=== PATIENT | male | born 1950 | race Caucasian/White ===

== ENCOUNTER 2017-12-01 09:58 | Inpatient (IN) | payer MEDICARE, BC ==
[~2017-12-01] VITALS: Ht 180.3 cm; Wt 85.7 kg
[2017-12-01] VITALS (12 sets, daily range): BP systolic 95–143; BP diastolic 44–102
[~2017-12-01 09:58] MED LIST: BENA5TAB2 PO
--- NOTE | 2017-12-01 10:13 | NUR ---
BBRA FROM HOME C/O ALTERED THIS AM. UPON EMS ARRIVAL, PT AAO X4, NO NEURO DEFICITS, AMB WITH STEADY GAIT. RR EVEN AND UNLABORED. DR BABCOCK AT BEDSIDE FOR EVAL.
[2017-12-01 10:20] LABS: HEMATOCRIT 30 % (39-51); HEMOGLOBIN 9.9 g/dL (13.5-17.5); LYMPHOCYTES # (AUTO) 0.7 /CMM (0.8-4.8); LYMPHOCYTES % (AUTO) 5.6 % (20.0-44.0); MEAN CORPUSCULAR HEMOGLOBIN 33 PG (26.0-33.0); MEAN CORPUSCULAR HGB CONC 34 g/dl (31.0-36.0); MEAN CORPUSCULAR VOLUME 98 fL (80-96); MONOCYTES # (AUTO) 1.5 /CMM (0.1-1.30); MONOCYTES % (AUTO) 11.2 % (2.0-12.0); NEUTROPHILS # (AUTO) 10.9 /CMM (1.8-8.9); NEUTROPHILS % (AUTO) 83.2 % (43.0-81.0); PLATELET COUNT (AUTO) 146 /CMM (150-450); RDW COEFFICIENT OF VARIATION 15.1 (11.5-15.0); RED BLOOD CELL COUNT(AUTO) 3.01 MIL/uL (4.5-6.0); WHITE BLOOD COUNT (AUTO) 13.1 K/uL (4.3-11.0)
[2017-12-01] MEDS ORDERED: IV NS 0.9% 1,000 ML BAG IV ONE (10:30)
[2017-12-01 10:34] LABS: INR 1.15 (0.85-1.15)
[2017-12-01 10:35] LABS: ALANINE AMINOTRANSFERASE 74 U/L (12-78); ALBUMIN 2.6 g/dL (3.4-5.0); ALCOHOL, BLOOD < 3 mg/dL (0-0); ALKALINE PHOSPHATASE 98 U/L (46-116); ASPARTATE AMINOTRANSFERASE 143 U/L (15-37); BILIRUBIN,DIRECT 1.1 mg/dL (0.0-0.2); BILIRUBIN,TOTAL 1.7 mg/dL (0.2-1.0); CALCIUM, SERUM 12.9 mg/dL (8.5-10.1); CARBON DIOXIDE 30 mmol/L (21-32); CHLORIDE 93 mmol/L (98-107); CREATININE 2.5 mg/dL (0.6-1.3); GLUCOSE 162 mg/dL (74-106); SODIUM SERUM 132 mmol/L (136-145)
[2017-12-01 10:37] LABS: UREA NITROGEN, BLOOD 88 mg/dL (7-18)
[2017-12-01 10:38] LABS: TROPONIN I < 0.017 ng/mL (0.00-0.056)
[2017-12-01 10:43] LABS: SERUM AMMONIA 16 umol/L (11-32)
[2017-12-01 10:47] LABS: LYMPHOCYTES % (MANUAL) 7 % (16-48); MONOCYTES % (MANUAL) 8 % (0-11.0); NEUTROPHILS % (MANUAL) 85 (42-76)
[2017-12-01 10:55] LABS: THYROID STIMULATING HORMONE 1.889 uIU/mL (0.358-3.74)
--- NOTE | 2017-12-01 10:59 | NUR ---
URINE OBTAINED SENT TO LAB
[2017-12-01] MEDS ORDERED: LORAZEPAM INJ 2 MG/ML VIAL ONE ×2 (11:05→11:44)
[2017-12-01 11:17] LABS: APPEARANCE,URINE Clear (CLEAR); BILIRUBIN,URINE Negative (NEGATIVE); BLOOD, URINE Moderate Ery/uL (NEGATIVE); COLOR,URINE Yellow (YELLOW); KETONES,URINE Trace (NEGATIVE); LEUKOCYTE ESTERASE ,URINE Small (NEGATIVE); NITRITE, URINE Negative (NEGATIVE); PH,URINE 5.5 (5.0-8.0); PROTEIN,URINE Negative (NEGATIVE); UGLUCOSE Negative (NEGATIVE); UROBILINOGEN,URINE 0.2 EU/dL (0.2)
[2017-12-01 11:29] LABS: BACTERIA,URINE Few /HPF (None Seen); SQUAMOUS EPITHELIAL CELL,UR Few /HPF (None Seen)
[2017-12-01] MEDS ORDERED: LORAZEPAM INJ 2 MG/ML VIAL IV ONE ×6 (11:30→12:30)
[2017-12-01] MEDS ORDERED: Thiamine 100 MG in IV D5W 50 ML IV SCH ×2 (11:30→12:00)
[2017-12-01] MEDS ORDERED: IV NS 0.9% 1,000 ML IV ONE (11:30)
--- NOTE | 2017-12-01 11:35 | NUR ---
PAGED EPIC, DR ZACARIAS IS EDGE BASTER
[2017-12-01] MEDS ORDERED: IV NS 0.9% 1,000 ML IV PRN ×2 (11:43→12:00)
--- NOTE | 2017-12-01 11:45 | NUR ---
PAGED DR MUNGUIA
--- NOTE | 2017-12-01 11:54 | NUR ---
PATIENT TO CT
[2017-12-01] MEDS ORDERED: ZOLPIDEM TARTRATE 5 MG TABLET PO PRN (12:00)
[2017-12-01] MEDS ORDERED: MAG HYDROX/AL HYDROX/SIMETH 30 ML UDC PO PRN (12:00)
[2017-12-01] MEDS ORDERED: MAGNESIUM HYDROXIDE 30 ML UDC PO PRN (12:00)
[2017-12-01] MEDS ORDERED: ONDANSETRON HCL/PF 4 MG/2 ML VIAL IVP PRN (12:00)
[2017-12-01] MEDS: POTASSIUM CL. PREMIX PERIPHER. 50 ML IV SCH ×6 (12:00→19:17)
[2017-12-01] MEDS ORDERED: LORAZEPAM INJ 2 MG/ML VIAL IV PRN (12:00)
[2017-12-01] MEDS: Magnesium 1GM/D5W 100ML PREMIX 100 ML IV SCH ×4 (12:00→18:07)
[2017-12-01] MEDS ORDERED: Magnesium 1GM/D5W 100ML PREMIX 100 ML IV ONE ×2 (12:10→12:41)
[2017-12-01] MEDS ORDERED: POTASSIUM CL. PREMIX PERIPHER. 50 ML ONE ×2 (12:10→12:41)
--- NOTE | 2017-12-01 12:18 | NUR ---
Sharon nicole in ED - 12/01/17 at 1248 by SHANTAL SOLE PATIÑO (NATHAN) [phone]. PLS CALL FOR ANY INFORMATIONS
--- NOTE | 2017-12-01 12:19 | NUR ---
SOLE PATIÑO (SON) [phone]. PLS CALL FOR ANY INFORMATIONS
--- NOTE | 2017-12-01 12:22 | NUR ---
CALLED NURSE SUP TO ICU BED
[2017-12-01 13:01] LABS: THYROID STIMULATING HORMONE 1.989 uIU/mL (0.358-3.74)
[2017-12-01] MEDS ORDERED: POTASSIUM CHLORIDE 20 MEQ TAB.PRT.SR PO ONE (14:00)
[2017-12-01] MEDS: FOLIC ACID 1 MG TABLET PO SCH (14:00)
--- NOTE | 2017-12-01 14:00 | NUR ---
ICU/RN REPORT FROM ER - ROOM 261 REPORT RECEIVED FROM ER NURSE RUCKER FOR PT TO BE ADMITTED FOR DELIRIUM TREMENS UNDER THE CARE OF DR. ZACARIAS. AWAITING FOR PT'S ARRIVAL.
--- NOTE | 2017-12-01 14:15 | NUR ---
ICU/CLEARANCE CENTER MANAGER TO ICU PT ARRIVED VIA GURNEY ACCOMPANIED BY ER NURSE CHAIM AND PACKAGE CAR DRIVER, TRANSFERRED TO HOSPITAL BED, NO ACUTE DISTRESS, PT LETHARGIC, MUMBLES WORDS, OCCASIONALLY RESPONSE TO HIS NAME AND TOUCH. 2L O2 VIA N/C PLACED, LUNG SOUNDS CLEAR. TELE MONITORING PLACED, SINUS RHYTHM. NO EDEMA NOTED. MULTIPLE SCABS ON LEFT LOWER LEG, SKIN TEAR ON LEFT WRIST AND BRUISING ON RIGHT FOREARM. PADDING PLACED ON BED RAILS FOR SAFETY PRECAUTION. ORDERED MEDICATIONS TO BE ADMINISTERED SHORTLY. CL WITHIN REACHED AND SAFETY MAINTAINED. ON GOING MONITORING. Addendum: 12/01/17 at 1851 by CARLENE BERTRAND RN ADDENDUM: NOTED RIGHT LEG STUMP WITH SCANT SEROSANGUINEOUS DRAINAGE.
[2017-12-01] MEDS ORDERED: DEXTROSE 50%-WATER 50 ML DISP.SYRIN IV PRN (16:30)
[2017-12-01] MEDS: LORAZEPAM INJ 2 MG/ML VIAL IV PRN ×2 (16:35→23:01)
[2017-12-01] MEDS ORDERED: CEFTRIAXONE 1 G in IV NS 0.9% 50 ML IV SCH (17:00)
[2017-12-01] MEDS: BLOOD SUGAR DIAGNOSTIC 1 EACH STRIP IN SCH ×2 (17:35→21:12)
[2017-12-01] MEDS: Z GUARD REMEDY 2 OZ OINT TP PRN (17:37)
[2017-12-01] MEDS: INSULIN REGULAR, HUMAN 100 UNIT/ML 3 ML VIAL SQ PRN (18:54)
--- NOTE | 2017-12-01 19:14 | NUR ---
ICU/RN AM SHIFT END NOTES NO ACUTE CHANGE OF CONDITION NOTED SINCE PT WAS ADMITTED EARLIER IN THE DAY, ALL NEEDS MET. PT IS STILL LETHARGIC. PT ENDORSED TO PM NURSE TO CONTINUE CARE. SOFT WRISTS RESTRAINT IN PLACED, CL WITHIN REACHED AND SAFETY MAINTAINED.
--- NOTE | 2017-12-01 19:20 | NUR ---
RN NOTES RECEIVED PT ASLEEP WELL ON BED. BREATHING EVEN AND UNLABORED NO FACIAL COMPLAINED OF PAIN. ALERT TO NAME, AND TACTILE STIMULI. PT IS LETHARGIC, MUMBLING WORDS WHEN ASKED A QUESTION. AFEBRILE. VS WNL. WITH O2 2LPM A NC. SATURATION 100%. WITH IV SITE ON RAC NAD LAC G 18 RUNNING WITH NS @ 150 ML/HR AND MAGNESIUM ONGOING. WILL CONTINUE TO ADMINISTERED THE REST OF REPLACEMENT AND MEDS. RIGHT STUMP WITH DRESSING OFFLOADED WITH PILLOWS. REPOSITIONED FOR SKIN MANAGEMENT. BILATERAL SOFT WRIST RESTRAINT KEPT IN PLACED. WILL CONTINUE TO MONITOR.
--- NOTE | 2017-12-01 23:10 | NUR ---
RN NOTES DELIRIUM TREMENS NOTED ATIVAN PRN GIVEN ORDERED. WILL CONTINUE TO MONITOR.
[2017-12-02] VITALS (78 sets, daily range): BP systolic 48–152; BP diastolic 29–97
[2017-12-02] MEDS: BLOOD SUGAR DIAGNOSTIC 1 EACH STRIP IN SCH ×6 (00:24→20:13)
[2017-12-02] MEDS: IV NS 0.9% 1,000 ML IV PRN ×6 (00:51→17:34)
--- NOTE | 2017-12-02 01:20 | NUR ---
RN NOTES INFORMED BY RT THAT THEY CHANGED O2 FROM NC TO MASK @ 6LPM DUE TO SATURATION SUSTAINED TO 88%. PT SATURATION 94%. PT ASLEEP AT THIS TIME. WILL CONTINUE TO MONITOR.
[2017-12-02 04:46] LABS: BASOPHILS % (AUTO) 0.1 % (0.0-2.0); HEMATOCRIT 29 % (39-51); HEMOGLOBIN 9.7 g/dL (13.5-17.5); LYMPHOCYTES # (AUTO) 0.6 /CMM (0.8-4.8); LYMPHOCYTES % (AUTO) 3.5 % (20.0-44.0); MEAN CORPUSCULAR HEMOGLOBIN 34 PG (26.0-33.0); MEAN CORPUSCULAR HGB CONC 33 g/dl (31.0-36.0); MEAN CORPUSCULAR VOLUME 101 fL (80-96); MONOCYTES # (AUTO) 1.7 /CMM (0.1-1.30); MONOCYTES % (AUTO) 9.5 % (2.0-12.0); NEUTROPHILS # (AUTO) 15.6 /CMM (1.8-8.9); NEUTROPHILS % (AUTO) 86.9 % (43.0-81.0); PLATELET COUNT (AUTO) 163 /CMM (150-450); RDW COEFFICIENT OF VARIATION 15.4 (11.5-15.0); RED BLOOD CELL COUNT(AUTO) 2.89 MIL/uL (4.5-6.0); WHITE BLOOD COUNT (AUTO) 17.9 K/uL (4.3-11.0)
[2017-12-02 05:00] LABS: ALBUMIN 2.5 g/dL (3.4-5.0); BILIRUBIN,TOTAL 1.2 mg/dL (0.2-1.0); CALCIUM, SERUM 10.1 mg/dL (8.5-10.1); CREATININE 1.5 mg/dL (0.6-1.3); MAGNESIUM 2.2 mg/dL (1.8-2.4); PHOSPHORUS 4.1 mg/dL (2.5-4.9); POTASSIUM 3.1 mmol/L (3.5-5.1); TOTAL PROTEIN, SERUM 6.7 g/dL (6.4-8.2)
--- NOTE | 2017-12-02 05:03 | NUR ---
RN NOTES BS 143 MG/DL , INSULIN IS NOT GIVEN DUE TO PT HASN'T EAT YET, STILL ALTERED.
[2017-12-02 05:55] LABS: ABG OXYGEN SATURATION 83.8 % (92.0-98.5); ABG PCO2 105.3 mmHg (35.0-45.0); ABG PH 7.072 (7.350-7.450); ABG PO2 71.6 mmHg (75.0-100.0); AaDO2 151.7 mmHg; COHb 0.3 % (0.5-1.5); MetHb 0.9 % (0.0-1.5); O2Hb 82.8 % (94.0-97.0); SITE, ABG Left Radial; VENT MODE, BG SM
[2017-12-02] MEDS ORDERED: PROPOFOL 100 ML ONE (06:25)
--- NOTE | 2017-12-02 06:28 | NUR ---
@0545 STAT ABG WAS DONE. CRITICAL VALUE GIVEN TO OSCAR MONTENEGRO AND ED MOTION DESIGNER. CALLED ER MD FOR INTUBATION. DR BURR INTUBATED THE PT WITH 8.0 ETT SECURED AT 26CM AT THE LIP. GOOD COLOR CHANGE ON CO2 DETECTOR, EQUAL CHEST RISE AND BREATH SOUND. PLACED ON ESPRIT VENT AC 18, 550, 80% PER MD. ALARMS SET AND AUDIBLE. AMBU BAG AT BEDSIDE. Addendum: 12/02/17 at 0631 by DIONNE ROSS RT Amended: Links added.
[2017-12-02] MEDS ORDERED: SODIUM BICARBONATE SYR 50 MEQ/50 ML DISP.SYRIN IV ONE (07:00)
[2017-12-02] MEDS ORDERED: DILTIAZEM HCL 50 MG IV IV ONE (07:00)
[2017-12-02] MEDS: PROPOFOL 100 ML IV PRN ×4 (07:08→21:25)
--- NOTE | 2017-12-02 07:12 | NUR ---
RT PER MD ORDER RR INCREASED TO 24. PATIENT ORALLY INTUBATED ON MECH VENT. VENT ALARMS CHECKED + AUDIBLE. PATIENT IN CRITICAL CONDITION. SUCTIONED WITH SMALL PALE SECRETIONS. AMBU BAG AT HOB. Addendum: 12/02/17 at 0713 by IZZY CONNOR RT Amended: Links added.
[2017-12-02] MEDS ORDERED: PIPERACILLIN /TAZOBACTAM 4.5 G in IV NS 0.9% 50 ML IV SCH (07:30)
--- NOTE | 2017-12-02 07:35 | NUR ---
ICU/RN PT IS JUST INTUBATED ON THE VENT AC MODE,FIO2-80%.BP 66/35.BOLUS NS IV STARTED ORDERED.DR MUNGUIA AT BEDSIDE.LEVOPHED ORDERED.SEDATED ON DIPRIVAN .BILATERAL WRIST RESTRAINS ON .PT HAS RIGHT BKA.STUMP IS WARM AND RED.MD NOTIFIED.SUCTION PROVIDED.REPOSITION FOR COMFORT.
--- NOTE | 2017-12-02 07:50 | NUR ---
RN NOTES 05:30 - WHILE PERICARE RENDERED NOTED PT IS MORE LETHARGIC AND NOT RESPONSIVE TO PAIN, ABG ORDERED BY CHARGE NURSE WITH WITH CRITICAL VALUE OF PH 7.072, PCO2 105.3, PO2 71.6 HCO3 30.0, 05:50 CHARGE NURSE TO CALLED ER MD DR. BURR TO INTUBATE THE PATIENT 06:08 - INTUBATED PT BY DR BURR WITH 8.0 ETT SECURED AT 26CM AT THE LIP. PLACED ON VENT AC 18, 550, 80% PER MD. PT TOLERATED WELL SATURATION BACK TO 98%.STAT CXR ORDER. 06:30 - CALLED [facility] (SON) FOR UPDATE ABOUT THE PATIENT BUT NOT PICKING UP THE PHONE. 06:45 - DANIEL LEUNG CALLED BACK WITH ORDER TO CHANGE RATE TO 24 AND RECHECKED ABG AN HOUR (0800), BICARAB 50 MEQ IVP ONCE, CARDIZEM 10 MG IVP ONCE AND TI GIVE 4 BAGS OF KCL IV TO REPLACED KCL. AND PICC LINE INSERTION, NOTED AND CARRIED OUT ORDERS. DR. MUNGUIA ON THE FLOOR AND INFORMED ABOUT THE PT. EKG RESULT. 07:12AM - DR. ELAM CALLED AND UPDATE ABOUT THE PATIENT STATUS WITH ORDER TO CHANGED CEFTRIAXONE TO ZOSYN 4.5 GM IV Q8H AND DO BLOOD CULTURE. NOTED AND CARRIED OUT ORDER. THE REST OF THE ORDER AND UPDATE ABOUT THE PATIENT REPORT TO CL FOR CONTINUITY OF CARE. AND TO FOLLOW UP THE FAMILY ABOUT THE PATIENT STATUS.
[2017-12-02] MEDS: POTASSIUM CL. PREMIX PERIPHER. 50 ML IV SCH ×6 (08:03→13:25)
[2017-12-02 08:10] LABS: THYROID STIMULATING HORMONE 1.17 uIU/mL (0.358-3.74)
--- NOTE | 2017-12-02 09:00 | NUR ---
ICU/RN F/C INSERTED,OG TUBE INSERTED.REDNESS ON VICENTE AREA NOTED.CARDIZEM IV NOT GIVEN PT CONVERTED FROM A-FIB TO SINUS .EKG PROVIDED.DUE MEDS ARE GIVEN ORDERED.CONTINUE MONITORING.
[2017-12-02 09:07] LABS: ABG BASE EXCESS 1.7 mmol/L; ABG OXYGEN SATURATION 98.2 % (92.0-98.5); ABG PCO2 26.3 mmHg (35.0-45.0); ABG PH 7.562 (7.350-7.450); ABG PO2 154.5 mmHg (75.0-100.0); AaDO2 388.3 mmHg; COHb 0.2 % (0.5-1.5); MetHb 0.7 % (0.0-1.5); O2Hb 97.3 % (94.0-97.0); PEEP,BG 0 cm H2O; SITE, ABG Right Radial
[2017-12-02] MEDS: THIAMINE HCL 100 MG TABLET PO SCH (09:08)
[2017-12-02] MEDS: FOLIC ACID 1 MG TABLET PO SCH (09:08)
[2017-12-02] MEDS: LORAZEPAM INJ 2 MG/ML VIAL IV PRN ×2 (09:08→10:28)
--- NOTE | 2017-12-02 10:57 | NUR ---
WOUND CARE CONSULT: PT WAS SEEN BY PLASTIC SURGERY TEAM THIS AM. WILL DEFER TO SURGICAL TEAM FOR WOUND TREATMENT PLAN. PT IS INTUBATED. ALL SKIN PROTECTION AND PRESSURE ULCER PREVENTION MEASURES IN PLACE AND DISCUSSED WITH NURSING STAFF.
[2017-12-02] MEDS ORDERED: ETOMIDATE 2 MG/ML VIAL IV ONE (11:27)
[2017-12-02] MEDS ORDERED: ROCURONIUM BROMIDE 50 MG/5 ML IV ONE (11:27)
[2017-12-02] MEDS: PIPERACILLIN /TAZOBACTAM 3.375 G in IV D5W 50 ML IV SCH ×3 (12:02→23:42)
[2017-12-02] MEDS: SOD FERRIC GLUC 125 MG in IV NS 0.9% 100 ML IV SCH (14:08)
[2017-12-02] MEDS: NOREPINEPHRINE 8 MG in IV D5W 500 ML IV PRN (14:36)
--- NOTE | 2017-12-02 17:00 | NUR ---
ICU/RN PT PLACED ON [employer].DUE MEDS ARE GIVEN ORDERED.PT IS ON LEVOPHED AND SEDATED WITH DIPRIVAN AT 50 MCG.DUE MEDS ARE GIVEN ORDERED.SUCTION PROVIDED.REPOSITION FOR COMFORT.
[2017-12-02] MEDS ORDERED: FEE PK DOSING 1 MIN EA MC ONE (18:36)
[2017-12-02] MEDS: VANCOMYCIN 1.25 GM in IV D5W 500 ML IV SCH (19:44)
--- NOTE | 2017-12-02 20:00 | NUR ---
PRINTING ENGINEER NOTES RECEIVED PT IN BED, SEDATED. AROUSABLE TO DEEP PAIN. TELE READS SR AT 69 BPM. ON VENT VIA ETT AT AC 24, TV 550, FIO2 55%, PEEP 0, TOLERATING WELL. CURRENTLY NPO EXCEPT MEDS. CLAIRE CATH IN PLACE, DRAINING WELL TO GRAVITY. IV SITES AT RAC 18G, LAC 18G, PICC AT JOHN, RUNNING NS AT 150 ML/HR, DIPRIVAN AT 50 MCG/KG/MIN, LEVOPHED AT 2 MCG/KG/MIN. RIGHT BKA WITH WOUND, DRESSING CLEAN AND INTACT. TURNED AND REPOSITIONED, HOB ELEVATED, SIDE RAILS X3, WRIST RESTRAINTS IN PLACE, NO S/S OF PAIN.
[2017-12-02] MEDS: INSULIN REGULAR, HUMAN 100 UNIT/ML 3 ML VIAL SQ PRN (20:12)
--- NOTE | 2017-12-02 20:40 | NUR ---
PT ON VENT A/C MODE. PT TOLL SETTINGS WELL WITH NO RESPIRATORY DISTRESS NOTED ATT. PT INTUBATED WITH 8.0 ET TUBE 26 CM AT THE TEETH. VENT ALARMS CHECKED FOUND TO BE FUNCTIONAL AUDIBLE AND WITHIN LIMITS. B/S DIMINISHED SX PRN RETURNING SMALL TO MODERATE PALE YELLOW SECRETIONS. VENT PLUGGED INTO RED OUTLET. BVM AT BEDSIDE.
[2017-12-03] VITALS (83 sets, daily range): BP systolic 82–158; BP diastolic 45–97
[2017-12-03] MEDS: PROPOFOL 100 ML IV PRN ×5 (00:13→23:12)
[2017-12-03] MEDS: BLOOD SUGAR DIAGNOSTIC 1 EACH STRIP IN SCH ×8 (00:22→23:23)
[2017-12-03] MEDS: INSULIN REGULAR, HUMAN 100 UNIT/ML 3 ML VIAL SQ PRN ×4 (00:26→23:10)
[2017-12-03] MEDS: IV NS 0.9% 1,000 ML IV PRN (01:43)
[2017-12-03 04:39] LABS: BASOPHILS % (AUTO) 0.2 % (0.0-2.0); EOSINOPHILS % (AUTO) 0.2 % (0.0-6.0); HEMATOCRIT 25 % (39-51); HEMOGLOBIN 8.6 g/dL (13.5-17.5); LYMPHOCYTES # (AUTO) 0.6 /CMM (0.8-4.8); LYMPHOCYTES % (AUTO) 8.4 % (20.0-44.0); MEAN CORPUSCULAR HEMOGLOBIN 33 PG (26.0-33.0); MEAN CORPUSCULAR HGB CONC 34 g/dl (31.0-36.0); MEAN CORPUSCULAR VOLUME 98 fL (80-96); MONOCYTES # (AUTO) 1.1 /CMM (0.1-1.30); MONOCYTES % (AUTO) 16.4 % (2.0-12.0); NEUTROPHILS # (AUTO) 5.1 /CMM (1.8-8.9); NEUTROPHILS % (AUTO) 74.8 % (43.0-81.0); PLATELET COUNT (AUTO) 108 /CMM (150-450); RDW COEFFICIENT OF VARIATION 15.1 (11.5-15.0); RED BLOOD CELL COUNT(AUTO) 2.57 MIL/uL (4.5-6.0); WHITE BLOOD COUNT (AUTO) 6.9 K/uL (4.3-11.0)
[2017-12-03 04:57] LABS: ALBUMIN 1.8 g/dL (3.4-5.0); BILIRUBIN,TOTAL 1.3 mg/dL (0.2-1.0); CALCIUM, SERUM 8.5 mg/dL (8.5-10.1); CREATININE 1.2 mg/dL (0.6-1.3); MAGNESIUM 1.4 mg/dL (1.8-2.4); TOTAL PROTEIN, SERUM 5.5 g/dL (6.4-8.2)
[2017-12-03 05:12] LABS: PHOSPHORUS 0.8 mg/dL (2.5-4.9); TROPONIN I 0.783 ng/mL (0.00-0.056)
[2017-12-03 05:15] LABS: LYMPHOCYTES % (MANUAL) 7 % (16-48); NEUTROPHILS % (MANUAL) 82 (42-76)
[2017-12-03 05:16] LABS: MONOCYTES % (MANUAL) 11 % (0-11.0)
[2017-12-03] MEDS: PIPERACILLIN /TAZOBACTAM 3.375 G in IV D5W 50 ML IV SCH ×3 (05:22→17:48)
--- NOTE | 2017-12-03 05:30 | NUR ---
BOAT MECHANIC NOTES CRITICAL LAB VALUE FROM AM LABS: K 2.0 PHOS 0.8 TROPONIN 0.783 DANIEL STRATTON CONTACTED AND MADE AWARE, NEW ORDERS RECEIVED. FOR POTASSIUM, PHOSPHATE AND MAGNESIUM REPLETION AND STAT EKG.
[2017-12-03] MEDS ORDERED: POTASSIUM CL. PREMIX PERIPHER. 50 ML IV STA (05:37)
[2017-12-03] MEDS ORDERED: Magnesium 1GM/D5W 100ML PREMIX 100 ML IV ONE (05:55)
[2017-12-03] MEDS: Magnesium 1GM/D5W 100ML PREMIX 100 ML IV SCH ×5 (06:06→18:54)
--- NOTE | 2017-12-03 06:20 | NUR ---
HI TEACHER NOTES CONTACTED DANIEL STRATTON WITH EKG RESULTS AND MADE AWARE. SHE WILL MAKE DR MUNGUIA AWARE AND HE WILL SEE THE PATIENT THIS MORNING, PER DANIEL STRATTON.
[2017-12-03] MEDS ORDERED: POTASSIUM CL. PREMIX PERIPHER. 50 ML IV SCH ×2 (07:00→13:00)
--- NOTE | 2017-12-03 07:15 | NUR ---
INFORMATION ASSURANCE ENGINEER NOTES RECEIVED PATIENT SEDATED , RESPONSIVE TO DEEP PAIN STIMULI , NOT IN ACUTE DISTRESS , RESPIRATIONS EVEN AND UNLABORED WITH SPO2 OF 100% VIA MECHANICAL VENT SETTINGS ORDERED . ETT 8.0 / [address] , SR 80'S WITH EPISODES OF AFIB , FC DRAINING VIA GRAVITY WITH CLEAR YELLOW URINE , R BKA DRESSING C/D/I , OGT IN PLACE CLAMPED , JOHN PICC LINE WITH DIRPIVAN @ 50MCG/KG/MIN , 1GM OF MAGNESIUM @ 100ML/HR , INFUSING WELL , RIGHT AND LEFT AC # 18 PATENT AND INTACT SL , ALL NEEDS ATTENDED , BED ON LOW AND LOCKED POSITION ,PADDED SIDE RAILS X2 , HOB @ 35 , WILL CONTINUE TO MONITOR
[2017-12-03] MEDS: Potassium Chloride 40 MEQ in IV NS 0.9% 1,000 ML IV SCH ×3 (07:22→23:10)
[2017-12-03] MEDS: Potassium Phosphate meq 11 MEQ in IV D5W 100 ML IV SCH ×2 (07:22→10:15)
[2017-12-03 07:56] LABS: CALCIUM, SERUM 8.8 mg/dL (8.5-10.1); CREATININE 1.3 mg/dL (0.6-1.3); MAGNESIUM 1.8 mg/dL (1.8-2.4)
[2017-12-03 07:58] LABS: PHOSPHORUS 0.8 mg/dL (2.5-4.9); POTASSIUM 2.1 mmol/L (3.5-5.1)
[2017-12-03] MEDS: FOLIC ACID 1 MG TABLET PO SCH (08:24)
[2017-12-03] MEDS: THIAMINE HCL 100 MG TABLET PO SCH (08:24)
[2017-12-03] MEDS: VANCOMYCIN 1.25 GM in IV D5W 500 ML IV SCH ×2 (08:25→20:00)
--- NOTE | 2017-12-03 09:00 | NUR ---
APPLICATIONS CONSULTANT NOTES DIPRIVAN OFF , PT ON SEDATION VACATION ,BILATERAL SOFT WRIST RESTRAINTS IN PLACE , WILL CONTINUE TO MONITOR
--- NOTE | 2017-12-03 10:00 | NUR ---
CHILDREN'S LUNCHROOM SUPERVISOR NOTES RECEIVED A CALL FROM RADIOLOGY , FOLLOWING UP WITH CT OF THE RIGHT KNEE WITHOUT CONTRAST , DISCUSSED THAT PT IS CURRENTLY OFF SEDATION FOR SEDATION VACATION , WILL CALL THEM LATER IF PT IS BACK ON SEDATION
--- NOTE | 2017-12-03 10:37 | NUR ---
TELEPHONE ANSWERING SERVICE OPERATOR NOTES NOTIFIED DR MUNGUIA REGARDING EKG RESULT OF THE PATIENT , MD AWARE , NO NEW ORDERS RECEIVED
--- NOTE | 2017-12-03 11:03 | NUR ---
MAKING MACHINE CATCHER NOTES SEEN AND EVALUATED BY DR JEAN , DISCUSSED LABS , CHEST XRAY , V/S , CURRENT VENT SETTINGS , OFF PRESSORS @ 0600 AND DIPRIVAN @ 0900 , PATIENT RESPONSIVE TO PAIN STIMULI , STILL SEDATED , PER MD CHANGE RATE TO 16 , ORDERS CARRIED OUT
[2017-12-03] MEDS ORDERED: POTASSIUM CHLORIDE 20 MEQ POWDER PACKET GT ONE (13:30)
[2017-12-03] MEDS: SOD FERRIC GLUC 125 MG in IV NS 0.9% 100 ML IV SCH (13:33)
--- NOTE | 2017-12-03 13:43 | NUR ---
YARN EXAMINER NOTES DONOVAN RESTARTED @ 5MCG/KG/MIN DUE TO HR OF AFIB 130'S NON SUSTAINING WITH EPISODES OF DISTRESS , RR OF 35 CPM , SPO2 OF 88-90% WITH MODERATE AGITATION , WILL CONTINUE TO MONITOR Addendum: 12/03/17 at 1344 by JACQUELYN YANG RN PATIENT ABLE TO FOLLOW SIMPLE COMMANDS ,OPENS EYES ,TRACKS , DROWSY ,
[2017-12-03] MEDS: LORAZEPAM INJ 2 MG/ML VIAL IV PRN ×2 (14:19→18:14)
--- NOTE | 2017-12-03 15:03 | NUR ---
calender worker helper received a phone call from pt's son Prince requesting to speak to KEY regarding discharge plan, caregiving services etc. KEY met with Prince and rn case manager hospice Melissa Fraser outside office. Prince informed KEY that pt. lives alone and is an amputee. Pt. needs assistance in taking his medications etc. According to Prince, pt. does not care for himself well. Melissa Fraser discussed with Prince about snf placement versus home health. Prince is unsure if pt. would accept SNF placement. Pt. is currently intubated. Prince was given various brochures for caregiving services.
--- NOTE | 2017-12-03 15:13 | NUR ---
PT RECEIVED IN ICU ORALLY INTUBATED ON MECHANICAL VENT W/ SETTINGS PER MD ORDER. VENT IN RED OUTLET, AMBUBAG AT BEDSIDE, VENT ALARMS CHECKED AND AUDIBLE. PT SX'ED AND LAVAGED PRN, HME CHANGED PRN. BREATH SOUNDS EQUAL, DIMINISHED. NO RESP DISTRESS NOTED. PLAN IS TO CONTINUE CARE UNDER CURRENT MD ORDERS AND MONITOR FOR CHANGES. Addendum: 12/03/17 at 1514 by NINA CHENG RT Amended: Links added.
--- NOTE | 2017-12-03 16:30 | NUR ---
FINGER BUFF SEWER NOTES SPOKE WITH RADIOLOGIST , FOLLOWED UP THE CT SCAN OF THE RIGHT KNEE WITHOUT CONTRAST , PER QU , THEY ARE STILL DOING ER THEY WILL CALL ME ONCE THEY ARE DONE .
[2017-12-03 17:03] LABS: CALCIUM, SERUM 8.3 mg/dL (8.5-10.1); CREATININE 1.1 mg/dL (0.6-1.3); MAGNESIUM 1.7 mg/dL (1.8-2.4); PHOSPHORUS 1.3 mg/dL (2.5-4.9); POTASSIUM 3.2 mmol/L (3.5-5.1)
--- NOTE | 2017-12-03 17:30 | NUR ---
SUPERVISOR EDUCATION NOTES CALLED ARNIE MUNGUIA , DISCUSSED REPEAT BMP RESULTS , PT STILL ON IVF OF NS WITH 40MEQ KCL @ 100ML/HR , LATEST BLOOD SUGAR OF 128MG/DL , PT ON Q4 MODERATE SLIDING SCALE , PER POST ACUTE CARE NURSE PRACTITIONER REPLETE WITH KPHOS 15MMOL X1 AND GIVE MAGNESIUM 2GM IV X1 AND CHANGE SSI TO NPO Q6 SLIDING SCALE , ORDERS CARRIED OUT ,
[2017-12-03] MEDS ORDERED: DEXTROSE 50%-WATER 50 ML DISP.SYRIN IV PRN (18:00)
[2017-12-03] MEDS ORDERED: POTASSIUM PHOSPHATE MM 15 MMOL in IV D5W 250 ML IV ONE (18:00)
--- NOTE | 2017-12-03 19:30 | NUR ---
ICU NOTES RECEIVED PT AGITATED ON VENT VAI ORAL ETT 40% FI02 SATURATION OF 97%.DIPRIVAN INCREASED TO 20 MCG.KG/MIN.MONITOR SHOWS NSR WITHOUT ECTOPICS.RECEIVING 2GM OF MAGNESIUM AND KPHOS 15MMOL.SUCTIONED FOR SCANT YELLOW SECRETIONS FROM ETT AND MODERATE WHITE ORAL SECRETIONS, ORAL CARE DONE.
--- NOTE | 2017-12-03 20:07 | NUR ---
PT RECEIVED INTUBATED 8.0 ETT SECURED AT 26CM AT THE LIP. NO RESP DISTRESS. PT TOLERATING VENT SETTINGS. SX'D FOR SML AMT OF THICK SPANN SECRETIONS. VENT ALARMS SET AND AUDIBLE. AMBU BAG AT BEDSIDE. ETT SECURED, CUFF HOME THEATER EXPERT. VENT PLUGGED INTO RED OUTLET. WILL CONTINUE TO MONITOR. Addendum: 12/03/17 at 2009 by DIONNE ROSS RT Amended: Links added.
--- NOTE | 2017-12-03 21:00 | NUR ---
ICU NOTES TO CT SCAN OF RT. KNEE TO R/O OSTEOMYELITIS.PT ON DIPRIVAN AT 20 MCG/KG/MIN.RESTRAINTS RESTARTED,OFF ONLY FOR 1HR.
--- NOTE | 2017-12-03 21:21 | NUR ---
@[address] @[address]
--- NOTE | 2017-12-03 22:00 | NUR ---
ICU NOTES SON PASCUAL CALLED TO INQUIRE RE:PT'S CONDITION,CONDITION REPORT GIVEN.
--- NOTE | 2017-12-03 23:20 | NUR ---
ICU NOTES BACK TO ROOM WITHOUT INCIDENT.MONITOR SHOWS SINUS RHYTHM-SINUS ARRHYTHMIA W/PAC'S AND PVC'S TO SHORT RUN A-FIB CONTROLLED VENT.RATE.
[2017-12-04] VITALS (51 sets, daily range): BP systolic 88–142; BP diastolic 51–78
[2017-12-04] MEDS: PIPERACILLIN /TAZOBACTAM 3.375 G in IV D5W 50 ML IV SCH ×5 (00:14→23:58)
--- NOTE | 2017-12-04 04:45 | NUR ---
ICU NOTES BUCKING THE VENT,RR=25/MIN.SUCTIONED FOR COPIOUS AMT. OF THICK YELLOW SECRETIONS W/ SALINE LAVAGE.SAT=86%.
[2017-12-04 04:46] LABS: BASOPHILS % (AUTO) 0.3 % (0.0-2.0); EOSINOPHILS % (AUTO) 0.9 % (0.0-6.0); HEMATOCRIT 28 % (39-51); HEMOGLOBIN 9.2 g/dL (13.5-17.5); LYMPHOCYTES # (AUTO) 0.8 /CMM (0.8-4.8); MEAN CORPUSCULAR HEMOGLOBIN 33 PG (26.0-33.0); MEAN CORPUSCULAR HGB CONC 33 g/dl (31.0-36.0); MEAN CORPUSCULAR VOLUME 98 fL (80-96); MONOCYTES # (AUTO) 1.6 /CMM (0.1-1.30); MONOCYTES % (AUTO) 18.8 % (2.0-12.0); PLATELET COUNT (AUTO) 103 /CMM (150-450); RDW COEFFICIENT OF VARIATION 15.6 (11.5-15.0); RED BLOOD CELL COUNT(AUTO) 2.84 MIL/uL (4.5-6.0); WHITE BLOOD COUNT (AUTO) 8.5 K/uL (4.3-11.0)
--- NOTE | 2017-12-04 04:56 | NUR ---
ICU NOTES SATURATION REMAINS LOW AT 86%,FIO2 INCREASED TO 60% BY RT.DIPRIVAN INCREASED TO 30MCG/KG/MIN FOR AGITATION.
[2017-12-04 04:59] LABS: ALBUMIN 1.9 g/dL (3.4-5.0); BILIRUBIN,TOTAL 1.7 mg/dL (0.2-1.0); CALCIUM, SERUM 7.4 mg/dL (8.5-10.1); MAGNESIUM 1.7 mg/dL (1.8-2.4); PHOSPHORUS 1.4 mg/dL (2.5-4.9); POTASSIUM 3.1 mmol/L (3.5-5.1); TOTAL PROTEIN, SERUM 5.8 g/dL (6.4-8.2)
--- NOTE | 2017-12-04 05:15 | NUR ---
FiO2 INCREASED TO 60% DO TO LOW O2 SAT. RN NOTIFIED.
[2017-12-04] MEDS: BLOOD SUGAR DIAGNOSTIC 1 EACH STRIP IN SCH ×4 (05:28→23:58)
[2017-12-04] MEDS: PROPOFOL 100 ML IV PRN ×3 (05:29→23:59)
[2017-12-04 05:37] LABS: EOSINOPHILS % (MANUAL) 2 % (0-4); LYMPHOCYTES % (MANUAL) 10 % (16-48); MONOCYTES % (MANUAL) 12 % (0-11.0); NEUTROPHILS % (MANUAL) 76 (42-76)
--- NOTE | 2017-12-04 06:25 | NUR ---
ICU/RN. CONDITION REPORT UNCHANGED,SAT 98% ON 60%.REMAINS ON DIPRIVAN DRIP.
--- NOTE | 2017-12-04 07:09 | NUR ---
ICU NOTES REPORT AND CARE OF PT GIVEN TO SELENE MOORE.
--- NOTE | 2017-12-04 07:45 | NUR ---
MANUFACTURING MAINTENANCE MANAGER RECEIVED PATIENT FROM THE PREVIOUS SHIFT. PATIENT IS IN BED. RESTING COMFORTABLY. SEDATED ON DIPRIVAN 30 MCG. VENT SETTINGS REVIEWED AND VERIFIED. STABLE BP. CLAIRE DRAINING URINE TO GRAVITY. RESTRAINTS ARE ON FOR SAFETY. TURNED AND REPOSITIONED FOR COMFORT AND WOUND PREVENTION. WILL CONTINUE TO MONITOR AND PROVIDE CARE.
[2017-12-04 08:24] LABS: ABG OXYGEN SATURATION 95.1 % (92.0-98.5); ABG PCO2 28.7 mmHg (35.0-45.0); ABG PH 7.477 (7.350-7.450); ABG PO2 81.6 mmHg (75.0-100.0); AaDO2 314.6 mmHg; COHb 0.2 % (0.5-1.5); PEEP,BG 0 cm H2O; SITE, ABG Right Radial; VT, ABG 550 mL
[2017-12-04] MEDS: VANCOMYCIN 1.25 GM in IV D5W 500 ML IV SCH ×2 (08:37→20:15)
[2017-12-04] MEDS: Potassium Chloride 40 MEQ in IV NS 0.9% 1,000 ML IV SCH ×2 (08:38→20:39)
[2017-12-04] MEDS: FOLIC ACID 1 MG TABLET PO SCH (08:38)
[2017-12-04] MEDS: THIAMINE HCL 100 MG TABLET PO SCH (08:38)
--- NOTE | 2017-12-04 08:50 | NUR ---
TAILOR GARMENT FITTER DURING 40 MINUTES SEDATION VACATION TIME, RN TURNED OFF THE PROPOFOL GTT. PATIENT NOTED TO WAKE UP, BUT WITH DISTRESS. PATIENT NOTED TO BITE ON THE ETT, AND TO HAVE FACIAL GRIMACING. NO PURPOSEFUL MOVEMENT. ORAL SECTIONS SUCTIONED. RESTARTED ON SEDATION DUE TO HIGH LEVEL OF DISTRESS.
[2017-12-04] MEDS: POTASSIUM PHOSPHATE MM 15 MMOL in IV D5W 250 ML IV SCH ×2 (09:42→13:59)
[2017-12-04] MEDS: Magnesium 1GM/D5W 100ML PREMIX 100 ML IV SCH ×2 (09:46→11:59)
[2017-12-04] MEDS ORDERED: POTASSIUM CL. PREMIX PERIPHER. 50 ML IV SCH (12:00)
--- NOTE | 2017-12-04 12:07 | NUR ---
VENT CHANGES BELOW PER DR. JEAN: VT 500 FIO2 50% Addendum: 12/04/17 at 1208 by HOMERO PONCE RT Amended: Links added.
[2017-12-04] MEDS: INSULIN REGULAR, HUMAN 100 UNIT/ML 3 ML VIAL SQ PRN (12:11)
[2017-12-04] MEDS: SOD FERRIC GLUC 125 MG in IV NS 0.9% 100 ML IV SCH (17:32)
--- NOTE | 2017-12-04 18:50 | NUR ---
JUDO TEACHER RN COMMUNICATED WITH ARNIE REGARDING INABILITY TO DO MRI OF THE INFECTED KNEE SINCE FACILITY DOES NOT HAVE MRI COMPATIBLE VENTILATORS. ARNIE INFORMED RN TO HOLD OFF ON THE MRI AND ENDORSE TO NEXT SHIFT.
--- NOTE | 2017-12-04 19:30 | NUR ---
HEAD OF STRATEGY INITIAL NOTE RECEIVED PATIENT SEDATED. NO S/S OF PAIN OR DISCOMFORT. NO RESPIRATORY DISTRESS NOTED. WITH ETT AT 8CM/26CM AT THE LIP. WITH VENT SETTINGS AC 16, TV 500, FIO2 50%, PEEP 0. WITH OGT PATENT, NOT IN PLACE, ADVANCED OGT, PLACEMENT CONFIRMED BY TWO NURSES. OGT IN PLACE. ON TELE MONITOR SR. WITH JOHN PICC LINE PATENT AND INTACT, IVF RUNNING, DIPRIVAN AT 30MCG/KG/MIN. BILATERAL SOFT WRIST RESTRAINTS IN PLACE, CIRCULATION CHECKED. F/C PATENT AND INTACT, DRAINING BY GRAVITY. HOB ELEVATED. TURNED AND REPOSITIONED. SIDE RAILS UP AND LOCKED. BED KEPT AT LOWEST POSITION. WILL CONTINUE TO MONITOR.
--- NOTE | 2017-12-04 22:24 | NUR ---
PT RECEIVED INTUBATED 8.0 ETT SECURED AT 26CM AT THE LIP. NO RESP DISTRESS. PT TOLERATING VENT SETTINGS. SX'D FOR MOD AMT OF THICK YELLOW SECRETIONS. VENT ALARMS SET AND AUDIBLE. AMBU BAG AT BEDSIDE. ETT SECURED, CUFF BEHAVIORAL PSYCHOLOGIST. VENT PLUGGED INTO RED OUTLET. WILL CONTINUE TO MONITOR. Addendum: 12/04/17 at 2224 by DIONNE ROSS RT Amended: Links added.
[2017-12-05] VITALS (56 sets, daily range): BP systolic 100–138; BP diastolic 51–86
[2017-12-05] MEDS: INSULIN REGULAR, HUMAN 100 UNIT/ML 3 ML VIAL SQ PRN (00:02)
--- NOTE | 2017-12-05 04:00 | NUR ---
PLUG DRILL OPERATOR NOTE NOTED WITH ORAL TEMP 99.8. COOLING MEASURES RENDERED. WILL CONTINUE TO MONITOR.
[2017-12-05 04:20] LABS: BASOPHILS % (AUTO) 0.2 % (0.0-2.0); EOSINOPHILS % (AUTO) 0.7 % (0.0-6.0); HEMATOCRIT 26 % (39-51); HEMOGLOBIN 8.8 g/dL (13.5-17.5); LYMPHOCYTES # (AUTO) 0.7 /CMM (0.8-4.8); MEAN CORPUSCULAR HEMOGLOBIN 33 PG (26.0-33.0); MEAN CORPUSCULAR HGB CONC 34 g/dl (31.0-36.0); MEAN CORPUSCULAR VOLUME 98 fL (80-96); MONOCYTES # (AUTO) 1.7 /CMM (0.1-1.30); MONOCYTES % (AUTO) 15.9 % (2.0-12.0); NEUTROPHILS # (AUTO) 8.3 /CMM (1.8-8.9); NEUTROPHILS % (AUTO) 77.2 % (43.0-81.0); PLATELET COUNT (AUTO) 131 /CMM (150-450); RDW COEFFICIENT OF VARIATION 15.1 (11.5-15.0); RED BLOOD CELL COUNT(AUTO) 2.69 MIL/uL (4.5-6.0); WHITE BLOOD COUNT (AUTO) 10.8 K/uL (4.3-11.0)
[2017-12-05 04:46] LABS: TROPONIN I 0.08 ng/mL (0.00-0.056)
[2017-12-05] MEDS: ACETAMINOPHEN 325 MG TABLET PO PRN (05:13)
[2017-12-05] MEDS: BLOOD SUGAR DIAGNOSTIC 1 EACH STRIP IN SCH ×3 (05:13→17:19)
[2017-12-05] MEDS: PIPERACILLIN /TAZOBACTAM 3.375 G in IV D5W 50 ML IV SCH ×3 (05:13→17:21)
[2017-12-05 05:42] LABS: LYMPHOCYTES % (MANUAL) 8 % (16-48); MONOCYTES % (MANUAL) 12 % (0-11.0); NEUTROPHILS % (MANUAL) 80 (42-76)
[2017-12-05 06:06] LABS: ALBUMIN 1.6 g/dL (3.4-5.0); BILIRUBIN,TOTAL 2.2 mg/dL (0.2-1.0); CALCIUM, SERUM 7.2 mg/dL (8.5-10.1); MAGNESIUM 1.5 mg/dL (1.8-2.4); PHOSPHORUS 1.7 mg/dL (2.5-4.9); POTASSIUM 3.2 mmol/L (3.5-5.1); TOTAL PROTEIN, SERUM 5.4 g/dL (6.4-8.2)
--- NOTE | 2017-12-05 06:10 | NUR ---
ELECTRONIC DESIGN ENGINEER CLOSING NOTE NO SIGNIFICANT CHANGES OVERNIGHT. TOLERATING VENT SETTINGS, SUCTIONED NEEDED. OGT PATENT AND INTACT, IN PLACE. F/C PATENT AND INTACT, DRAINING BY GRAVITY. IVF RUNNING, DIPRIVAN AT 30MCG/KG/MIN. ALL DUE MEDS GIVEN. SEIZURE PRECAUTIONS OBSERVED. KEPT CLEAN AND DRY. TURNED AND REPOSITIONED Q2 AND PRN. WOUND TX PROVIDED. SIDE RAILS UP AND LOCKED. BED KEPT AT LOWEST POSITION. WILL ENDORSE CONTINUITY OF CARE TO AM NURSE.
--- NOTE | 2017-12-05 06:42 | NUR ---
TEXTED DR. HERRERA FOR MRI APPROVAL.
[2017-12-05] MEDS: PROPOFOL 100 ML IV PRN ×3 (06:45→21:15)
--- NOTE | 2017-12-05 06:47 | NUR ---
PROFESSIONAL GOLF TOURNAMENT PLAYER NOTE NOTED PATIENT WITH BLACK TARRY STOOL. SPECIMEN COLLECTED, MADE AWARE. WILL RELAY TO AM NURSE.
[2017-12-05] MEDS: VANCOMYCIN 1.25 GM in IV D5W 500 ML IV SCH ×2 (08:56→19:57)
[2017-12-05] MEDS: Potassium Chloride 40 MEQ in IV NS 0.9% 1,000 ML IV SCH (08:56)
[2017-12-05] MEDS: THIAMINE HCL 100 MG TABLET PO SCH (08:56)
[2017-12-05] MEDS: FOLIC ACID 1 MG TABLET PO SCH (08:56)
--- NOTE | 2017-12-05 10:26 | NUR ---
AIRCRAFT BODY REPAIRER POST CPAP NOTE OFF SEDATION PATIENT NOTED TO BE RESTLESS AND AGITATED WITH RR OF 48 ON CPAP MODE. PATIENT WAS RESTARTED ON DIPRIVAN. MERCHANT MILL UTILITY WORKER AWARE.
[2017-12-05] MEDS ORDERED: POTASSIUM CHLORIDE 20 MEQ POWDER PACKET GT ONE ×2 (10:30→13:00)
[2017-12-05] MEDS: Magnesium 1GM/D5W 100ML PREMIX 100 ML IV SCH ×2 (13:04→15:35)
[2017-12-05] MEDS ORDERED: FUROSEMIDE 20 MG/2 ML VIAL IV STA (14:45)
--- NOTE | 2017-12-05 14:47 | NUR ---
0940 pt placed on cpap mode per md order. alarms adjusted. at 1030 pt placed back on ac mode. due to elevated work of breathing. RN and MD aware of changes.
[2017-12-05] MEDS: SOD FERRIC GLUC 125 MG in IV NS 0.9% 100 ML IV SCH (15:53)
[2017-12-05] MEDS ORDERED: NEUTRA PHOS 1 POWD.PACKET PO ONE (17:00)
[2017-12-05] MEDS: LACTOBACILLUS RHAMNOSUS GG 1 EACH CAP.SPRINK PO SCH (17:21)
[2017-12-05 17:33] LABS: OCCULT BLOOD STOOL POSITIVE (NEGATIVE)
--- NOTE | 2017-12-05 20:00 | NUR ---
received pt from day shift, sedated on Diprivan at 30mcg, SR, on the vent, lungs congested, some pitting/non pitting, edema, OG clamped, f/c good output, restraints on, R BKA dressing on, v/s stable, no pain, pt turned and repositioned.
[2017-12-06] VITALS (59 sets, daily range): BP systolic 84–131; BP diastolic 41–72
[2017-12-06] MEDS: BLOOD SUGAR DIAGNOSTIC 1 EACH STRIP IN SCH ×5 (00:09→23:06)
[2017-12-06] MEDS: PIPERACILLIN /TAZOBACTAM 3.375 G in IV D5W 50 ML IV SCH ×5 (00:09→23:06)
[2017-12-06] MEDS: Potassium Chloride 40 MEQ in IV NS 0.9% 1,000 ML IV SCH ×2 (00:09→12:12)
[2017-12-06] MEDS: INSULIN REGULAR, HUMAN 100 UNIT/ML 3 ML VIAL SQ PRN ×3 (00:12→23:07)
[2017-12-06] MEDS: PROPOFOL 100 ML IV PRN ×5 (01:15→21:00)
[2017-12-06 04:14] LABS: BASOPHILS % (AUTO) 0.2 % (0.0-2.0); EOSINOPHILS % (AUTO) 0.6 % (0.0-6.0); HEMATOCRIT 26 % (39-51); HEMOGLOBIN 8.8 g/dL (13.5-17.5); LYMPHOCYTES # (AUTO) 0.8 /CMM (0.8-4.8); LYMPHOCYTES % (AUTO) 7.1 % (20.0-44.0); MEAN CORPUSCULAR HEMOGLOBIN 32 PG (26.0-33.0); MEAN CORPUSCULAR HGB CONC 33 g/dl (31.0-36.0); MEAN CORPUSCULAR VOLUME 97 fL (80-96); MONOCYTES # (AUTO) 1.7 /CMM (0.1-1.30); MONOCYTES % (AUTO) 14.5 % (2.0-12.0); NEUTROPHILS % (AUTO) 77.6 % (43.0-81.0); PLATELET COUNT (AUTO) 147 /CMM (150-450); RDW COEFFICIENT OF VARIATION 15.7 (11.5-15.0); RED BLOOD CELL COUNT(AUTO) 2.71 MIL/uL (4.5-6.0); WHITE BLOOD COUNT (AUTO) 11.6 K/uL (4.3-11.0)
--- NOTE | 2017-12-06 04:54 | NUR ---
PT REC'D INTUBATED VIA ETT SZ 8 SECURED AT 26CM AT THE LIP. PT ON [facility] VENT SETTINGS CHARTED. NO RESP DISTRESS NOTED. NO CHANGES MADE THROUGHOUT SHIFT. SX'D THICK MOD AMT OF YELLOW SECRETIONS. ALARMS ARE SET AND AUDIBLE, VENT PLUGGED INTO RED OUTLET. AMBU BAG BEDSIDE. WILL CONTINUE TO MONITOR. Addendum: 12/06/17 at 0455 by OSVALDO GARCIA RT Amended: Links added.
[2017-12-06 05:13] LABS: CALCIUM, SERUM 7.3 mg/dL (8.5-10.1); MAGNESIUM 1.5 mg/dL (1.8-2.4); PHOSPHORUS 1.6 mg/dL (2.5-4.9); POTASSIUM 3.8 mmol/L (3.5-5.1)
[2017-12-06] MEDS: ACETAMINOPHEN 325 MG TABLET PO PRN ×2 (05:24→15:59)
[2017-12-06 05:54] LABS: BAND % (MANUAL) 2 % (0.0-5.0); LYMPHOCYTES % (MANUAL) 11 % (16-48); METAMYELOCYTES % 5 % (0-0); MONOCYTES % (MANUAL) 4 % (0-11.0); MYELOCYTES % 1 % (0-0); NEUTROPHILS % (MANUAL) 76 (42-76); PROMYELOCYTES % 1 % (0-0)
--- NOTE | 2017-12-06 07:30 | NUR ---
ICU/RN PT IS INTUBATED ON THE VENT AC MODE.FIO2-50%.V/S STABLE,AFEBRILE.NO PAIN REPORTED AT THIS TIME .SEDATED ON DIPRIVAN.RIGHT UPPER ARM PICC LINE.IV INFUSING ORDERED.OG TUBE CLAMPED.F/C DRAINING WITH VASILE URINE.PT HAS RIGHT LEG BKA.STUMP COVERED WITH CLEAN DRESSING AND ELEVATED. SUCTION PROVIDED.LABS REVIEW. NOTIFIED.NEW ORDERS RECEIVED.CONTINUE MONITORING.
[2017-12-06] MEDS: VANCOMYCIN 1.25 GM in IV D5W 500 ML IV SCH ×2 (07:46→19:55)
[2017-12-06] MEDS: THIAMINE HCL 100 MG TABLET PO SCH (08:14)
[2017-12-06] MEDS: Magnesium 1GM/D5W 100ML PREMIX 100 ML IV SCH ×2 (08:14→08:42)
[2017-12-06] MEDS: FOLIC ACID 1 MG TABLET PO SCH (08:14)
[2017-12-06] MEDS: LACTOBACILLUS RHAMNOSUS GG 1 EACH CAP.SPRINK PO SCH ×2 (08:14→15:59)
[2017-12-06] MEDS ORDERED: POTASSIUM PHOSPHATE MM 15 MMOL in IV D5W 250 ML IV SCH (09:00)
--- NOTE | 2017-12-06 09:00 | NUR ---
ICU/RN DUE MEDS ARE GIVEN ORDERED.SUCTION PROVIDED.REPOSITION FOR COMFORT.
--- NOTE | 2017-12-06 10:15 | NUR ---
ICU/RN SEDATION VACATION PROVIDED.PT IS AWAKE,ALERT ,FOLLOWS COMMAND .RESPIRATIONS INCREASED TO 38 BPM.PT IS COUGHING AND BITING TUBES.BILATERAL WRIST RESTRAINS IS ON.FAMILY AT BEDSIDE.SUCTION PROVIDED.PT IS BACK ON PROPOFOL.CONTINUE MONITORING.
[2017-12-06] MEDS: SOD FERRIC GLUC 125 MG in IV NS 0.9% 100 ML IV SCH (14:58)
[2017-12-06] MEDS: LORAZEPAM INJ 2 MG/ML VIAL IV PRN (15:06)
--- NOTE | 2017-12-06 15:56 | NUR ---
ICU/RN PM CARE PROVIDED.WOUND DRESSING DONE ORDERED.SUCTION PROVIDED.PT IS AGITATED.ATIVAN IV GIVEN ORDERED.PT HAS T-100.4.TYLENOL 650 MG VIA OG TUBE GIVEN ORDERED.FEEDING STARTED ORDERED.REPOSITION FOR COMFORT.CONTINUE MONITORING.
[2017-12-06] MEDS: GLUCERNA 1.2 1,000 ML BOTTLE NG PRN (16:27)
[2017-12-07] VITALS (60 sets, daily range): BP systolic 74–154; BP diastolic 36–79
[2017-12-07] MEDS: PROPOFOL 100 ML IV PRN ×5 (03:03→19:57)
[2017-12-07] MEDS: Potassium Chloride 40 MEQ in IV NS 0.9% 1,000 ML IV SCH ×2 (03:26→16:36)
[2017-12-07 04:27] LABS: EOSINOPHILS % (AUTO) 0.4 % (0.0-6.0); HEMATOCRIT 28 % (39-51); HEMOGLOBIN 9.3 g/dL (13.5-17.5); LYMPHOCYTES # (AUTO) 0.9 /CMM (0.8-4.8); LYMPHOCYTES % (AUTO) 5.3 % (20.0-44.0); MEAN CORPUSCULAR HEMOGLOBIN 32 PG (26.0-33.0); MEAN CORPUSCULAR HGB CONC 33 g/dl (31.0-36.0); MEAN CORPUSCULAR VOLUME 97 fL (80-96); MONOCYTES # (AUTO) 1.4 /CMM (0.1-1.30); MONOCYTES % (AUTO) 8.5 % (2.0-12.0); NEUTROPHILS # (AUTO) 14.3 /CMM (1.8-8.9); NEUTROPHILS % (AUTO) 85.8 % (43.0-81.0); PLATELET COUNT (AUTO) 164 /CMM (150-450); RDW COEFFICIENT OF VARIATION 15.3 (11.5-15.0); WHITE BLOOD COUNT (AUTO) 16.7 K/uL (4.3-11.0)
[2017-12-07 04:35] LABS: CALCIUM, SERUM 7.1 mg/dL (8.5-10.1); CREATININE 0.8 mg/dL (0.6-1.3); MAGNESIUM 1.5 mg/dL (1.8-2.4); PHOSPHORUS 1.2 mg/dL (2.5-4.9); POTASSIUM 3.8 mmol/L (3.5-5.1)
[2017-12-07 05:16] LABS: BAND % (MANUAL) 1 % (0.0-5.0); EOSINOPHILS % (MANUAL) 1 % (0-4); LYMPHOCYTES % (MANUAL) 7 % (16-48); MONOCYTES % (MANUAL) 4 % (0-11.0); NEUTROPHILS % (MANUAL) 87 (42-76)
[2017-12-07] MEDS: BLOOD SUGAR DIAGNOSTIC 1 EACH STRIP IN SCH ×3 (06:08→17:06)
[2017-12-07] MEDS: PIPERACILLIN /TAZOBACTAM 3.375 G in IV D5W 50 ML IV SCH ×3 (06:08→17:06)
[2017-12-07] MEDS: INSULIN REGULAR, HUMAN 100 UNIT/ML 3 ML VIAL SQ PRN ×3 (06:13→19:25)
--- NOTE | 2017-12-07 07:40 | NUR ---
ICU/RN PT IS INTUBATED ON THE VENT AC MODE.FIO2-40%.SAT O2-93%.V/S STABLE,AFEBRILE.NO PAIN REPORTED AT THIS TIME.PT IS SEDATED ON DIPRIVAN.BILATERAL SOFT WRIST RESTRAINS ON.RIGHT UPPER ARM PICC LINE.IV INFUSING ORDERED.OG TUBE INFUSING WITH GLUCERNA AT 55 ML/HR. 60 ML RESIDUAL NOTED.F/C DRAINING WITH VASILE URINE.PT HAS BM-YELLOW LIQUID COLOR.VICENTE CARE PROVIDED.SUCTION PROVIDED- YELLOW THICK SECRETION.RIGHT BKA STUMP WOUND COVERED WITH DRESSING.REDNESS ON VICENTE AREA NOTED.Z-GUARD APPLIED. RE[POSITION FOR COMFORT.CONTINUE MONITORING.LABS REVIEW.MG-1.5,PHOS-1.2. NOTIFIED NEW ORDERS RECEIVED.
[2017-12-07] MEDS: VANCOMYCIN 1.25 GM in IV D5W 500 ML IV SCH (07:57)
[2017-12-07] MEDS: LACTOBACILLUS RHAMNOSUS GG 1 EACH CAP.SPRINK PO SCH ×2 (08:24→16:47)
[2017-12-07] MEDS: THIAMINE HCL 100 MG TABLET PO SCH (08:24)
[2017-12-07] MEDS: FOLIC ACID 1 MG TABLET PO SCH (08:24)
[2017-12-07] MEDS: Z GUARD REMEDY 2 OZ OINT TP PRN ×2 (08:25→17:06)
--- NOTE | 2017-12-07 08:59 | NUR ---
ICU/RN DUE MEDS ARE GIVEN ORDERED.
[2017-12-07] MEDS: GLUCERNA 1.2 1,000 ML BOTTLE NG PRN (09:05)
[2017-12-07] MEDS: Magnesium 1GM/D5W 100ML PREMIX 100 ML IV SCH ×4 (09:08→11:53)
[2017-12-07] MEDS ORDERED: POTASSIUM PHOSPHATE MM 15 MMOL in IV D5W 250 ML IV SCH (10:00)
[2017-12-07] MEDS ORDERED: Sodium Phosphate 30 MMOL in IV D5W 250 ML IV ONE (13:00)
[2017-12-07] MEDS: LORAZEPAM INJ 2 MG/ML VIAL IV PRN ×2 (16:36→22:30)
--- NOTE | 2017-12-07 18:00 | NUR ---
ICU/RN PT VOMIT.G-TUBE FEEDING PLACE ON HOLD.ZOFRAN IV GIVEN ORDERED.PM CARE PROVIDED.REPOSITION FOR COMFORT.
--- NOTE | 2017-12-07 19:00 | NUR ---
EMERGENCY MEDICINE PHYSICIAN NOTES Received patient orally intubated on AC mode,sedated,responds to suctioning ,with mild cough and gag,slight grimace,does not attempt to move extremities. PICC line @ JOHN on Propofol drip for sedation,patient has periods for tachypnea into the 40's,but non labored.With OGT ,feeding on hold due to episode of vomiting this AM and high feeding residual ,no 200 ml.Will continu to hold feeding for now.Comfort care done
[2017-12-07] MEDS: VANCOMYCIN 1 GM in IV D5W 250 ML IV SCH (19:57)
[2017-12-07] MEDS: CEFEPIME 1 GM in IV D5W 50 ML IV SCH (21:30)
--- NOTE | 2017-12-07 21:30 | NUR ---
FORMULA CHECKER NOTES BP low in the 70's-80's,noted patient to be very sedated.Propofol drip titrated down as tolerated. 2200 BP still low ,Levophed drip started for BP support.Patient noted to start waking up (Propofol drip @ 40 mcg/blanca),getting tachypneic with RR in the 40's.and starts desaturating in the low 80's. 2230 Still tachypneic in the 40's and desaturating in the 80's, PRN Ativan 2 mg IV given.Will monitor closely and adjust sedation as needed. 1050 Still desaturating in the 80's ,RT increase FIO2 to 60% for now and will monitor closely.
[2017-12-07] MEDS: NOREPINEPHRINE 8 MG in IV D5W 500 ML IV PRN (22:01)
[2017-12-08] VITALS (70 sets, daily range): BP systolic 73–138; BP diastolic 38–73
[2017-12-08] MEDS: BLOOD SUGAR DIAGNOSTIC 1 EACH STRIP IN SCH ×5 (00:36→23:11)
[2017-12-08] MEDS: INSULIN REGULAR, HUMAN 100 UNIT/ML 3 ML VIAL SQ PRN ×5 (00:37→23:13)
[2017-12-08] MEDS: PROPOFOL 100 ML IV PRN ×6 (00:53→22:32)
--- NOTE | 2017-12-08 02:00 | NUR ---
SALESPERSON FLOWERS NOTES sTILL ON LEVOPHED @ 2MCG/LO.bp MPORE STABLE,pROPOFOL KEPT AT 40 MCG/MIN..FIO2 TO 60 %
[2017-12-08 04:36] LABS: BASOPHILS % (AUTO) 0.1 % (0.0-2.0); EOSINOPHILS % (AUTO) 0.7 % (0.0-6.0); HEMATOCRIT 28 % (39-51); LYMPHOCYTES # (AUTO) 1.1 /CMM (0.8-4.8); LYMPHOCYTES % (AUTO) 5.6 % (20.0-44.0); MEAN CORPUSCULAR HEMOGLOBIN 32 PG (26.0-33.0); MEAN CORPUSCULAR HGB CONC 33 g/dl (31.0-36.0); MEAN CORPUSCULAR VOLUME 97 fL (80-96); MONOCYTES # (AUTO) 1.4 /CMM (0.1-1.30); MONOCYTES % (AUTO) 7.2 % (2.0-12.0); NEUTROPHILS # (AUTO) 17.3 /CMM (1.8-8.9); NEUTROPHILS % (AUTO) 86.4 % (43.0-81.0); PLATELET COUNT (AUTO) 171 /CMM (150-450); RED BLOOD CELL COUNT(AUTO) 2.87 MIL/uL (4.5-6.0); WHITE BLOOD COUNT (AUTO) 20.1 K/uL (4.3-11.0)
[2017-12-08] MEDS: CEFEPIME 1 GM in IV D5W 50 ML IV SCH ×3 (04:42→20:51)
[2017-12-08 04:43] LABS: CALCIUM, SERUM 6.9 mg/dL (8.5-10.1); CREATININE 0.8 mg/dL (0.6-1.3); MAGNESIUM 1.8 mg/dL (1.8-2.4); PHOSPHORUS 1.8 mg/dL (2.5-4.9); POTASSIUM 4.4 mmol/L (3.5-5.1)
[2017-12-08] MEDS: Potassium Chloride 40 MEQ in IV NS 0.9% 1,000 ML IV SCH ×2 (04:48→22:53)
[2017-12-08 05:13] LABS: BAND % (MANUAL) 4 % (0.0-5.0); LYMPHOCYTES % (MANUAL) 7 % (16-48); MONOCYTES % (MANUAL) 6 % (0-11.0); NEUTROPHILS % (MANUAL) 83 (42-76)
--- NOTE | 2017-12-08 07:05 | NUR ---
REPORT GIVEN TO CLARITA MOORE
--- NOTE | 2017-12-08 08:00 | NUR ---
ICU/RN PT IS INTUBATED ,ON THE VENT AC MODE,FIO2-60%.SEDATED ON DIPRIVAN .ON LEVOPHED DRIP.T-100.RIGHT UPPER PICC LINE.IV INFUSING ORDERED.OG TUBE CLAMPED.F/C DRAING WITH VASILE URINE.RIGHT BKA STUMP COVERED WITH DRESSING.SUCTION PROVIDED.REPOSITION FOR COMFORT.
[2017-12-08] MEDS: THIAMINE HCL 100 MG TABLET PO SCH (08:13)
[2017-12-08] MEDS: LACTOBACILLUS RHAMNOSUS GG 1 EACH CAP.SPRINK PO SCH ×2 (08:13→17:11)
[2017-12-08] MEDS: FOLIC ACID 1 MG TABLET PO SCH (08:13)
[2017-12-08] MEDS: VANCOMYCIN 1 GM in IV D5W 250 ML IV SCH ×2 (08:13→20:52)
[2017-12-08] MEDS: GLUCERNA 1.2 1,000 ML BOTTLE NG PRN (08:58)
[2017-12-08] MEDS ORDERED: FUROSEMIDE 20 MG/2 ML VIAL IV ONE (11:30)
[2017-12-08] MEDS ORDERED: SODIUM PHOSPHATE IV ONE (12:00)
[2017-12-08] MEDS ORDERED: D5W IV ONE (12:00)
--- NOTE | 2017-12-08 12:00 | NUR ---
ICU/RN SEDATION VACATION PROVIDED.PT IS AWAKE ,ALERT.FOLLOWS COMMAND.FAMILY AT BEDSIDE. HR INCREASED,RESPIRATIONS 45 BPM.ABG DONE ORDERED.CHEST X-RAY AND KUB DONE. PT IS BACK ON PROPOFOL.CONTINUE MONITORING.
[2017-12-08 12:09] LABS: ABG BASE EXCESS -4.2 mmol/L; ABG OXYGEN SATURATION 96.3 % (92.0-98.5); ABG PCO2 29.3 mmHg (35.0-45.0); ABG PH 7.433 (7.350-7.450); ABG PO2 89.4 mmHg (75.0-100.0); AaDO2 306.2 mmHg; COHb 0.3 % (0.5-1.5); MetHb 0.6 % (0.0-1.5); O2Hb 95.4 % (94.0-97.0); SITE, ABG Left Radial; VT, ABG 500 mL
[2017-12-08] MEDS: NOREPINEPHRINE 8 MG in IV D5W 500 ML IV PRN (18:33)
--- NOTE | 2017-12-08 20:32 | NUR ---
MEDICAL DEVICE ENGINEER, INITIAL ASSESSMENT. RECEIVED THE PT REST ON THE BED. ORALLY INTUBATED, SEDATED WITH DIPRIVAN. ETT #8,AC 16,LIP 26, TV 500,FIO2 50%. SAT 98%, MARKETING OPERATIONS ASSISTANT SHOWING NSR, IV RT UPPER ARM PICC LINE DIPRIVAN 40MCG/KG/MIN,LEVOPHED 2MCG/MIN,IVF NS 1000IN 40MEQ POTASSIUM 75ML/H. FC PATENT. OGT INTACT. RT BKA. GLUCERNA 55ML/H. HOB ELEVATED. WILL CONTINUE TO MONITOR VITALS.
[2017-12-08] MEDS: METRONIDAZOLE 500 MG TABLET PO SCH (20:52)
[2017-12-09] VITALS (74 sets, daily range): BP systolic 83–154; BP diastolic 38–89
[2017-12-09] MEDS: PROPOFOL 100 ML IV PRN ×5 (03:48→22:48)
--- NOTE | 2017-12-09 03:52 | NUR ---
MANAGER COMMERCIAL, AM CARE, ORAL CARE, BED BATH GIVEN. LINEN CHANGED. REMAINING SAME VENT SETTING TOLERATED WELL. SAT 98%, NO ACUTE DISTRESS NOTED, GRAIN ELEVATOR AGENT SHOWING NSR. IV RT UPPER ARM PICC LINE.IVF NS IN POTASSIUM 40MEQ @75ML/H. OGT FEEDING TOLERATED WELL. HOB ELEVATED, FC PATENT, URINE DRAINING. TURN AND REPOSITION Q2H, PICTURE TAKEN ATTACHED TO THE CHART.
--- NOTE | 2017-12-09 03:58 | NUR ---
RT PT RECEIVED INTUBATED ON [facility] VENT WITH NOTED SETTING. ETT PATENT AND SECURE VIA ANCHOR FAST. ALARMS SET AND AUDIBLE. STABLE HELPER DONE. VENT TO RED OUTLET. AMBU BAG AT [facility]. NO SOB OR DISTRESS NOTED. PT TOLERATING SETTING WELL. Addendum: 12/09/17 at 0400 by LUCILLE DE LA ROSA RT Amended: Links added.
[2017-12-09 04:52] LABS: BASOPHILS # (AUTO) 0.1 /CMM (0.0-0.2); BASOPHILS % (AUTO) 0.6 % (0.0-2.0); EOSINOPHILS % (AUTO) 0.6 % (0.0-6.0); HEMATOCRIT 29 % (39-51); HEMOGLOBIN 9.9 g/dL (13.5-17.5); LYMPHOCYTES # (AUTO) 1.1 /CMM (0.8-4.8); LYMPHOCYTES % (AUTO) 5.9 % (20.0-44.0); MEAN CORPUSCULAR HEMOGLOBIN 32 PG (26.0-33.0); MEAN CORPUSCULAR HGB CONC 34 g/dl (31.0-36.0); MEAN CORPUSCULAR VOLUME 94 fL (80-96); MONOCYTES # (AUTO) 1.4 /CMM (0.1-1.30); MONOCYTES % (AUTO) 7.4 % (2.0-12.0); NEUTROPHILS # (AUTO) 16.7 /CMM (1.8-8.9); NEUTROPHILS % (AUTO) 85.5 % (43.0-81.0); PLATELET COUNT (AUTO) 188 /CMM (150-450); RDW COEFFICIENT OF VARIATION 15.2 (11.5-15.0); RED BLOOD CELL COUNT(AUTO) 3.05 MIL/uL (4.5-6.0); WHITE BLOOD COUNT (AUTO) 19.4 K/uL (4.3-11.0)
[2017-12-09] MEDS: METRONIDAZOLE 500 MG TABLET PO SCH ×2 (05:00→12:05)
[2017-12-09 05:07] LABS: CALCIUM, SERUM 6.9 mg/dL (8.5-10.1); CREATININE 0.8 mg/dL (0.6-1.3); MAGNESIUM 1.5 mg/dL (1.8-2.4); PHOSPHORUS 2.2 mg/dL (2.5-4.9); POTASSIUM 4.3 mmol/L (3.5-5.1)
[2017-12-09] MEDS: CEFEPIME 1 GM in IV D5W 50 ML IV SCH ×2 (06:09→12:03)
[2017-12-09] MEDS: BLOOD SUGAR DIAGNOSTIC 1 EACH STRIP IN SCH ×3 (06:09→17:46)
[2017-12-09] MEDS: INSULIN REGULAR, HUMAN 100 UNIT/ML 3 ML VIAL SQ PRN ×3 (06:10→17:49)
--- NOTE | 2017-12-09 07:41 | NUR ---
INITIAL AUDIO VISUAL COLLECTIONS COORDINATOR NOTE RCVD PT SEDATED, INTUBATED, TOLERATING ORDERED VENT SETTINGS WELL, SR ON TELE, OG-TUBE PLACEMENT VERIFIED BY AUSCULTATION/ASPIRATION, SMALL AMOUNT OF RESIDUAL OBTAINED. CLAIRE DRAINING VASILE COLORED URINE TO GRAVITY. IV SITES C/D/I/PATENT. NO S/O INFILTRATION/PHLEBITIS OBSERVED UPON FLUSHING, IVF INFUSING. WILL CONTINUE TO MONITOR PT FOR SAFETY AND COMFORT. CALL LIGHT WITHIN REACH. BED IN LOW AND LOCKED POSITION.
[2017-12-09] MEDS: FOLIC ACID 1 MG TABLET PO SCH (08:11)
[2017-12-09] MEDS: LACTOBACILLUS RHAMNOSUS GG 1 EACH CAP.SPRINK PO SCH ×2 (08:11→17:37)
[2017-12-09] MEDS: VANCOMYCIN 1 GM in IV D5W 250 ML IV SCH ×2 (08:11→20:12)
[2017-12-09] MEDS: THIAMINE HCL 100 MG TABLET PO SCH (08:11)
[2017-12-09 09:27] LABS: BAND % (MANUAL) 1 % (0.0-5.0); LYMPHOCYTES % (MANUAL) 4 % (16-48); MONOCYTES % (MANUAL) 8 % (0-11.0); NEUTROPHILS % (MANUAL) 87 (42-76)
--- NOTE | 2017-12-09 10:13 | NUR ---
CONVEYOR BELT REPAIRER NOTE SEDATION VACATION DONE PT PRODUCING AN INCREASED AMOUNT OF THIN, YELLOWISH SECRETIONS, TACHYPNEIC, DR. MINA AWARE. REMAINING VITAL SIGNS STABLE. PT ABLE TO FOLLOW SIMPLE COMMANDS SUCH OPEN/CLOSE EYES, SQUEEZE BILATERAL HANDS AND MOVE LEFT FOOT. WILL CONTINUE TO MONITOR PT.
[2017-12-09] MEDS: Magnesium 1GM/D5W 100ML PREMIX 100 ML IV SCH ×4 (11:07→14:40)
[2017-12-09] MEDS ORDERED: Sodium Phosphate 15 MMOL in IV D5W 250 ML IV ONE (13:30)
[2017-12-09] MEDS ORDERED: ZOLPIDEM TARTRATE 5 MG TABLET GT PRN (14:14)
[2017-12-09] MEDS ORDERED: MAG HYDROX/AL HYDROX/SIMETH 30 ML UDC GT PRN (14:15)
[2017-12-09] MEDS ORDERED: MAGNESIUM HYDROXIDE 30 ML UDC GT PRN (14:15)
[2017-12-09] MEDS: Potassium Chloride 40 MEQ in IV NS 0.9% 1,000 ML IV SCH (14:46)
[2017-12-09] MEDS: HYDROCODONE/APAP 5/325MG 1 EACH TABLET PO PRN (17:41)
[2017-12-09] MEDS: GLUCERNA 1.2 1,000 ML BOTTLE NG PRN (17:42)
[2017-12-09] MEDS: Z GUARD REMEDY 2 OZ OINT TP PRN (18:07)
--- NOTE | 2017-12-09 18:39 | NUR ---
RT NOTE (X3 DAYS CONTINUES CARE) AM SHIFT: PT. 67 Y OLD MALE REMAIN NONE RESPONSIVE. DURING SEDATION VACATION PT. RESPONSE, BUT WORK OF BREATHING INCREASED PREVIOUS ABG AND NO CHANGES PER MD ORDER ORALLY INTUBATED ETT # 8.0 @ 26 CM LIPLINE. REMAIN ON VENT WITH NOTED SETTINGS. NO RESPIRATORY DISTRESS NOTED. B/S BILATERALLY RHONCHI SUX'D FOR MOD. AMT WHITE SECRETIONS. EQUAL CHEST RISE NOTED. ALARMS ARE SET AND FUNCTIONAL. HME'S CHANGED T/O SHIFT AMBU BAG REMAIN AT THE BEDSIDE. VENT PLUGGED INTO RED OUTLET. PT. REMAIN STABLE AND CONTINUE FOR CARE AND REPORT WAS/WILL BE GIVEN TO PM SHIFT. CONTINUE FOR MONITORING. Addendum: 12/09/17 at 1845 by QUINN GARCIA RT Amended: Links added.
--- NOTE | 2017-12-09 18:47 | NUR ---
RATE REVIEWER NOTE PT REMAINS INTUBATED, SEDATED, TACHYPNEIC DESPITE INCREASING DIPRIVAN AND GIVING NORCO FOR PAIN, IV SITES C/D/I/PATENT. NO S/O INFILTRATION/PHLEBITIS OBSERVED, IVF INFUSING. CLAIRE TO GRAVITY DRAINING VASILE COLORED URINE. OG-TUBE CLAMPED DUE TO RESIDUAL OF 170ML. PT'S CARE ENDORSED TO FOUR HORSE HITCH DRIVER RN FOR CONTINUITY OF CARE. BED IN LOW AND LOCKED POSITION. PT'S SON, PASCUAL UPDATED ON PT'S CONDITION WHEN HE CAME TO VISIT EARLIER IN THE DAY.
--- NOTE | 2017-12-09 19:54 | NUR ---
CARD GAME OPERATOR. INITIAL ASSESSMENT. RECEIVED THE PT REST ON THE BED. ORALLY INTUBATED, SEDATED WITH DIPRIVAN 40MCG/KG/MIN. ETT#8,LIP 26,AC 16,TV 500,FIO2 50%. SAT 97%, BOILER TUBE BLOWER SHOWING NSR, PT IS TACHYPNEIC . IV RT UPPER ARM PICC LINE IVF NS IN 40 MEQ POTASSIUM 75ML/H, OGT FEEDING GLUCERNA 55ML/H.. FC PATENT. HOB ELEVATED, WILL CONTINUE TO MONITOR VITALS.
[2017-12-09] MEDS: METRONIDAZOLE 500 MG TABLET GT SCH (20:12)
[2017-12-09] MEDS: MEROPENEM 1 G in IV NS 0.9% 100 ML IV SCH (20:12)
[2017-12-09] MEDS ORDERED: MEROPENEM 500 MG in IV NS 0.9% 50 ML IV SCH (21:00)
[2017-12-10] VITALS (56 sets, daily range): BP systolic 84–150; BP diastolic 43–76
[2017-12-10] MEDS: BLOOD SUGAR DIAGNOSTIC 1 EACH STRIP IN SCH ×4 (01:17→17:41)
[2017-12-10] MEDS: Potassium Chloride 40 MEQ in IV NS 0.9% 1,000 ML IV SCH ×2 (01:18→12:51)
[2017-12-10] MEDS: PROPOFOL 100 ML IV PRN ×5 (01:28→21:50)
[2017-12-10 04:21] LABS: BASOPHILS % (AUTO) 0.2 % (0.0-2.0); EOSINOPHILS % (AUTO) 0.7 % (0.0-6.0); HEMATOCRIT 27 % (39-51); HEMOGLOBIN 8.9 g/dL (13.5-17.5); LYMPHOCYTES # (AUTO) 1.1 /CMM (0.8-4.8); LYMPHOCYTES % (AUTO) 7.6 % (20.0-44.0); MEAN CORPUSCULAR HEMOGLOBIN 32 PG (26.0-33.0); MEAN CORPUSCULAR HGB CONC 33 g/dl (31.0-36.0); MEAN CORPUSCULAR VOLUME 96 fL (80-96); MONOCYTES # (AUTO) 1.3 /CMM (0.1-1.30); MONOCYTES % (AUTO) 8.7 % (2.0-12.0); NEUTROPHILS # (AUTO) 12.5 /CMM (1.8-8.9); NEUTROPHILS % (AUTO) 82.8 % (43.0-81.0); PLATELET COUNT (AUTO) 163 /CMM (150-450); WHITE BLOOD COUNT (AUTO) 15.1 K/uL (4.3-11.0)
[2017-12-10 04:30] LABS: CALCIUM, SERUM 6.9 mg/dL (8.5-10.1); CREATININE 0.7 mg/dL (0.6-1.3); POTASSIUM 4.5 mmol/L (3.5-5.1)
[2017-12-10] MEDS: METRONIDAZOLE 500 MG TABLET GT SCH ×3 (05:16→21:30)
[2017-12-10] MEDS: MEROPENEM 1 G in IV NS 0.9% 100 ML IV SCH ×3 (05:17→21:32)
--- NOTE | 2017-12-10 05:58 | NUR ---
agricultural economics professor. am care. oral care, bed bath given. linen changed, remaining same vent setting tolerated well. sat 97%. aquaculture farmer showing nsr. iv rt upper arm picc line ivf ns in 40 meq potassium #75ml/h. hob elevated. gt feeding tolerated well. fc patent, urine draining. hob elevated. turn and reposition q2h. will continue to monitor vitals.
[2017-12-10 07:47] LABS: MAGNESIUM 2.2 mg/dL (1.8-2.4); PHOSPHORUS 2.3 mg/dL (2.5-4.9)
--- NOTE | 2017-12-10 07:51 | NUR ---
INITIAL GROUND CREW LINES PERSON NOTE RCVD PT SEDATED, INTUBATED TOLERATING ORDERED VENT SETTINGS WELL. OG-TUBE PLACEMENT VERIFIED BY AUSCULTATION/ASPIRATION, ABOUT 10 ML RESIDUAL OBTAINED. CLAIRE TO GRAVITY DRAINING VASILE COLORED URINE. IV SITES C/D/I/PATENT. NO S/O INFILTRATION/PHLEBITIS OBSERVED, IVF INFUSING. WILL CONTINUE TO MONITOR PT FOR SAFETY AND COMFORT. BED IN LOW AND LOCKED POSITION.
[2017-12-10] MEDS: FOLIC ACID 1 MG TABLET PO SCH (08:41)
[2017-12-10] MEDS: LACTOBACILLUS RHAMNOSUS GG 1 EACH CAP.SPRINK PO SCH ×2 (08:41→17:41)
[2017-12-10] MEDS: THIAMINE HCL 100 MG TABLET GT SCH (08:41)
[2017-12-10] MEDS: VANCOMYCIN 1 GM in IV D5W 250 ML IV SCH ×2 (08:41→21:32)
[2017-12-10] MEDS: HYDROCODONE/APAP 5/325MG 1 EACH TABLET PO PRN (08:42)
--- NOTE | 2017-12-10 09:21 | NUR ---
BRANCH SALES MANAGER NOTE SEDATION VACATION DONE. PT ABLE TO FOLLOW COMMANDS SUCH OPEN/CLOSE EYES, MAKE A FIST WITH BILATERAL HANDS AND MOVE LEFT FOOT AND RIGHT STUMP. PT WAS ORIENTED TO PLACE, SITUATION AND TIME AND INFORMED ABOUT THE PLAN OF CARE. POSSIBLE WEANING IN AM TOMORROW PER DR. MINA. NO ABG'S TODAY.
[2017-12-10] MEDS ORDERED: PANTOPRAZOLE 40 MG VIAL IV SCH (10:00)
--- NOTE | 2017-12-10 10:14 | NUR ---
ENGINEERING ADMINISTRATOR NOTE PT'S SON, PASCUAL CALLED, HE WAS UPDATED OVER THE PHONE REGARDING PT'S CONDITION.
[2017-12-10] MEDS: PANTOPRAZOLE 40 MG VIAL IV SCH ×2 (11:31→21:30)
[2017-12-10] MEDS: ENOXAPARIN SODIUM 40 MG/0.4 ML DISP.SYRIN SQ SCH (11:35)
[2017-12-10] MEDS: PROSOURCE / PROSTAT (PYXIS) 30 ML UDC GT SCH (11:35)
[2017-12-10] MEDS: INSULIN REGULAR, HUMAN 100 UNIT/ML 3 ML VIAL SQ PRN ×2 (11:42→17:44)
--- NOTE | 2017-12-10 15:34 | NUR ---
SUCTION DREDGE DUMPING SUPERVISOR NOTE DR. VELÁZQUEZ UPDATED ON PT'S CONDITION INCLUDING PHOS 2.3 AND CA 6.9 SINCE YESTERDAY. NO NEW ORDERS RCVD WILL CONTINUE TO MONITOR.
--- NOTE | 2017-12-10 18:54 | NUR ---
PILOT CAN ROUTER NOTE PT LIGHTLY SEDATED, INTUBATED, WITH COPIOUS THIN SECRETIONS, TOLERATING ORDERED VENT SETTINGS WELL. OG-TUBE CLAMPED DUE TO HIGH RESIDUAL. CLAIRE TO GRAVITY DRAINING VASILE COLORED URINE. IV SITES C/D/I/PATENT. IVF INFUSING NO S/O INFILTRATION/PHLEBITIS OBSERVED. PT'S CARE ENDORSED TO INVESTMENT SPECIALIST RN FOR CONTINUITY OF CARE. BED IN LOW AND LOCKED POSITION. PT'S SON, PASCUAL CALLED IN PM UPDATED ON PT'S CONDITION. CHAYITO GHOTRA FOR ID INFORMED OF PT'S LOOSE STOOL AND WOULD LIKE TO COLLECT STOOL FOR C.DIFF. THIS WAS ENDORSED TO INVESTMENT SPECIALIST RN.
--- NOTE | 2017-12-10 19:40 | NUR ---
HVAC COMMERCIAL SALESPERSON. INITIAL ASSESSMENT. RECEIVED THE PT REST ON THE BED, ORALLY INTUBATED. SEDATED WITH DIPRIVAN. ETT #8, LIP 26,AC 16, TV 500, FIO2 50%SAT 96%, PT IS TACHYPNEIC,RT UPPER ARM PICC LINE IVF NS IN 40MEQ POTASSIUM @75ML/H, DIPRIVAN 30MCG/KG/MIN.HOB ELEVATED. OGT FEEDING GLUCERNA 55ML/HWILL CONTINUE TO MONITOR VITALS.
[2017-12-10] MEDS ORDERED: NEUTRA PHOS 1 POWD.PACKET GT ONE (21:00)
[2017-12-10] MEDS ORDERED: PROPOFOL 100 ML ONE (21:49)
--- NOTE | 2017-12-10 22:58 | NUR ---
PT RECEIVED INTUBATED 8.0 ETT SECURED AT 26CM AT THE LIP. NO RESP DISTRESS. PT TOLERATING VENT SETTINGS. SX'D FOR MOD AMT OF THICK YELLOW SECRETIONS. VENT ALARMS SET AND AUDIBLE. AMBU BAG AT BEDSIDE. ETT SECURED, CUFF JIG AND FIXTURE MAKER. VENT PLUGGED INTO RED OUTLET. WILL CONTINUE TO MONITOR. Addendum: 12/10/17 at 6158 by DIONNE ROSS RT Amended: Links added.
[2017-12-11] VITALS (49 sets, daily range): BP systolic 83–145; BP diastolic 45–73
[2017-12-11] MEDS ORDERED: PROPOFOL 100 ML ONE ×2 (00:03→02:55)
[2017-12-11] MEDS: BLOOD SUGAR DIAGNOSTIC 1 EACH STRIP IN SCH ×5 (00:04→23:10)
[2017-12-11] MEDS: INSULIN REGULAR, HUMAN 100 UNIT/ML 3 ML VIAL SQ PRN ×3 (00:05→23:11)
[2017-12-11] MEDS: PROPOFOL 100 ML IV PRN ×7 (00:33→23:57)
[2017-12-11] MEDS: Potassium Chloride 40 MEQ in IV NS 0.9% 1,000 ML IV SCH ×2 (03:59→16:47)
[2017-12-11 04:47] LABS: BASOPHILS % (AUTO) 0.1 % (0.0-2.0); EOSINOPHILS % (AUTO) 1.2 % (0.0-6.0); HEMATOCRIT 25 % (39-51); HEMOGLOBIN 8.2 g/dL (13.5-17.5); LYMPHOCYTES % (AUTO) 9.3 % (20.0-44.0); MEAN CORPUSCULAR HEMOGLOBIN 32 PG (26.0-33.0); MEAN CORPUSCULAR HGB CONC 33 g/dl (31.0-36.0); MEAN CORPUSCULAR VOLUME 96 fL (80-96); MONOCYTES # (AUTO) 1.1 /CMM (0.1-1.30); MONOCYTES % (AUTO) 9.8 % (2.0-12.0); NEUTROPHILS # (AUTO) 8.6 /CMM (1.8-8.9); NEUTROPHILS % (AUTO) 79.6 % (43.0-81.0); PLATELET COUNT (AUTO) 153 /CMM (150-450); RDW COEFFICIENT OF VARIATION 16.5 (11.5-15.0); RED BLOOD CELL COUNT(AUTO) 2.59 MIL/uL (4.5-6.0); WHITE BLOOD COUNT (AUTO) 10.8 K/uL (4.3-11.0)
[2017-12-11 04:57] LABS: CALCIUM, SERUM 7.2 mg/dL (8.5-10.1); CREATININE 0.8 mg/dL (0.6-1.3); MAGNESIUM 1.8 mg/dL (1.8-2.4); PHOSPHORUS 2.3 mg/dL (2.5-4.9); POTASSIUM 4.5 mmol/L (3.5-5.1)
[2017-12-11] MEDS: METRONIDAZOLE 500 MG TABLET GT SCH ×3 (05:10→20:30)
[2017-12-11] MEDS: MEROPENEM 1 G in IV NS 0.9% 100 ML IV SCH ×3 (05:10→21:36)
[2017-12-11] MEDS: GLUCERNA 1.2 1,000 ML BOTTLE NG PRN (05:12)
--- NOTE | 2017-12-11 06:55 | NUR ---
COMPUTER AIDED DRAFTER. AM CARE, ORAL CARE, BED BATH GIVEN. LINEN CHANGED, REMAINING SAME VENT SETTING TOLERATED WELL. SAT 98%.AIR BATTLE MANAGER SHOWING NSR. IV RT UPPERA RM PICC LINE IVF NS IN 40MEQ POTASSIUM @75ML/H, DIPRIVAN 40MCG/KG/MIN, OGT FEEDING TOLERATED WELL. FC PATENT, URINE DRAINING. AFEBRILE. TURN AND REPOSITION Q2H. WILL CONTINUE TO MONITOR VITALS.
[2017-12-11] MEDS: VANCOMYCIN 1 GM in IV D5W 250 ML IV SCH ×2 (07:45→20:29)
--- NOTE | 2017-12-11 08:00 | NUR ---
ICU/RN: INITIAL NOTES,AM RECEIVED REPORT FROM NIGHT NURSE. PT SEDATED INTUBATED WITH VENT SETTINGS ORDERED BY MD. NO ACUTE DISTRESS NOTED. ETT 8.0, 26CM AT THE LIP, LARGE SECRETIONS NOTED. PT ON TELE, SINUS ON TELE. OG IN PLACE, PLACEMENT VERIFIED, TUBE FEEDING INFUSING ORDERED, TOLERATING, SOME RESIDUAL NOTED. ALL NEEDS WILL BE ATTENDED TO, SAFETY MEASURES TAKEN, BED IN LOW POSITION, SIDE RAILS UP, CALL LIGHT WITHIN REACH. WILL CONTINUE TO CARE. PT TURNED AND REPOSITIONED.
[2017-12-11] MEDS: THIAMINE HCL 100 MG TABLET GT SCH (08:16)
[2017-12-11] MEDS: LACTOBACILLUS RHAMNOSUS GG 1 EACH CAP.SPRINK PO SCH ×2 (08:16→16:46)
[2017-12-11] MEDS: FOLIC ACID 1 MG TABLET PO SCH (08:16)
[2017-12-11] MEDS: ENOXAPARIN SODIUM 40 MG/0.4 ML DISP.SYRIN SQ SCH (08:17)
[2017-12-11] MEDS: PROSOURCE / PROSTAT (PYXIS) 30 ML UDC GT SCH (08:17)
--- NOTE | 2017-12-11 08:25 | NUR ---
ICU/RN: SEDATION VACATION DIPRIVAN DECREASED TO 20MCG/KG/MIN FOR SEDATION VACATION. PT OPENS EYES, FOLLOWS COMMANDS.
--- NOTE | 2017-12-11 09:00 | NUR ---
ICU/RN: ROUNDS PT ASSESSED BY . NO ORDERS TO WEAN THIS AM, PT WILL BE WEANED TOMORROW MORNING. LOT OF SECRETIONS NOTED, FREQUENT SUCTIONING NEEDED. WILL CONTINUE TO MONITOR AND ASSESS
[2017-12-11] MEDS: PANTOPRAZOLE 40 MG VIAL IV SCH ×2 (09:34→21:40)
[2017-12-11] MEDS ORDERED: NEUTRA PHOS 1 POWD.PACKET GT ONE (11:00)
--- NOTE | 2017-12-11 18:47 | NUR ---
ICU/RN ENDING NOTES,AM REPORT WILL BE ENDORSED TO NIGHT NURSE FOR CONTINUATION OF CARE, ALL NEEDS MET, PT ON VENT SETTINGS ORDERED BY MD, NO ACUTE DISTRESS NOTED. TUBE FEEDING INFUSING, TOLERATING AT THIS TIME. PT TURNED AND REPOSITIONED, LINENS CHANGED, SAFETY MEASURES TAKEN, BED IN LOW POSITION, SIDE RAILS UP, CALL LIGHT WITHIN REACH.
--- NOTE | 2017-12-11 19:30 | NUR ---
MD ALLERGY IMMUNOLOGY: RECEIVED ORALLY INTUBATED PT, SEDATED ON DIPRIVAN AT 40MCG/KG/MIN. OPENS EYE WT PAIN STIMULI. VENT SETTINGS ORDERED WT NO ACUTE DISTRESS, NO EVIDENCE OF DISCOMFORT. SR ON ER MANAGER. TEMP. 99.5 F (ORAL), COOLING MEASURES INITIATED. OGT IN PLACE AND VERIFIED PLACEMENT WT GLUCERNA RUNNING AT 55ML/HR. NOTED 60CC RESIDUAL. F/C PATENT AND INTACT DRAINING VASILE COLORED URINE TO GRAVITY. JOHN PICC LINE ALSO INFUSING NS WT 40MEQ KCL AT 75ML/HR. NO S/S OF IV SITES COMPLICATIONS. HOB AT 45 DEGREES. SAFETY AND ASPIRATION PRECAUTIONS NOTED. WILL CONTINUE TO MONITOR.
--- NOTE | 2017-12-11 20:51 | NUR ---
PT RECEIVED INTUBATED 8.0 ETT SECURED AT 26CM AT THE LIP. NO RESP DISTRESS. PT TOLERATING VENT SETTINGS. SX'D FOR MOD AMT OF FROTHY WHITE SECRETIONS. VENT ALARMS SET AND AUDIBLE. AMBU BAG AT BEDSIDE. ETT SECURED, CUFF DATA CENTER CONSULTANT. VENT PLUGGED INTO RED OUTLET. WILL CONTINUE TO MONITOR. Addendum: 12/11/17 at 2051 by DIONNE ROSS RT Amended: Links added.
--- NOTE | 2017-12-11 21:00 | NUR ---
ACADEMIC SUPPORT SPECIALIST: COOLING MEASURES WT GOOD EFFECT TEMP NOW AT 98.7 (ORAL). WILL CONTINUE TO MONITOR.
[2017-12-12] VITALS (48 sets, daily range): BP systolic 89–144; BP diastolic 44–82
[2017-12-12] MEDS: PROPOFOL 100 ML IV PRN ×5 (04:32→23:56)
[2017-12-12 04:40] LABS: BASOPHILS % (AUTO) 0.1 % (0.0-2.0); EOSINOPHILS % (AUTO) 1.1 % (0.0-6.0); HEMATOCRIT 27 % (39-51); HEMOGLOBIN 8.9 g/dL (13.5-17.5); LYMPHOCYTES # (AUTO) 0.9 /CMM (0.8-4.8); LYMPHOCYTES % (AUTO) 8.8 % (20.0-44.0); MEAN CORPUSCULAR HEMOGLOBIN 32 PG (26.0-33.0); MEAN CORPUSCULAR HGB CONC 33 g/dl (31.0-36.0); MEAN CORPUSCULAR VOLUME 96 fL (80-96); MONOCYTES # (AUTO) 0.8 /CMM (0.1-1.30); MONOCYTES % (AUTO) 7.6 % (2.0-12.0); NEUTROPHILS # (AUTO) 8.1 /CMM (1.8-8.9); NEUTROPHILS % (AUTO) 82.4 % (43.0-81.0); PLATELET COUNT (AUTO) 164 /CMM (150-450); RDW COEFFICIENT OF VARIATION 16.4 (11.5-15.0); RED BLOOD CELL COUNT(AUTO) 2.78 MIL/uL (4.5-6.0); WHITE BLOOD COUNT (AUTO) 9.9 K/uL (4.3-11.0)
[2017-12-12 04:42] LABS: CALCIUM, SERUM 7.1 mg/dL (8.5-10.1); CREATININE 0.8 mg/dL (0.6-1.3); MAGNESIUM 1.5 mg/dL (1.8-2.4); PHOSPHORUS 1.9 mg/dL (2.5-4.9); POTASSIUM 4.5 mmol/L (3.5-5.1)
[2017-12-12] MEDS: MEROPENEM 1 G in IV NS 0.9% 100 ML IV SCH ×3 (05:23→21:05)
[2017-12-12] MEDS: METRONIDAZOLE 500 MG TABLET GT SCH ×3 (05:24→21:05)
[2017-12-12] MEDS: GLUCERNA 1.2 1,000 ML BOTTLE NG PRN (05:24)
[2017-12-12] MEDS: BLOOD SUGAR DIAGNOSTIC 1 EACH STRIP IN SCH ×3 (05:45→17:50)
[2017-12-12] MEDS: INSULIN REGULAR, HUMAN 100 UNIT/ML 3 ML VIAL SQ PRN ×3 (05:46→17:55)
[2017-12-12] MEDS ORDERED: Potassium Chloride 40 MEQ in IV NS 0.9% 1,000 ML IV PRN (06:00)
--- NOTE | 2017-12-12 06:00 | NUR ---
DATA ENGINEER: STOOL SPECIMEN FOR C. DIFF COLLECTED. NO SIGNIFICANT JUAN DURING THE SHIFT. REMAINED SEDATED ON DIPRIVAN AT 40MCG/KG/MN. VS WITHIN PT's BASELINE.
--- NOTE | 2017-12-12 07:51 | NUR ---
ICU/RN: INITIAL NOTES,AM RECEIVED REPORT FROM NIGHT NURSE. PT SEDATED INTUBATED WITH VENT SETTINGS ORDERED BY MD, ORDERS FOR WEANING THIS AM. NO ACUTE DISTRESS NOTED. ETT 8.0, 26CM AT THE LIP, LARGE SECRETIONS NOTED. PT ON TELE, SINUS ON TELE. OG IN PLACE, PLACEMENT VERIFIED, TUBE FEEDING INFUSING ORDERED, TOLERATING, SOME RESIDUAL NOTED. ALL NEEDS WILL BE ATTENDED TO, SAFETY MEASURES TAKEN, BED IN LOW POSITION, SIDE RAILS UP, CALL LIGHT WITHIN REACH. WILL CONTINUE TO CARE. PT TURNED AND REPOSITIONED.
[2017-12-12] MEDS: LACTOBACILLUS RHAMNOSUS GG 1 EACH CAP.SPRINK PO SCH ×2 (08:34→17:50)
[2017-12-12] MEDS: VANCOMYCIN 1 GM in IV D5W 250 ML IV SCH ×2 (08:34→20:40)
[2017-12-12] MEDS: ENOXAPARIN SODIUM 40 MG/0.4 ML DISP.SYRIN SQ SCH (08:35)
[2017-12-12] MEDS: FOLIC ACID 1 MG TABLET PO SCH (08:35)
[2017-12-12] MEDS: PROSOURCE / PROSTAT (PYXIS) 30 ML UDC GT SCH (08:35)
[2017-12-12] MEDS: THIAMINE HCL 100 MG TABLET GT SCH (08:35)
[2017-12-12] MEDS: PANTOPRAZOLE 40 MG VIAL IV SCH ×2 (09:08→21:05)
[2017-12-12] MEDS ORDERED: NEUTRA PHOS 1 POWD.PACKET PO ONE (09:30)
--- NOTE | 2017-12-12 09:30 | NUR ---
ICU/RN: SEDATION VACATION/WEANING PT TITRATED OFF SEDATION IN PREPARATION FOR WEANING TRIAL. PT OPENS EYES FOLLOWS COMMANDS HOWEVER, BECAME VERY TACHYPNEIC, DISTRESSED ON CURRENT AC VENT MODE. AT BEDSIDE, ASSESSED PT AND DISCONTINUED WEANING ORDERS AT THIS TIME. WILL CONTINUE ON CURRENT VENT SETTINGS ORDERED. SEDATION WILL BE RESUMED FOR COMFORT PER PROTOCOL.
[2017-12-12] MEDS: Magnesium 1GM/D5W 100ML PREMIX 100 ML IV SCH ×2 (09:37→11:12)
[2017-12-12] MEDS ORDERED: FUROSEMIDE 100 MG/10 ML VIAL IV ONE (13:30)
--- NOTE | 2017-12-12 17:41 | NUR ---
Received intubated pt on mechanical vent. Dr Brasher was at bedside and discontinued weaning orders due to increase WOB. Vent is plugged into a red outlet, alarms are set and audible and BMV is at bedside. Addendum: 12/12/17 at 1744 by YURI BRICE RT Amended: Links added.
--- NOTE | 2017-12-12 19:12 | NUR ---
ICU/RN ENDING NOTES,AM REPORT ENDORSED TO NIGHT NURSE FOR CONTINUATION OF CARE, ALL NEEDS MET, PT ON VENT SETTINGS ORDERED BY MD, NO ACUTE DISTRESS NOTED. TUBE FEEDING INFUSING, TOLERATING AT THIS TIME. PT TURNED AND REPOSITIONED, LINENS CHANGED, SAFETY MEASURES TAKEN, BED IN LOW POSITION, SIDE RAILS UP, CALL LIGHT WITHIN REACH.
--- NOTE | 2017-12-12 20:00 | NUR ---
agricultural aircraft pilot notes received pts in bed awake and responsive, with ett#8/26 intact and secured, vent settings of ac 16 tv 500 fio2 50% pep-0 ,on tele sr on the monitor, no sob no distress noted , hob elevated for aspiration precaution ,v/s stable afebrile. on diprivan at 40mcg infusing well ,piccline on on yvette intact and patent. on ogt feeding of glucerna 1.2 at 55cc/hr well tolerated no residual noted .suction secretion done q 2hrs and prn , due meds given as ordered. turned and repositioned, on f/c intact and patent draining with yellowish urine output.will continue to monitor pts.
[2017-12-13] VITALS (47 sets, daily range): BP systolic 85–141; BP diastolic 47–90
--- NOTE | 2017-12-13 | NUR ---
LICENSED ELECTRICIAN NOTES BLOOD SUGAR AT 12MN IS 150MG/DL 2 UNITS OF REGULAR INSULIN GIVEN PER SLIDING SCALE. PTS TURNED AND REPOSITION,
[2017-12-13] MEDS: INSULIN REGULAR, HUMAN 100 UNIT/ML 3 ML VIAL SQ PRN ×3 (00:16→12:16)
[2017-12-13] MEDS: BLOOD SUGAR DIAGNOSTIC 1 EACH STRIP IN SCH ×4 (00:16→17:38)
[2017-12-13] MEDS: GLUCERNA 1.2 1,000 ML BOTTLE NG PRN (01:06)
[2017-12-13] MEDS: PROPOFOL 100 ML IV PRN ×4 (03:04→18:27)
--- NOTE | 2017-12-13 03:26 | NUR ---
RT Pt orally intubated remains on [facility] vent on ordered settings. ETT secure and patent. no changes or weaning during the night. Addendum: 12/13/17 at 0328 by LETY ROSS RT Amended: Links added.
[2017-12-13] MEDS: METRONIDAZOLE 500 MG TABLET GT SCH ×3 (04:58→21:01)
[2017-12-13] MEDS: MEROPENEM 1 G in IV NS 0.9% 100 ML IV SCH ×3 (04:59→21:01)
[2017-12-13 05:47] LABS: BASOPHILS % (AUTO) 0.3 % (0.0-2.0); EOSINOPHILS % (AUTO) 1.9 % (0.0-6.0); HEMATOCRIT 26 % (39-51); HEMOGLOBIN 8.7 g/dL (13.5-17.5); LYMPHOCYTES # (AUTO) 0.9 /CMM (0.8-4.8); LYMPHOCYTES % (AUTO) 11.1 % (20.0-44.0); MEAN CORPUSCULAR HEMOGLOBIN 32 PG (26.0-33.0); MEAN CORPUSCULAR HGB CONC 33 g/dl (31.0-36.0); MEAN CORPUSCULAR VOLUME 95 fL (80-96); MONOCYTES # (AUTO) 0.7 /CMM (0.1-1.30); MONOCYTES % (AUTO) 8.6 % (2.0-12.0); NEUTROPHILS # (AUTO) 6.1 /CMM (1.8-8.9); NEUTROPHILS % (AUTO) 78.1 % (43.0-81.0); PLATELET COUNT (AUTO) 147 /CMM (150-450); RDW COEFFICIENT OF VARIATION 16.6 (11.5-15.0); RED BLOOD CELL COUNT(AUTO) 2.76 MIL/uL (4.5-6.0); WHITE BLOOD COUNT (AUTO) 7.8 K/uL (4.3-11.0)
[2017-12-13 06:13] LABS: CALCIUM, SERUM 7.7 mg/dL (8.5-10.1); CREATININE 0.8 mg/dL (0.6-1.3); MAGNESIUM 1.7 mg/dL (1.8-2.4); PHOSPHORUS 2.6 mg/dL (2.5-4.9); POTASSIUM 4.1 mmol/L (3.5-5.1)
--- NOTE | 2017-12-13 06:56 | NUR ---
WOOL CARDER NOTES BLOOD SUGAR FOR 6AM IS 142 MG/DL 2 UNITS OF REGULAR INSULIN GIVEN PER SLIDING SCALE , PTS REMAINS ON DIPRIVAN AT 40MCG /HR INFUSING WELL , REMAINS ON ETT AC SETTING WELL TOLERATED, WILL ENDORSE TO RN DAY SHIFT FOR CONTINUITY OF CARE.
--- NOTE | 2017-12-13 07:24 | NUR ---
ICU/RN: INITIAL NOTES,AM RECEIVED REPORT FROM NIGHT NURSE. PT SEDATED INTUBATED WITH VENT SETTINGS ORDERED BY MD, NO ACUTE DISTRESS NOTED. ETT 8.0, 26CM AT THE LIP, LARGE SECRETIONS NOTED. PT ON TELE, SINUS ON TELE. OG IN PLACE, PLACEMENT VERIFIED, TUBE FEEDING INFUSING ORDERED, TOLERATING. ALL NEEDS WILL BE ATTENDED TO, SAFETY MEASURES TAKEN, BED IN LOW POSITION, SIDE RAILS UP, CALL LIGHT WITHIN REACH. WILL CONTINUE TO CARE. PT TURNED AND REPOSITIONED.
--- NOTE | 2017-12-13 08:30 | NUR ---
ICU/RN: SEDATION VACATION STOPPED, PT DID NOT TOLERATE, ELEVATED RR RATE, RESP. DISTRESS. PER DR. MINA WE ARE TO RESUME SEDATION. WILL CONTINUE TO MONITOR AND ASSESS
[2017-12-13] MEDS: VANCOMYCIN 1 GM in IV D5W 250 ML IV SCH ×2 (09:02→20:00)
[2017-12-13] MEDS: PROSOURCE / PROSTAT (PYXIS) 30 ML UDC GT SCH (09:02)
[2017-12-13] MEDS: ENOXAPARIN SODIUM 40 MG/0.4 ML DISP.SYRIN SQ SCH (09:03)
[2017-12-13] MEDS: THIAMINE HCL 100 MG TABLET GT SCH (09:03)
[2017-12-13] MEDS: FOLIC ACID 1 MG TABLET PO SCH (09:03)
[2017-12-13] MEDS: LACTOBACILLUS RHAMNOSUS GG 1 EACH CAP.SPRINK PO SCH ×2 (09:03→17:37)
[2017-12-13] MEDS: PANTOPRAZOLE 40 MG VIAL IV SCH ×2 (09:08→22:02)
[2017-12-13] MEDS: Magnesium 1GM/D5W 100ML PREMIX 100 ML IV SCH ×2 (10:19→11:36)
[2017-12-13] MEDS: FUROSEMIDE 40 MG/4 ML VIAL IV SCH ×3 (10:19→17:40)
--- NOTE | 2017-12-13 16:00 | NUR ---
ICU/RN: STOOL SAMPLE SEND FOR C.DIFF. FORME FILLED OUT AND SENT WITH SAMPLE. ISOLATION OBSERVED TILL RESULTS COME BACK
--- NOTE | 2017-12-13 18:46 | NUR ---
ICU/RN ENDING NOTES,AM REPORT WILL BE ENDORSED TO NIGHT NURSE FOR CONTINUATION OF CARE, ALL NEEDS MET, PT ON VENT SETTINGS ORDERED BY MD, NO ACUTE DISTRESS NOTED. TUBE FEEDING INFUSING, TOLERATING AT THIS TIME. PT TURNED AND REPOSITIONED, LINENS CHANGED, SAFETY MEASURES TAKEN, BED IN LOW POSITION, SIDE RAILS UP, CALL LIGHT WITHIN REACH. WEANING ORDERS FOR TOMORROW MORNING.
--- NOTE | 2017-12-13 19:30 | NUR ---
Received patient intubated to ac mode with prescribed settings.Patient opening eyes tachypneic RR 32-35.Diprivan drip titrated up to sedation.SR 80's no ectopy noted.Normotensive.Patient with OGT in place.Placement verified and patent.OGT feeding in progress with scant residual. Abdomen soft BS active.HOB elevated.With moderate urine per FC.Patient turned and repositioned.Secretions suctioned.Continue monitoring.
--- NOTE | 2017-12-13 20:00 | NUR ---
Vancomycin not administered.Vancomycin trough level 26.
[2017-12-14] VITALS (43 sets, daily range): BP systolic 86–159; BP diastolic 51–95
[2017-12-14] MEDS: BLOOD SUGAR DIAGNOSTIC 1 EACH STRIP IN SCH ×5 (00:02→23:58)
[2017-12-14] MEDS: INSULIN REGULAR, HUMAN 100 UNIT/ML 3 ML VIAL SQ PRN ×4 (00:04→23:59)
[2017-12-14] MEDS: PROPOFOL 100 ML IV PRN ×2 (00:05→04:38)
[2017-12-14] MEDS: ACETAMINOPHEN 650 MG/20.3 ML UDC GT PRN (00:58)
--- NOTE | 2017-12-14 01:00 | NUR ---
Patient temp 100.8.Bed bath rendered.Complete linens changed.Turned and repositioned.Tylenol administered.Continue monitoring.
[2017-12-14] MEDS: MEROPENEM 1 G in IV NS 0.9% 100 ML IV SCH ×3 (05:00→21:00)
[2017-12-14] MEDS: METRONIDAZOLE 500 MG TABLET GT SCH ×3 (05:00→21:00)
[2017-12-14 05:49] LABS: BASOPHILS % (AUTO) 0.1 % (0.0-2.0); EOSINOPHILS % (AUTO) 1.4 % (0.0-6.0); HEMATOCRIT 28 % (39-51); HEMOGLOBIN 9.2 g/dL (13.5-17.5); LYMPHOCYTES # (AUTO) 0.9 /CMM (0.8-4.8); LYMPHOCYTES % (AUTO) 12.9 % (20.0-44.0); MEAN CORPUSCULAR HEMOGLOBIN 31 PG (26.0-33.0); MEAN CORPUSCULAR HGB CONC 33 g/dl (31.0-36.0); MEAN CORPUSCULAR VOLUME 95 fL (80-96); MONOCYTES # (AUTO) 0.7 /CMM (0.1-1.30); MONOCYTES % (AUTO) 10.2 % (2.0-12.0); NEUTROPHILS # (AUTO) 5.4 /CMM (1.8-8.9); NEUTROPHILS % (AUTO) 75.4 % (43.0-81.0); PLATELET COUNT (AUTO) 190 /CMM (150-450); RDW COEFFICIENT OF VARIATION 16.5 (11.5-15.0); RED BLOOD CELL COUNT(AUTO) 2.93 MIL/uL (4.5-6.0); WHITE BLOOD COUNT (AUTO) 7.2 K/uL (4.3-11.0)
[2017-12-14 06:02] LABS: BILIRUBIN,TOTAL 1.2 mg/dL (0.2-1.0); CALCIUM, SERUM 7.6 mg/dL (8.5-10.1); CREATININE 0.9 mg/dL (0.6-1.3); MAGNESIUM 1.5 mg/dL (1.8-2.4); POTASSIUM 3.4 mmol/L (3.5-5.1); TOTAL PROTEIN, SERUM 6.5 g/dL (6.4-8.2)
[2017-12-14 06:03] LABS: ALBUMIN 1.1 g/dL (3.4-5.0)
--- NOTE | 2017-12-14 06:30 | NUR ---
Patient resting.VS stable.All needs anticipated and met.Turned and repositioned.Albumin 1.1 will endorse to am shift RN for continuity of care.
--- NOTE | 2017-12-14 07:15 | NUR ---
RN INITIAL NOTES RECEIVED PT SEDATED, ETT IN PLACE. ON VENT. NO RESPIRATORY DISTRESS NOTED. NO SOB NOTED. NO SIGNS OF PAIN NOTED. OG IN PLACE. TOLERATING GLUCERNA AT 55ML/HR. NO RESIDUAL NOTED. PT ON DIPRIVAN AT 30MCG/KG/MIN. WILL TITRATE ACCORDINGLY. JOHN PICC IN PLACE. FC IN PLACE. NO HEMATURIA NOTED. PT COMFORTABLE. WILL MONITOR.
[2017-12-14] MEDS: FOLIC ACID 1 MG TABLET PO SCH (08:21)
[2017-12-14] MEDS: LACTOBACILLUS RHAMNOSUS GG 1 EACH CAP.SPRINK PO SCH ×2 (08:21→16:38)
[2017-12-14] MEDS: PANTOPRAZOLE 40 MG VIAL IV SCH ×2 (08:21→22:00)
[2017-12-14] MEDS: PROSOURCE / PROSTAT (PYXIS) 30 ML UDC GT SCH (08:21)
[2017-12-14] MEDS: THIAMINE HCL 100 MG TABLET GT SCH (08:21)
[2017-12-14] MEDS: ENOXAPARIN SODIUM 40 MG/0.4 ML DISP.SYRIN SQ SCH (08:22)
[2017-12-14] MEDS: VANCOMYCIN 1 GM in IV D5W 250 ML IV SCH (08:51)
[2017-12-14] MEDS ORDERED: POTASSIUM CHLORIDE 20 MEQ POWDER PACKET NG SCH (09:00)
[2017-12-14] MEDS: Magnesium 1GM/D5W 100ML PREMIX 100 ML IV SCH ×2 (09:22→10:24)
[2017-12-14] MEDS: FUROSEMIDE 100 MG/10 ML VIAL IV SCH ×3 (09:23→16:38)
--- NOTE | 2017-12-14 09:30 | NUR ---
RN NOTES SEEN AND EXAMINED BY DR MINA. PT ON SEDATION VACATION. PT AWAKE, ABLE TO FOLLOW SIMPLE COMMANDS. ON WEANING TRIALS, SIMV MODE. WILL CLOSELY MONITOR.
[2017-12-14] MEDS: GLUCERNA 1.2 1,000 ML BOTTLE NG PRN (09:57)
--- NOTE | 2017-12-14 10:35 | NUR ---
RN NOTES ABG DONE. PT ON SIMV MODE. NO SOB NOTED. NO RESPIRATORY DISTRESS NOTED. HOB ELEVATED. DR MINA AWARE OF RESULT, WILL KEEP PT ON SIMV MODE. WILL CLOSELY MONITOR.
--- NOTE | 2017-12-14 14:14 | NUR ---
RT NOTE: PATIENT RECEIVED ORALLY INTUBATED WITH 8.0 ETT SECURED AT 26 CM MID LIP LINE ON ESPRIT VENT. ETT MOVED FROM RIGHT TO LEFT SIDE OF HIS MOUTH VIA ANCHOR FAST. PATIENT REMAINS ON SIMV TOLERATING WELL. VENT ALARMS VERIFIED AND AUDIBLE. PATIENT WAS SUCTIONED AND LAVAGED TO OBTAIN LARGE AMOUNT OF THIN WHITE SECRETIONS. VENT PLUGGED INTO RED OUTLET. AMBU BAG AT [facility].
--- NOTE | 2017-12-14 18:34 | NUR ---
RN CLOSING NOTES PT TOLERATES SIMV MODE. NO RESPIRATORY DISTRESS NOTED. NO SOB NOTED. KEPT HOB ELEVATED. DENIES ANY PAIN. TOLERATES GTF WELL. FC IN PLACE. KEPT CLEAN AND DRY. KEPT COMFORTABLE. REPOSITIONED Q2. WILL ENDORSE FOR CONTINUITY OF CARE
--- NOTE | 2017-12-14 20:00 | NUR ---
Received patient awake and follows commands.Maintained on same prescribed vent settings SIMV mode tolerating well.No respiratory distress noted.Tolerating OGT feeding.SR per monitor no ectopies noted.VS stable.Turned and repositioned.With moderate clear yellow urine.Continue monitoring.
--- NOTE | 2017-12-14 20:17 | NUR ---
PT ON VENT SIMV MODE. PT AP VENT SETTINGS WELL WITH NO RESPIRATORY DISTRESS NOTED ATT. PT IS INTUBATED WITH A 8.0 ET TUBE SECURED 26CM AT THE LIP. BREATH SOUNDS DIMINISHED/COURSE SX PT PRN RETURNING SMALL TO MODERATE PALE YELLOW SECRETIONS. VENT ALARMS CHECKED FOUND TO BE FUNCTIONAL, AUDIBLE, AND WITHIN LIMITS. VENT PLUGGED INTO RED OUTLET. BVM AT BEDSIDE.
--- NOTE | 2017-12-14 22:10 | NUR ---
Patient had paroxysmal SVT 170 non sustaining then back to NSR without intervention.Patient not in any distress.Continue monitoring.
[2017-12-15] VITALS (35 sets, daily range): BP systolic 83–165; BP diastolic 37–93
[2017-12-15] MEDS: MEROPENEM 1 G in IV NS 0.9% 100 ML IV SCH ×3 (05:00→21:00)
[2017-12-15] MEDS: METRONIDAZOLE 500 MG TABLET GT SCH ×3 (05:00→21:00)
[2017-12-15 05:24] LABS: BILIRUBIN,TOTAL 1.5 mg/dL (0.2-1.0); CALCIUM, SERUM 7.9 mg/dL (8.5-10.1); CREATININE 0.9 mg/dL (0.6-1.3); MAGNESIUM 1.4 mg/dL (1.8-2.4); PHOSPHORUS 2.9 mg/dL (2.5-4.9); POTASSIUM 3.4 mmol/L (3.5-5.1)
[2017-12-15] MEDS: BLOOD SUGAR DIAGNOSTIC 1 EACH STRIP IN SCH ×3 (05:32→17:12)
[2017-12-15] MEDS: INSULIN REGULAR, HUMAN 100 UNIT/ML 3 ML VIAL SQ PRN ×3 (05:34→17:13)
[2017-12-15 05:37] LABS: ALBUMIN 1.2 g/dL (3.4-5.0)
--- NOTE | 2017-12-15 06:35 | NUR ---
Patient resting.No distress noted.Tolerated vent settings on SIMV mode all throughout the night. Tube feeding tolerated well.Good urine output.FSBS coverage given per sliding scale.All needs met.
[2017-12-15] MEDS ORDERED: POTASSIUM CHLORIDE 20 MEQ POWDER PACKET NG SCH (08:00)
--- NOTE | 2017-12-15 08:20 | NUR ---
PER DR MINA ORDER PATIENT VENT SETTINGS CHANGED TO CPAP 12 FIO2 40%. VENT ALARMS CHECKED + AUDIBLE. PATIENT AWAKE AND IN NO DISTRESS AT THIS TIME. OSCAR JOHNSON AWARE Addendum: 12/15/17 at 0821 by IZZY CONNOR RT Amended: Links added.
[2017-12-15] MEDS: THIAMINE HCL 100 MG TABLET GT SCH ×2 (09:00→09:21)
[2017-12-15] MEDS: LACTOBACILLUS RHAMNOSUS GG 1 EACH CAP.SPRINK PO SCH ×3 (09:00→17:11)
[2017-12-15] MEDS ORDERED: DC PROPOFOL WHEN EXTUBATED XX PRN (09:00)
[2017-12-15] MEDS: FOLIC ACID 1 MG TABLET PO SCH ×2 (09:00→09:21)
--- NOTE | 2017-12-15 09:00 | NUR ---
ICU/RN AM SHIFT INITIAL NOTES RECEIVED PT AWAKE SITTING IN BED, PT ALERT, COOPERATIVE. INTUBATED ON SIMV MODE, TIP 26 ON LIP, SATURATING WELL, SATURATING @ 100%, LUNG SOUNDS CLEAR, RESPIRATIONS EVEN & UNLABORED. ON TELE WITH SINUS RHYTHM, HR 82. PICC LINE INTACT BUT ALL PORTS ARE OCCLUDED, WILL PLACE PERIPHERAL IV. OGT ON GOING @ 55CC/HR, NO GASTRIC RESIDUAL, FLUSHED, PATENT. CLAIRE CATHETER INTACT WITH YELLOW URINE OUTPUT. RIGHT BKS STUMP DRESSING INTACT AND CLEAN. PT IS COMFORTABLE, SCHEDULED AM MEDS TO BE GIVEN. CL WITHIN REACHED AND SAFETY MAINTAINED. ON GOING MONITORING.
[2017-12-15 09:09] LABS: ABG BASE EXCESS 7.9 mmol/L; ABG PCO2 37.7 mmHg (35.0-45.0); ABG PH 7.534 (7.350-7.450); ABG PO2 100.5 mmHg (75.0-100.0); AaDO2 141.3 mmHg; COHb 0.3 % (0.5-1.5); MetHb 0.6 % (0.0-1.5); O2Hb 96.1 % (94.0-97.0); PEEP,BG 5 cm H2O; SITE, ABG Right Radial
--- NOTE | 2017-12-15 09:18 | NUR ---
ICU/RN EXTUBATED RESPIRATORY THERAPISTS AT BEDSIDE EXTUBATING PT. MONITORING CONTINUED. Addendum: 12/15/17 at 1034 by CARLENE BERTRAND RN ADDENDUM: PT PLACED ON 5L O2 VIA N/C POST EXTUBATION.
[2017-12-15] MEDS: ENOXAPARIN SODIUM 40 MG/0.4 ML DISP.SYRIN SQ SCH (09:20)
[2017-12-15] MEDS: VANCOMYCIN 1 GM in IV D5W 250 ML IV SCH (09:21)
[2017-12-15] MEDS: PROSOURCE / PROSTAT (PYXIS) 30 ML UDC GT SCH (09:21)
[2017-12-15] MEDS: PANTOPRAZOLE 40 MG VIAL IV SCH ×2 (09:22→22:39)
--- NOTE | 2017-12-15 09:25 | NUR ---
RT NOTE: PATIENT RECEIVED AWAKE AND ALERT. POST ABG RESULTS ORDERED TO EXTUBATE. PATIENT WAS EXTUBATED AND PLACED ON OXYGEN AT 5 LPM VIA NASAL CANNULA. PATIENT IS TOLERATING WELL AT THIS TIME.
[2017-12-15] MEDS: Magnesium 1GM/D5W 100ML PREMIX 100 ML IV SCH ×4 (10:33→17:11)
--- NOTE | 2017-12-15 12:00 | NUR ---
ICU/RN NOON ROUNDS NO ACUTE CHANGE OF CONDITION. SATURATING WELL. MONITORING CONTINUED.
[2017-12-15] MEDS ORDERED: IV NS 0.9% 250 ML IV ONE (16:00)
--- NOTE | 2017-12-15 17:00 | NUR ---
ICU/RN AFTERNOON ROUNDS PM CARE PROVIDED, PT SATURATING WELL ON O2 VIA N/C, RESPIRATIONS EVEN & UNLABORED. MONITORING CONTINUED.
--- NOTE | 2017-12-15 19:12 | NUR ---
ICU/RN AM SHIFT END NOTES ALL NEEDS MET. NO ACUTE CHANGE OF CONDITION NOTED DURING SHIFT, TOLERATING EXTUBATION. PT ENDORSED TO PM NURSE TO CONTINUE CARE. CL WITHIN REACHED AND SAFETY MAINTAINED.
--- NOTE | 2017-12-15 20:00 | NUR ---
Received patient awake alert oriented to name and place otherwise confused.Safety precaution observed with call light within easy reach.Bed low, engaged and alarm on.SR per monitor.O2 5L NC on saturation 96%.Denies pain.No acute distress noted.FC to gravity with carlos alberto urine.NS at TKO infusing to AHMET Midline site intact.Turned and repositioned.
--- NOTE | 2017-12-15 23:10 | NUR ---
Patient desat to 81%.O2 changed to simple mask 8L.Saturation up to 99%.No respiratory distress noted.
[2017-12-16] VITALS (21 sets, daily range): BP systolic 114–161; BP diastolic 58–94
[2017-12-16] MEDS: ACETAMINOPHEN 650 MG/20.3 ML UDC GT PRN (00:06)
--- NOTE | 2017-12-16 00:10 | NUR ---
Patient febrile temp 101.PRN Tylenol administered and cooling measures done.Turned and repositioned.
[2017-12-16] MEDS: BLOOD SUGAR DIAGNOSTIC 1 EACH STRIP IN SCH ×5 (00:15→21:03)
[2017-12-16] MEDS: INSULIN REGULAR, HUMAN 100 UNIT/ML 3 ML VIAL SQ PRN ×2 (00:16→13:26)
[2017-12-16] MEDS: MEROPENEM 1 G in IV NS 0.9% 100 ML IV SCH ×3 (05:12→20:20)
[2017-12-16] MEDS: METRONIDAZOLE 500 MG TABLET GT SCH ×3 (05:12→20:20)
[2017-12-16 05:42] LABS: CALCIUM, SERUM 8.4 mg/dL (8.5-10.1); CREATININE 0.8 mg/dL (0.6-1.3); POTASSIUM 3.7 mmol/L (3.5-5.1)
--- NOTE | 2017-12-16 06:00 | NUR ---
Patient resting.Latest temp 97.6.FSBS done and coverage given per sliding scale.All due medications administered.Denies pain.Turned and repositioned.All needs met.
--- NOTE | 2017-12-16 07:25 | NUR ---
ICU/RN AM SHIFT INITIAL NOTES RECEIVED PT ASLEEP IN BED, PT A/O X 2 WITH NOTED CONFUSION. ON SIMPLE MASK WITH 8L OF O2, SATURATING @ 100% LUNG SOUNDS DIMINISHED, ON TELE MONITORING, HR 69. MIDLINE INTACT ON TKO, NO S/S OF INFECTION. CLAIRE CATHETER INTACT NOTED WITH CLEAR DARK YELLOW URINE OUTPUT. DRESSING ON RIGHT STUMP INTACT AND CLEAN. PT IS COMFORTABLE. SCHEDULED FOR SWALLOW EVALUATION AND WOUND CONSULT TODAY. CL WITHIN REACHED AND SAFETY MAINTAINED. ON GOING MONITORING.
[2017-12-16] MEDS: PROSOURCE / PROSTAT (PYXIS) 30 ML UDC GT SCH (08:04)
[2017-12-16] MEDS: FOLIC ACID 1 MG TABLET PO SCH (08:05)
[2017-12-16] MEDS: THIAMINE HCL 100 MG TABLET GT SCH (08:05)
[2017-12-16] MEDS: LACTOBACILLUS RHAMNOSUS GG 1 EACH CAP.SPRINK PO SCH ×2 (08:05→17:17)
[2017-12-16] MEDS: ENOXAPARIN SODIUM 40 MG/0.4 ML DISP.SYRIN SQ SCH (08:06)
[2017-12-16] MEDS: VANCOMYCIN 1 GM in IV D5W 250 ML IV SCH (08:06)
--- NOTE | 2017-12-16 09:00 | NUR ---
ICU/RN SWALLOW EVALUATION - PASSED PT SEEN AND EVALUATED BY SPEECH THERAPIST AT BEDSIDE. PT PASSED EVALUATION, PER THERAPIST RECOMMENDATION START WITH MECHANICAL SOFT DIET WITH LOTS OF GRAVY. NOTED. MONITORING.
[2017-12-16] MEDS: PANTOPRAZOLE 40 MG VIAL IV SCH (09:30)
--- NOTE | 2017-12-16 15:00 | NUR ---
ICU/RN PT EVALUATION PT SEEN AND EVALUATED BY (2) PHYSICAL THERAPIST AT BEDSIDE, TRIED TO SIT PT IN CHAIR BUT TOO WEAK. PT PLACED BACK TO BED. ON GOING MONITORING.
--- NOTE | 2017-12-16 17:00 | NUR ---
ICU/EXCEL ANALYST CONSULT PT SEEN & EXAMINED BY DR. ANDERSON AND CHAYITO TAI. NO NEW ORDERS RECEIVED. MONITORING CONTINUED.
--- NOTE | 2017-12-16 18:30 | NUR ---
ICU/UNIVERSITY PRESIDENT TO [address] [place], [place] [address]ETRY - [phone]#1 REPORT GIVEN TO 3 [place] NURSE MARINA. PT LEFT ICU UNIT VIA BED IN STABLE CONDITION. NOTIFIED PT'S SON PASCUAL OF THE TRANSFER.
--- NOTE | 2017-12-16 19:30 | NUR ---
PERPETUAL INVENTORY CLERK OPENING NOTES RECEIVED PATIENT IN BED AWAKE, IN STABLE CONDITION. ALERT AND ORIENTED X1-2, WITH CONFUSION, VERBALLY RESPONSIVE. BREATHING EVEN AND UNLABORED. NO SOB NOTED. ON O2 AT 5LPM VIA NASAL CANNULA. SATING WELL. IV ON LEFT UPPER ARM INTACT AND PATENT. ALL OTHER NEEDS ATTENDED TO. CALL LIGHT WITHIN REACH. BED ON LOWEST LOCKED POSITION. WILL CONTINUE TO MONITOR.
--- NOTE | 2017-12-16 20:25 | NUR ---
CONFIGURATION ANALYST NOTES PATIENT'S MEREM WAS PREPARED AND SCANNED RIGHT AT THE SAME TIME ID DISCONTINUED IT. VERIFIED WITH ID THAT MEDICATION HAS BEEN DISCONTINUED. MEDICATION WAS NOT GIVEN.
[2017-12-16] MEDS: CEFTRIAXONE 1 G in IV NS 0.9% 50 ML IV SCH (21:03)
--- NOTE | 2017-12-16 21:24 | NUR ---
BLACKSMITH HAMMER OPERATOR NOTES PATIENT'S BS [id number] - NO COVERAGE NEEDED.
[2017-12-17] VITALS: BP 135/80
[2017-12-17 04:00] VITALS: BP 148/81
[2017-12-17] MEDS: METRONIDAZOLE 500 MG TABLET GT SCH ×3 (05:00→21:28)
--- NOTE | 2017-12-17 06:57 | NUR ---
LOADING AND UNLOADING SUPERVISOR NOTES PATIENTS BS 129 - NO COVERAGE NEEDED
[2017-12-17] MEDS: BLOOD SUGAR DIAGNOSTIC 1 EACH STRIP IN SCH ×4 (06:58→21:28)
--- NOTE | 2017-12-17 07:31 | NUR ---
MAIL CLERKS SUPERVISOR CLOSING NOTES PATIENT IN BED AWAKE, IN STABLE CONDITION. ALERT AND ORIENTED X1-2, WITH CONFUSION, VERBALLY RESPONSIVE. BREATHING EVEN AND UNLABORED. NO SOB NOTED. ON O2 AT 5LPM VIA NASAL CANNULA. SATING . IV ON LEFT UPPER ARM INTACT AND PATENT. NO COMPLAINTS OF PAIN OR DISCOMFORT. ALL OTHER NEEDS ATTENDED TO. CALL LIGHT WITHIN REACH. BED ON LOWEST LOCKED POSITION. WILL ENDORSE TO ONCOMING NURSE FOR CONTINUITY OF CARE..
--- NOTE | 2017-12-17 07:45 | NUR ---
TRAILER DRIVER NOTES PATIENT RECEIVED RESTING INSIDE ROOM. AWAKE, ALERT AND ORIENTED X 1. VERBALLY RESPONSIVE AND RESPONDS TO VERBAL AND TACTILE STIMULI. PATIENT BREATHING EVEN AND UNLABORED. NO SOB OR ACUTE DISTRESS NOTED AT THIS TIME. NO CHANGES IN LOC NOTED AT THIS TIME. PATIENT CALM AND RELAXED, NOTED WITH EPISODES OF ATTEMPTING TO GET OUT OF BED UNASSISTED, BED ALARM ON. FALL PRECAUTIONS IN PLACE. IV SITE INTACT AND PATENT. WILL CONTINUE TO MONITOR. BED LOCKED AND IN LOW POSITION. BILATERAL UPPER SIDE RAILS UP AND LOCKED. CALL LIGHT WITHIN EASY REACH
[2017-12-17 08:00] VITALS: BP 144/79
[2017-12-17 08:18] LABS: BASOPHILS % (AUTO) 0.4 % (0.0-2.0); EOSINOPHILS % (AUTO) 1.9 % (0.0-6.0); HEMATOCRIT 30 % (39-51); HEMOGLOBIN 9.7 g/dL (13.5-17.5); LYMPHOCYTES # (AUTO) 0.8 /CMM (0.8-4.8); LYMPHOCYTES % (AUTO) 10.5 % (20.0-44.0); MEAN CORPUSCULAR HEMOGLOBIN 31 PG (26.0-33.0); MEAN CORPUSCULAR HGB CONC 33 g/dl (31.0-36.0); MEAN CORPUSCULAR VOLUME 95 fL (80-96); MONOCYTES # (AUTO) 0.8 /CMM (0.1-1.30); MONOCYTES % (AUTO) 9.7 % (2.0-12.0); NEUTROPHILS # (AUTO) 6.1 /CMM (1.8-8.9); NEUTROPHILS % (AUTO) 77.5 % (43.0-81.0); PLATELET COUNT (AUTO) 214 /CMM (150-450); RDW COEFFICIENT OF VARIATION 16.7 (11.5-15.0); RED BLOOD CELL COUNT(AUTO) 3.14 MIL/uL (4.5-6.0); WHITE BLOOD COUNT (AUTO) 7.9 K/uL (4.3-11.0)
[2017-12-17 08:30] LABS: CALCIUM, SERUM 8.2 mg/dL (8.5-10.1); CREATININE 0.8 mg/dL (0.6-1.3); MAGNESIUM 1.5 mg/dL (1.8-2.4); PHOSPHORUS 2.3 mg/dL (2.5-4.9); POTASSIUM 3.5 mmol/L (3.5-5.1)
[2017-12-17] MEDS: FOLIC ACID 1 MG TABLET PO SCH (08:37)
[2017-12-17] MEDS: PROSOURCE / PROSTAT (PYXIS) 30 ML UDC GT SCH (08:37)
[2017-12-17] MEDS: PANTOPRAZOLE 40 MG TABLET.DR PO SCH (08:37)
[2017-12-17] MEDS: LACTOBACILLUS RHAMNOSUS GG 1 EACH CAP.SPRINK PO SCH ×2 (08:37→17:26)
[2017-12-17] MEDS: THIAMINE HCL 100 MG TABLET GT SCH (08:37)
[2017-12-17] MEDS: ENOXAPARIN SODIUM 40 MG/0.4 ML DISP.SYRIN SQ SCH (08:38)
[2017-12-17] MEDS ORDERED: Magnesium 1GM/D5W 100ML PREMIX 100 ML IV SCH (09:22)
--- NOTE | 2017-12-17 09:34 | NUR ---
VENEER LATHE OPERATOR NOTES PATIENT SEEN AND EXAMINED BY DR. MUNGUIA. PATIENT MAGNESIUM LEVEL OF 1.5. DR. MUNGUIA WITH NEW ORDER WITH MAGNESIUM IV FOR REPLACEMENT. ORDER VERIFIED WITH DR. MUNGUIA THAT TOTAL MAGNESIUM IV TO BE REPLACED IS 4 GRAMS. ORDER VERIFIED. PATIENT MADE AWARE AND VERBALIZED UNDERSTANDING. PHARMACY MADE AWARE. WILL CONTINUE TO MONITOR
[2017-12-17] MEDS: NEUTRA PHOS 1 POWD.PACKET PO SCH ×2 (09:59→17:26)
[2017-12-17] MEDS: Magnesium 1GM/D5W 100ML PREMIX 100 ML IV SCH ×4 (10:00→13:19)
[2017-12-17] MEDS: ALBUTEROL FS 2.5 MG/3 ML VIAL.NEB NEB SCH ×3 (11:39→19:15)
--- NOTE | 2017-12-17 11:41 | NUR ---
RT NOTE: PATIENT IS AWAKE AND ALERT WITH EVEN AND UNLABORED RESPIRATION ON 3LPM NASAL CANNULA. NO WHEEZING NOTED. WAS CONTACTED ON NEW ALBUTEROL TREATMENT. WILL HOLD TREATMENT UNTIL REVIEWS HIS MEDICATION TODAY.
[2017-12-17] MEDS: INSULIN REGULAR, HUMAN 100 UNIT/ML 3 ML VIAL SQ PRN ×3 (12:17→22:40)
[2017-12-17 16:00] VITALS: BP 145/74
--- NOTE | 2017-12-17 18:00 | NUR ---
MS RN NOTES PATIENT WITH MULTIPLE EPISODES OF ATTEMPTING TO GET OUT OF BED UNASSISTED. PATIENT REMINDED OF SAFETY PRECAUTIONS. FALL PRECAUTIONS IN PLACE. BED ALARM ON, BED LOCKED AND IN LOW POSITION. DR. ZACARIAS MADE AWARE AND GAVE OK TO PLACE 1:1 SITTER. ORDER NOTED AND CARRIED OUT. PATIENT MADE AWARE. WILL CONTINUE TO MONITOR
--- NOTE | 2017-12-17 18:55 | NUR ---
MS RN NOTES PATIENT RESTING INSIDE ROOM. AWAKE, ALERT AND ORIENTED X 1-2. VERBALLY RESPONSIVE AND RESPONDS TO VERBAL AND TACTILE STIMULI. NO SOB OR ACUTE DISTRESS NOTED AT THIS TIME. DENIES ANY PAIN OR DISCOMFORT. PATIENT AFEBRILE, SKIN DRY AND WARM TO TOUCH. NO CHANGES IN LOC NOTED. SITTER AT BEDSIDE. IV SITE INTACT AND PATENT, NO SWELLING OR BLEEDING NOTED ON SITE. WILL ENDORSE TO INCOMING SHIFT FOR JUAN. BED LOCKED AND IN LOW POSITION. BILATERAL UPPER SIDE RAILS UP AND LOCKED. CALL LIGHT WITHIN EASY REACH
--- NOTE | 2017-12-17 19:40 | NUR ---
MS RN NOTE: PATIENT RESTING IN BED, NO ACUTE DISTRESS NOTED. BREATHING EVEN AND UNLABORED, NO SOB NOTED. MIDLINE TO AHMET IN PLACE. NO S/S OF HYPER/HYPOGLYCEMIA NOTED. SITTER AT BEDSIDE. BED LOCKED AND IN LOWEST POSITION, CALL LIGHT IN REACH. WILL CONTINUE TO MONITOR.
[2017-12-17 20:00] VITALS: BP 139/71
[2017-12-17] MEDS: CEFTRIAXONE 1 G in IV NS 0.9% 50 ML IV SCH (21:28)
--- NOTE | 2017-12-17 21:45 | NUR ---
MS RN NOTE: PATIENT BLOOD SUGAR LEVEL 167 MG/DL, PATIENT TO RECEIVE 3 UNITS OF INSULIN. NO S/S OF HYPER/HYPOGLYCEMIA NOTED. WILL CONTINUE TOMORROW.
[2017-12-18] MEDS: ALBUTEROL FS 2.5 MG/3 ML VIAL.NEB NEB SCH ×6 (01:30→23:38)
[2017-12-18] MEDS: METRONIDAZOLE 500 MG TABLET GT SCH ×3 (05:16→21:24)
--- NOTE | 2017-12-18 06:10 | NUR ---
MS RN NOTE: PATIENT RESTING IN BED, NO ACUTE DISTRESS NOTED. BREATHING EVEN AND UNLABORED, NO SOB NOTED. MIDLINE TO AHMET IN PLACE. PATIENT BLOOD SUGAR LEVEL 116 MG/DL, NO INSULIN NEEDED PER SLIDING SCALE. NO S/S OF HYPER/HYPOGLYCEMIA NOTED. SITTER AT BEDSIDE. BED LOCKED AND IN LOWEST POSITION, CALL LIGHT IN REACH. WILL ENDORSE TO DAY NURSE TO CONTINUE WITH PLAN OF CARE.
[2017-12-18 06:36] LABS: CALCIUM, SERUM 7.8 mg/dL (8.5-10.1); CREATININE 0.7 mg/dL (0.6-1.3); MAGNESIUM 1.6 mg/dL (1.8-2.4); PHOSPHORUS 2.5 mg/dL (2.5-4.9); POTASSIUM 3.2 mmol/L (3.5-5.1)
[2017-12-18] MEDS: BLOOD SUGAR DIAGNOSTIC 1 EACH STRIP IN SCH ×4 (06:43→21:27)
--- NOTE | 2017-12-18 07:44 | NUR ---
MS RN NOTES PATIENT RECEIVED RESTING INSIDE ROOM, SITTER AT BEDSIDE PATIENT AWAKE, ALERT AND ORIENTED X 1. VERBALLY RESPONSIVE AND RESPONDS TO VERBAL AND TACTILE STIMULI. BREATHING EVEN AND UNLABORED. NO SOB OR ACUTE DISTRESS NOTED AT THIS TIME. PATIENT DENIES ANY PAIN OR DISCOMFORT. NO CHANGES IN LOC NOTED AT THIS TIME, PATIENT CALM AND RELAXED. IV SITE INTACT AND PATENT. WILL CONTINUE TO MONITOR. BED LOCKED AND IN LOW POSITION. BILATERAL UPPER SIDE RAILS UP AND LOCKED. CALL LIGHT WITHIN EASY REACH.
[2017-12-18 08:00] VITALS: BP 130/76
[2017-12-18] MEDS: THIAMINE HCL 100 MG TABLET GT SCH (08:22)
[2017-12-18] MEDS: PROSOURCE / PROSTAT (PYXIS) 30 ML UDC GT SCH (08:22)
[2017-12-18] MEDS: FOLIC ACID 1 MG TABLET PO SCH (08:22)
[2017-12-18] MEDS: PANTOPRAZOLE 40 MG TABLET.DR PO SCH (08:22)
[2017-12-18] MEDS: LACTOBACILLUS RHAMNOSUS GG 1 EACH CAP.SPRINK PO SCH ×2 (08:22→17:33)
[2017-12-18] MEDS: ENOXAPARIN SODIUM 40 MG/0.4 ML DISP.SYRIN SQ SCH (08:23)
[2017-12-18] MEDS ORDERED: Magnesium 1GM/D5W 100ML PREMIX 100 ML IV SCH (09:30)
--- NOTE | 2017-12-18 09:40 | NUR ---
TEXTED DR. HERRERA FOR MRI APPROVAL.
[2017-12-18] MEDS: FUROSEMIDE 40 MG/4 ML VIAL IV SCH (09:52)
[2017-12-18] MEDS: Magnesium 1GM/D5W 100ML PREMIX 100 ML IV SCH ×2 (09:53→11:29)
[2017-12-18] MEDS ORDERED: POTASSIUM CHLORIDE 20 MEQ TAB.PRT.SR PO ONE (10:00)
[2017-12-18] MEDS: INSULIN REGULAR, HUMAN 100 UNIT/ML 3 ML VIAL SQ PRN ×3 (12:44→21:36)
[2017-12-18 16:00] VITALS: BP 124/52
--- NOTE | 2017-12-18 19:05 | NUR ---
MS RN NOTES PATIENT RESTING INSIDE ROOM. AWAKE, ALERT AND ORIENTED 1-2. VERBALLY RESPONSIVE AND RESPONDS TO VERBAL AND TACTILE STIMULI. NO CHANGES IN LOC NOTED AT THIS TIME. BREATHING EVEN AND UNLABORED. NO SOB OR ACUTE DISTRESS NOTED. PATIENT AFEBRILE, SKIN DRY AND WARM TO TOUCH. IV SITE INTACT AND PATENT. WILL ENDORSE TO INCOMING SHIFT FOR JUAN. BED LOCKED AND IN LOW POSITION. BILATERAL UPPER SIDE RAILS UP AND LOCKED. CALL LIGHT WITHIN EASY REACH
--- NOTE | 2017-12-18 19:30 | NUR ---
RN MS OPENING NOTES RECEIVED PATIENT IN BED AWAKE, IN STABLE CONDITION. ALERT AND ORIENTED X1-2, WITH CONFUSION, VERBALLY RESPONSIVE. BREATHING EVEN AND UNLABORED. NO SOB NOTED. ON O2 AT 3LPM VIA NASAL CANNULA. IV ON LEFT UPPER ARM INTACT AND PATENT. ALL OTHER NEEDS ATTENDED TO. CALL LIGHT WITHIN REACH. BED ON LOWEST LOCKED POSITION. WILL CONTINUE TO MONITOR
[2017-12-18 20:00] VITALS: BP 151/58
[2017-12-18] MEDS: CEFTRIAXONE 1 G in IV NS 0.9% 50 ML IV SCH (21:25)
[2017-12-19] MEDS: ALBUTEROL FS 2.5 MG/3 ML VIAL.NEB NEB SCH ×6 (02:50→23:09)
[2017-12-19] MEDS: METRONIDAZOLE 500 MG TABLET GT SCH ×3 (04:16→20:44)
--- NOTE | 2017-12-19 06:30 | NUR ---
RN MS NOTES PATIENTS BS 129 - NO COVERAGE NEEDED
[2017-12-19] MEDS: BLOOD SUGAR DIAGNOSTIC 1 EACH STRIP IN SCH ×4 (06:37→22:14)
--- NOTE | 2017-12-19 06:51 | NUR ---
RN MS CLOSING NOTES PATIENT IN BED AWAKE, IN STABLE CONDITION. ALERT AND ORIENTED X1-2, WITH CONFUSION, VERBALLY RESPONSIVE. BREATHING EVEN AND UNLABORED. NO SOB NOTED. ON O2 AT 3LPM VIA NASAL CANNULA. IV ON LEFT UPPER ARM INTACT AND PATENT. NO COMPLAINTS OF PAIN OR DISCOMFORT. ALL OTHER NEEDS ATTENDED TO. CALL LIGHT WITHIN REACH. BED ON LOWEST LOCKED POSITION. WILL ENDORSE TO ONCOMING NURSE FOR CONTINUITY OF CARE.
[2017-12-19 07:06] LABS: CALCIUM, SERUM 8.1 mg/dL (8.5-10.1); CREATININE 0.8 mg/dL (0.6-1.3); MAGNESIUM 1.6 mg/dL (1.8-2.4); PHOSPHORUS 2.5 mg/dL (2.5-4.9); POTASSIUM 3.5 mmol/L (3.5-5.1)
--- NOTE | 2017-12-19 07:30 | NUR ---
PT RECEIVED RESTING COMFORTABLY IN BED. NO S/S OR C/O PAIN OR DISTRESS NOTED. SIDE RAILS UP X2, CALL LIGHT LEFT WITHIN REACH. WILL CONTINUE PLAN OF CARE.
[2017-12-19 08:00] VITALS: BP 138/83
[2017-12-19] MEDS: FOLIC ACID 1 MG TABLET PO SCH (08:34)
[2017-12-19] MEDS: THIAMINE HCL 100 MG TABLET GT SCH (08:34)
[2017-12-19] MEDS: FUROSEMIDE 40 MG/4 ML VIAL IV SCH (08:34)
[2017-12-19] MEDS: PANTOPRAZOLE 40 MG TABLET.DR PO SCH (08:34)
[2017-12-19] MEDS: LACTOBACILLUS RHAMNOSUS GG 1 EACH CAP.SPRINK PO SCH ×2 (08:34→16:57)
[2017-12-19] MEDS: PROSOURCE / PROSTAT (PYXIS) 30 ML UDC GT SCH (08:45)
[2017-12-19] MEDS: ENOXAPARIN SODIUM 40 MG/0.4 ML DISP.SYRIN SQ SCH (08:45)
[2017-12-19] MEDS ORDERED: MAGNESIUM OXIDE 400 MG TABLET GT ONE ×2 (10:00→14:00)
[2017-12-19 11:45] LABS: BASOPHILS % (AUTO) 0.5 % (0.0-2.0); EOSINOPHILS % (AUTO) 1.8 % (0.0-6.0); HEMATOCRIT 28 % (39-51); HEMOGLOBIN 9.7 g/dL (13.5-17.5); LYMPHOCYTES # (AUTO) 0.9 /CMM (0.8-4.8); LYMPHOCYTES % (AUTO) 11.8 % (20.0-44.0); MEAN CORPUSCULAR HEMOGLOBIN 33 PG (26.0-33.0); MEAN CORPUSCULAR HGB CONC 34 g/dl (31.0-36.0); MEAN CORPUSCULAR VOLUME 95 fL (80-96); MONOCYTES # (AUTO) 0.8 /CMM (0.1-1.30); MONOCYTES % (AUTO) 11.2 % (2.0-12.0); NEUTROPHILS # (AUTO) 5.6 /CMM (1.8-8.9); NEUTROPHILS % (AUTO) 74.7 % (43.0-81.0); PLATELET COUNT (AUTO) 227 /CMM (150-450); RDW COEFFICIENT OF VARIATION 16.1 (11.5-15.0); RED BLOOD CELL COUNT(AUTO) 2.97 MIL/uL (4.5-6.0); WHITE BLOOD COUNT (AUTO) 7.4 K/uL (4.3-11.0)
[2017-12-19] MEDS: INSULIN REGULAR, HUMAN 100 UNIT/ML 3 ML VIAL SQ PRN (12:36)
--- NOTE | 2017-12-19 19:49 | NUR ---
CHANGE OF SHIFT REPORT PT RESTING COMFORTABLY IN BED. NO S/S OR C/O PAIN OR DISTRESS NOTED. SIDE RAILS UP X2, CALL LIGHT LEFT WITHIN REACH. PT KEPT CLEAN, DRY, AND COMFORTABLE. NO SIGNIFICANT CHANGES SINCE PREVIOUS SHIFT. REPORT GIVEN TO TIMOTHY MOORE.
[2017-12-19 20:10] VITALS: BP 144/74
[2017-12-19] MEDS: CEFTRIAXONE 1 G in IV NS 0.9% 50 ML IV SCH (20:46)
[2017-12-19] MEDS: LORAZEPAM INJ 2 MG/ML VIAL IV PRN (20:56)
[2017-12-20] MEDS: ALBUTEROL FS 2.5 MG/3 ML VIAL.NEB NEB SCH ×4 (03:27→15:29)
[2017-12-20] MEDS: METRONIDAZOLE 500 MG TABLET GT SCH ×2 (05:00→12:39)
--- NOTE | 2017-12-20 06:11 | NUR ---
MS RN NOTES AWAKE & RESPONSIVE. NOT IN ANY DISTRESS. NO SOB NOTED. DENIES ANY PAIN OR DISCOMFORT AT THIS TIME. WITH MIDLINE PATENT & INTACT. CALL LIGHT WITHIN REACH. BED IN LOWEST POSITION. SR UP X 2 FOR SAFETY. WILL ENDORSE TO NEXT SHIFT.
[2017-12-20] MEDS: BLOOD SUGAR DIAGNOSTIC 1 EACH STRIP IN SCH ×3 (06:18→16:57)
--- NOTE | 2017-12-20 07:35 | NUR ---
RN NOTES PATIENT RECEIVED AWAKE ALERT AND VERBALLY RESPONSIVE, CONFUSED, ABLE TO MAKE NEEDS KNOWN, RESPIRATIONS EVEN AND UNLABORED, ABLE TO MAKE NEEDS KNOWN, DENIES ANY PAIN OR DISCOMFORT AT THIS TIME.IV ACCESS PATENT AND INTACT NO REDNESS OR INFILTRATION, SAFETY MEASURES IN PLACE, REMINDED PATIENT TO CALL WHEN ASSISTANCE IS NEEDED. WILL CONTINUE TO FOLLOW UP WITH PT CARE NEEDS, PT ATTEMPTING TO GET OUT OF BED, PT TO HAVE SITTER,CALL LIGHT WITH REACH WILL CONTINUE TO MONITOR
[2017-12-20 08:00] VITALS: BP 148/75
[2017-12-20 08:38] LABS: CALCIUM, SERUM 8.1 mg/dL (8.5-10.1); CREATININE 0.9 mg/dL (0.6-1.3); POTASSIUM 3.1 mmol/L (3.5-5.1)
[2017-12-20] MEDS: FUROSEMIDE 40 MG/4 ML VIAL IV SCH (09:30)
[2017-12-20] MEDS: FOLIC ACID 1 MG TABLET PO SCH (09:30)
[2017-12-20] MEDS: LACTOBACILLUS RHAMNOSUS GG 1 EACH CAP.SPRINK PO SCH ×2 (09:30→16:41)
[2017-12-20] MEDS: PANTOPRAZOLE 40 MG TABLET.DR PO SCH (09:30)
[2017-12-20] MEDS: THIAMINE HCL 100 MG TABLET GT SCH (09:30)
[2017-12-20] MEDS: PROSOURCE / PROSTAT (PYXIS) 30 ML UDC GT SCH (09:31)
[2017-12-20] MEDS: ENOXAPARIN SODIUM 40 MG/0.4 ML DISP.SYRIN SQ SCH (09:33)
[2017-12-20] MEDS: POTASSIUM CHLORIDE 20 MEQ POWDER PACKET GT SCH ×2 (12:39→16:19)
[2017-12-20] MEDS: INSULIN REGULAR, HUMAN 100 UNIT/ML 3 ML VIAL SQ PRN ×2 (12:43→17:38)
[2017-12-20] MEDS ORDERED: POTASSIUM CHLORIDE 20 MEQ POWDER PACKET GT SCH (15:00)
[2017-12-20] MEDS ORDERED: Prosource GT (15:41)
[2017-12-20] MEDS ORDERED: CEFT1FRO2 IV (15:41)
[2017-12-20] MEDS ORDERED: THIA100T13 PO (15:41)
[2017-12-20] MEDS ORDERED: LACT1CAP72 PO (15:41)
[2017-12-20] MEDS ORDERED: ENOX40DI SQ (15:41)
[2017-12-20] MEDS ORDERED: INSU100V28 SQ (15:41)
[2017-12-20] MEDS ORDERED: Blood Sugar Diagnostic IN (15:41)
[2017-12-20] MEDS ORDERED: FOLI1TAB16 PO (15:41)
[2017-12-20] MEDS: LORAZEPAM INJ 2 MG/ML VIAL IV PRN (17:23)
--- NOTE | 2017-12-20 18:30 | NUR ---
RN NOTES PATIENT ASLEEP EASILY AROUSABLE, ALERT AND VERBALLY RESPONSIVE, CONFUSED, ABLE TO MAKE NEEDS KNOWN, RESPIRATIONS EVEN AND UNLABORED, ABLE TO MAKE NEEDS KNOWN, DENIES ANY PAIN OR DISCOMFORT AT THIS TIME.IV ACCESS PATENT AND INTACT NO REDNESS OR INFILTRATION PT TO KEEP IV IN FOR LEARNING CENTER COORDINATOR ATB, REPORT GIVEN TO SN[facility] FOR CONTINUITY OF CARE AND ALSO INSTRUCTIONS GIVEN TO SON,ALL BELONGINGS ACCOUNTED FOR. ID BAND REMOVED, PICTURES OF SKIN TAKEN AND PLACED IN CHART, VSS. SAFETY MEASURES IN PLACE,DISCHARGED IN STABLE CONDITION
== END 2017-12-20 18:30 | DRG 500 ==
LOC: ER 09:59 → ICU 13:42 → TELE 12-16 18:15 → MED 12-17 12:05
PROVIDERS: ADMIT Internal Medicine; ATTEND Internal Medicine
PROC: 5A1955Z Respiratory Ventilation, Greater than 96 Consecutive Hours (ICD-10-PCS; principal; 2017-12-02)
PROC: 0BH17EZ Insertion of Endotracheal Airway into Trachea, Via Natural or Artificial Opening (ICD-10-PCS; 2017-12-02)
PROC: 02HV33Z Insertion of Infusion Device into Superior Vena Cava, Percutaneous Approach (ICD-10-PCS; 2017-12-02)
PROC: 0KBS0ZZ Excision of Right Lower Leg Muscle, Open Approach (ICD-10-PCS; 2017-12-05)
PROC: 05H633Z Insertion of Infusion Device into Left Subclavian Vein, Percutaneous Approach (ICD-10-PCS; 2017-12-15)
PROC: B547ZZA Ultrasonography of Left Subclavian Vein, Guidance (ICD-10-PCS; 2017-12-15)
DX: T87.43 Infection of amputation stump, right lower extremity (principal); I21.A1 Myocardial infarction type 2; A41.9 Sepsis, unspecified organism; R65.21 Severe sepsis with septic shock; G92 Toxic encephalopathy; J69.0 Pneumonitis due to inhalation of food and vomit; J96.01 Acute respiratory failure with hypoxia; N17.0 Acute kidney failure with tubular necrosis; F10.231 Alcohol dependence with withdrawal delirium; L03.115 Cellulitis of right lower limb; E87.2 Acidosis; N39.0 Urinary tract infection, site not specified; M86.9 Osteomyelitis, unspecified; E44.0 Moderate protein-calorie malnutrition; Y83.9 Surgical procedure, unspecified as the cause of abnormal reaction of the patient, or of later complication, without mention of misadventure at the time of the procedure; Y92.89 Other specified places as the place of occurrence of the external cause; E11.22 Type 2 diabetes mellitus with diabetic chronic kidney disease; E11.51 Type 2 diabetes mellitus with diabetic peripheral angiopathy without gangrene; D64.9 Anemia, unspecified; D69.6 Thrombocytopenia, unspecified; E78.5 Hyperlipidemia, unspecified; E83.42 Hypomagnesemia; E87.6 Hypokalemia; F32.9 Major depressive disorder, single episode, unspecified; I10 Essential (primary) hypertension; I25.10 Atherosclerotic heart disease of native coronary artery without angina pectoris; K21.9 Gastro-esophageal reflux disease without esophagitis; Z87.891 Personal history of nicotine dependence; Z82.49 Family history of ischemic heart disease and other diseases of the circulatory system; Z81.1 Family history of alcohol abuse and dependence; Z79.4 Long term (current) use of insulin; R13.10 Dysphagia, unspecified; N18.9 Chronic kidney disease, unspecified; I12.9 Hypertensive chronic kidney disease with stage 1 through stage 4 chronic kidney disease, or unspecified chronic kidney disease; E11.69 Type 2 diabetes mellitus with other specified complication; E83.39 Other disorders of phosphorus metabolism
CPT/HCPCS: 31720; 36415; 36569; 36600; 70450-TC; 71045-TC; 73700-TC; 73721-TC; 74018; 80048-TC; 80053-TC; 80076-TC; 80202-TC; 80305; 81000-TC; 82140-TC; 82272-TC; 82306; 82728-TC; 82803-TC; 82962-TC; 83540-TC; 83605-TC; 83735-TC; 84100-TC; 84425; 84439-TC; 84443-TC; 84478-TC; 84484-TC; 85025-TC; 85730-TC; 87040-TC; 87070-TC; 87081-TC; 87086-TC; 92611-TC; 93307-TC; 94002-TC; 94003-TC; 94762-TC; 97110-TC; 97112-TC; 97530-TC; A4216; A4606; A6253; A6402; A6403; A9563; C9113; G0480; J0692; J0696; J1650; J1815; J1940; J2060; J2185; J2405; J2543; J2916; J3370; J3411; J3475; J3480; J3490; J7030; J7050; J7060; Z7610

== ENCOUNTER 2018-02-10 16:39 | Emergency (ER) | payer MEDICARE, BC ==
[~2018-02-10] VITALS: Ht 190.5 cm; Wt 79.4 kg
[~2018-02-10 16:39] MED LIST changes: -BENA5TAB2 PO; +Blood Sugar Diagnostic IN; +CEFT1FRO2 IV; +ENOX40DI SQ; +FOLI1TAB16 PO; +INSU100V28 SQ; +LACT1CAP72 PO; +Prosource GT; +THIA100T13 PO
--- NOTE | 2018-02-10 17:23 | NUR ---
CALLED [facility] FOR TRANSPORT ETA OF 1830 WAS GIVEN. TRIP#[id number]
[2018-02-10 18:42] VITALS: BP 133/75
== END 2018-02-10 18:44 ==
LOC: ER 16:40
DX: L03.317 Cellulitis of buttock (principal); E11.9 Type 2 diabetes mellitus without complications; I10 Essential (primary) hypertension; Z98.890 Other specified postprocedural states; Z60.2 Problems related to living alone; Z79.4 Long term (current) use of insulin
CPT/HCPCS: 99283; A4606; Z7610

== ENCOUNTER 2019-04-08 00:18 | Inpatient (IN) | payer BC, MEDICARE ==
[~2019-04-08] VITALS: Ht 185.4 cm; Wt 90.7 kg
--- NOTE | 2019-04-08 00:37 | NUR ---
PT KELLIE 102 FROM HOME. AAOX4. PT C/O N/V X 2EPISODE. PER EMS "[facility]." BREATHING EVEN AND UNLABORED. PT PLACED ON MECHANICAL DRAFTER AND PULSE OX. NO ACUTE DISTRESS NOTED.
[2019-04-08] MEDS ORDERED: ONDANSETRON HCL/PF 4 MG/2 ML VIAL ONE ×2 (00:53→02:04)
[2019-04-08] MEDS ORDERED: PANTOPRAZOLE 40 MG VIAL ONE (00:53)
[2019-04-08 00:59] LABS: BASOPHILS % (AUTO) 0.4 % (0.0-2.0); HEMATOCRIT 37 % (39-51); HEMOGLOBIN 12.2 g/dL (13.5-17.5); LYMPHOCYTES # (AUTO) 0.3 /CMM (0.8-4.8); LYMPHOCYTES % (AUTO) 5.6 % (20.0-44.0); MEAN CORPUSCULAR HGB CONC 33 g/dl (31.0-36.0); MEAN CORPUSCULAR VOLUME 91 fL (80-96); MONOCYTES # (AUTO) 0.6 /CMM (0.1-1.30); MONOCYTES % (AUTO) 9.6 % (2.0-12.0); NEUTROPHILS # (AUTO) 4.9 /CMM (1.8-8.9); NEUTROPHILS % (AUTO) 84.4 % (43.0-81.0); PLATELET COUNT (AUTO) 104 /CMM (150-450); RED BLOOD CELL COUNT(AUTO) 4.09 MIL/uL (4.5-6.0); WHITE BLOOD COUNT (AUTO) 5.8 K/uL (4.3-11.0)
[2019-04-08] MEDS ORDERED: IV NS 0.9% 1,000 ML BAG IV ONE ×3 (01:00→03:30)
[2019-04-08] MEDS ORDERED: ONDANSETRON HCL/PF 4 MG/2 ML VIAL IVP ONE (01:00)
[2019-04-08] MEDS ORDERED: PANTOPRAZOLE 40 MG VIAL IV ONE (01:00)
--- NOTE | 2019-04-08 01:02 | NUR ---
IV LINE STARTED. BLOOD DRAWN AND SENT TO THE LAB. PT NOTED W/ LOW BP . PT WAS PLACED ON A [place] POSITION AND IVF STARTED. WILL CONT TO MONITOR ,
--- NOTE | 2019-04-08 01:06 | NUR ---
PT WAS PICKED UP FOR CT
[2019-04-08 01:09] LABS: CALCIUM, SERUM 10.3 mg/dL (8.5-10.1); CARBON DIOXIDE 21 mmol/L (21-32); CHLORIDE 92 mmol/L (98-107); CREATININE 2.1 mg/dL (0.6-1.3); GLUCOSE 200 mg/dL (74-106); POTASSIUM 4.7 mmol/L (3.5-5.1); SODIUM SERUM 133 mmol/L (136-145); UREA NITROGEN, BLOOD 37 mg/dL (7-18)
--- NOTE | 2019-04-08 01:14 | NUR ---
PT BROUGHT BACK FROM CT.
[2019-04-08 01:15] LABS: ALANINE AMINOTRANSFERASE 165 U/L (12-78); ALBUMIN 3.6 g/dL (3.4-5.0); ALKALINE PHOSPHATASE 76 U/L (46-116); ASPARTATE AMINOTRANSFERASE 249 U/L (15-37); BILIRUBIN,DIRECT 0.5 mg/dL (0.0-0.2); BILIRUBIN,TOTAL 1.2 mg/dL (0.2-1.0); LIPASE 354 U/L (73-393)
--- NOTE | 2019-04-08 01:35 | NUR ---
ASKED PT FOR THE LIST OF HIS HOME MEDS. PT'S SON IS GOING HOME TO GRAB HIS MEDICATIONS' BOTTLE.
[2019-04-08] MEDS ORDERED: LOSA50TA39 PO (02:13)
[2019-04-08] MEDS ORDERED: AMOX500C2 PO (02:13)
[2019-04-08] MEDS ORDERED: SITA1TAB6 PO (02:14)
--- NOTE | 2019-04-08 02:27 | NUR ---
[facility] BED 107
[2019-04-08] MEDS ORDERED: ONDANSETRON HCL/PF 4 MG/2 ML VIAL IV ONE (02:30)
[2019-04-08] MEDS ORDERED: MAG HYDROX/AL HYDROX/SIMETH 30 ML UDC PO PRN (02:30)
[2019-04-08] MEDS ORDERED: MAGNESIUM HYDROXIDE 30 ML UDC PO PRN (02:30)
[2019-04-08] MEDS ORDERED: Z GUARD REMEDY 2 OZ OINT TP PRN (02:30)
[2019-04-08] MEDS ORDERED: ONDANSETRON HCL/PF 4 MG/2 ML VIAL IVP PRN (02:30)
--- NOTE | 2019-04-08 03:11 | NUR ---
GAVE REPORT TO OSCAR JONES. FOR JUAN.
--- NOTE | 2019-04-08 03:18 | NUR ---
BOARD OF DIRECTORS NOTE PATIENT RECEIVED FROM ER IN [facility]. PATIENT ABLE TO ASSIST IN TRANSFERRING TO THE BED. 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 PATIENT STATES HE USES A WALKER AT HOME. PATIENT A/O X 4 NO S/S OF ALTERED MENTAL STATUS. PATIENT DENIES CHEST PAIN/ SOB/ PAIN/ DISCOMFORT.PT HR ST ON THE MONITOR 130 PATIENT C/O OF NAUSEA BUT NO VOMITING. PATIENT HAS 18 G IN RAC PATENT INTACT NO S/S OF INFECTION OR INFILTRATION. POC DISCUSSED WITH PATIENT, CALL LIGHT INSTRUCTIONS GIVEN PATIENT VERBALIZES UNDERSTANDING. SAFETY PRECAUTIONS IN PLACE, CALL LIGHT WITHIN REACH. RN WILL CONTINUE TO MONITOR
--- NOTE | 2019-04-08 03:27 | NUR ---
PT TRANSFERED TO [facility] FOR JUAN UNDER ACLS PROTOCOL.
[2019-04-08] MEDS ORDERED: Thiamine 100 MG in IV D5W 50 ML IV ONE (03:30)
[2019-04-08] MEDS: IV NS 0.9% 1,000 ML IV PRN (05:08)
[2019-04-08] MEDS ORDERED: Thiamine 100 MG/ML VIAL ONE (05:10)
--- NOTE | 2019-04-08 07:05 | NUR ---
RN NOTE RECEIVED ON BED, A/OX4, ON 4L O2 N/C , NO DISTRESS NOTED, PATIENT DENIES CHEST PAIN/ SOB/ PAIN/ DISCOMFORT. PT DENIES ANY N/V AT THIS TIME, STATED FEEDS BETTER , ON TELE ST HR IN 140'S , MD AWARE PER NIGHT NURSE REPORT, IV SITE R AC G 18 G SITE , CLEAN,D DRY , INTACT, SR UP x3 , CALL LIGHT WITHIN EASY REACH, BED LOCKED AND IN LOWEST POSITION, CONTINUE TO MONITOR .
[2019-04-08 08:00] VITALS: BP 136/71
[2019-04-08] MEDS: PANTOPRAZOLE 40 MG VIAL IV SCH ×2 (08:39→20:32)
[2019-04-08 09:00] VITALS: BP 105/76
--- NOTE | 2019-04-08 10:27 | NUR ---
RN NOTES PT TO OR FOR EGD AT THIS TIME IN STABLE CONDITION . DR CALVIN NOTIFED REGARDING HR 130'S.
--- NOTE | 2019-04-08 10:47 | NUR ---
RN NOTES REPORT GIVEN TO LAWRENCE MOORE FOR CONTINUITY OF CARE .
[2019-04-08 12:00] VITALS: BP 108/78
[2019-04-08] MEDS ORDERED: Thiamine 100 MG in IV D5W 50 ML IV SCH (12:00)
[2019-04-08] MEDS: DAKINS QUARTER STRENGTH (0.125%) 480 ML BOTTLE TOP SCH (14:00)
[2019-04-08] MEDS ORDERED: DEXTROSE 50%-WATER 50 ML DISP.SYRIN IV PRN (15:00)
[2019-04-08 16:00] VITALS: BP_SYST 100; BP_SYST 112; BP_DIAS 51; BP_DIAS 80
[2019-04-08] MEDS: LORAZEPAM INJ 2 MG/ML VIAL IV PRN (16:31)
[2019-04-08] MEDS: BLOOD SUGAR DIAGNOSTIC 1 EACH STRIP IN SCH ×2 (16:42→22:24)
[2019-04-08] MEDS: INSULIN REGULAR, HUMAN 100 UNIT/ML 3 ML VIAL SQ PRN ×2 (17:33→22:23)
[2019-04-08] MEDS: ACETAMINOPHEN 325 MG TABLET PO PRN (17:38)
--- NOTE | 2019-04-08 18:58 | NUR ---
RN CLOSING NOTE RN NOTE RECIEVED PATIENT FROM RN IN OR. PATIENT AWAKE ALERT AND NO COMPLAINTS OF PAIN. MD ORDER TO ADVANCE DIET TOLERATED. PATIETN ABLE TO SWALLOW ONE EPISODE OF VOMITTING NOTED GAVE ADRIEN PER MD ORDER. FAMILY AT BEDSIDE. EATING WELL. WOUND PA CAME TO SEE PATIETN SEE ORDERS FOR BKA WOUND. IV PATENT AND INTACT TACHY ON MONITOR GI OK TO D/C PATIENT BUT PRIMARY WANTS TO KEEP HIM DUE TO BOUTS OF TACHYCARDIA. ALL NEEDS MET AT THIS TIME. BED IN LOW POSITION, CALL LIGHT WITHIN REACH SAFTY MEASURES IN PLACE. ALL NEEDS MET AT THIS TIME.
[2019-04-08 20:00] VITALS: BP 108/54
--- NOTE | 2019-04-08 20:00 | NUR ---
CARLOS ENRIQUE RN NOTES PTS IN BED AWAKE A/OX3 ABLE TO MAKE NEEDS KNOWN , ON TELE SR-ST ON THE MONITOR ON R/A SATING 95% no sob no distress noted . v/s stable afebrile .Pts with right bka dressing intact with no bleeding noted.pts on right upper arm g#20 intact and patent ,with ns at 100cc/hr infusing well .all needs attended too ,son at bedside updated with pts current condition.all due meds given as ordered , kept pts clean dry and comfortable.will continue to monitor pts.
[2019-04-08] MEDS: MORPHINE SULFATE INJ 2 MG/ML DISP.SYRIN IV PRN (20:35)
--- NOTE | 2019-04-08 22:00 | NUR ---
kathy rn notes blood sugar for 10pm is 118mg/dl no coverage given per sliding scale, pts on po diet.
[2019-04-09] VITALS: BP 90/47
[2019-04-09] MEDS: IV NS 0.9% 1,000 ML IV PRN (01:01)
[2019-04-09] MEDS ORDERED: Thiamine 100 MG in IV D5W 50 ML IV SCH (02:30)
[2019-04-09 04:00] VITALS: BP 117/43
[2019-04-09 06:32] LABS: BASOPHILS % (AUTO) 0.3 % (0.0-2.0); EOSINOPHILS % (AUTO) 0.1 % (0.0-6.0); HEMATOCRIT 25 % (39-51); HEMOGLOBIN 8.1 g/dL (13.5-17.5); LYMPHOCYTES # (AUTO) 0.6 /CMM (0.8-4.8); LYMPHOCYTES % (AUTO) 16.4 % (20.0-44.0); MEAN CORPUSCULAR HGB CONC 33 g/dl (31.0-36.0); MEAN CORPUSCULAR VOLUME 91 fL (80-96); MONOCYTES # (AUTO) 0.4 /CMM (0.1-1.30); MONOCYTES % (AUTO) 11.8 % (2.0-12.0); NEUTROPHILS # (AUTO) 2.6 /CMM (1.8-8.9); NEUTROPHILS % (AUTO) 71.4 % (43.0-81.0); PLATELET COUNT (AUTO) 52 /CMM (150-450); RED BLOOD CELL COUNT(AUTO) 2.73 MIL/uL (4.5-6.0); WHITE BLOOD COUNT (AUTO) 3.6 K/uL (4.3-11.0)
[2019-04-09 06:45] LABS: THYROID STIMULATING HORMONE 5.009 uIU/mL (0.358-3.74)
[2019-04-09 06:49] LABS: CALCIUM, SERUM 8.6 mg/dL (8.5-10.1); CREATININE 1.5 mg/dL (0.6-1.3); MAGNESIUM 1.6 mg/dL (1.8-2.4); PHOSPHORUS 2.2 mg/dL (2.5-4.9)
[2019-04-09] MEDS: LORAZEPAM INJ 2 MG/ML VIAL IV PRN ×3 (06:52→18:52)
[2019-04-09] MEDS: BLOOD SUGAR DIAGNOSTIC 1 EACH STRIP IN SCH ×4 (07:45→22:23)
--- NOTE | 2019-04-09 07:47 | NUR ---
CARLOS ENRIQUE RN NOTE RECEIVED PATIENT IN THE BED, ALERT ORIENTATED X4, PATIENT ON ROOM AIR, NO SOB ,NO ACTIVE BLEEDING NOTED , RIGHT KNEE BKA AND WITH WOUND DRESSING COVER ,RIGHT ARM HL INTACT,FLUSHED WELL, ON IV FLUID AVF ORDERED ,ACCU CHECK DONE 140MG/DL, PLAN OF CARE DISCUSSED WITH THE PATIENT,CALL LIGHT WITHIN REACH, BED LOCKED IN LOWEST POSITION, WILL CONTINUE TO MONITOR, NO COMPLAINT OF PAIN. ,
[2019-04-09 08:00] VITALS: BP 118/60
[2019-04-09] MEDS: PANTOPRAZOLE 40 MG VIAL IV SCH (08:07)
[2019-04-09] MEDS: INSULIN REGULAR, HUMAN 100 UNIT/ML 3 ML VIAL SQ PRN ×4 (08:13→22:22)
[2019-04-09] MEDS ORDERED: K PHOS NEUTRAL 250 MG TABLET PO ONE (09:00)
[2019-04-09] MEDS: DAKINS QUARTER STRENGTH (0.125%) 480 ML BOTTLE TOP SCH (09:03)
--- NOTE | 2019-04-09 09:09 | NUR ---
CARLOS ENRIQUE RN NOTE SPOKE WITH DR CARMELLA DEL TORO , NOTIFIED HEMOGLOBIN 8.21 ORDERED REPEAT H&H 6 HR AND START SANDOSTATIN DRIP AT 50MCG PER HOUR, WILL MONITOR FOR BLEEDING AND STOOL APPEARANCE
[2019-04-09 09:18] LABS: LYMPHOCYTES % (MANUAL) 23 % (16-48); MONOCYTES % (MANUAL) 13 % (0-11.0); NEUTROPHILS % (MANUAL) 63 (42-76); REACTIVE LYMPHOCYTES 1 % (0-0)
[2019-04-09] MEDS: OCTREOTIDE 1,250 MCG in IV NS 0.9% 247.5 ML IV PRN (09:45)
[2019-04-09] MEDS: Magnesium 1GM/D5W 100ML PREMIX 100 ML IV SCH ×2 (10:51→12:02)
--- NOTE | 2019-04-09 11:49 | NUR ---
CARLOS ENRIQUE RN NOTE MAG 1.6 MAG ,MAG INFUSION ORDERED STARTED , NEW HL ON RT HAND KEE 24 INSERTED WITH GOOD BLOOD RETURN
[2019-04-09 12:00] VITALS: BP 119/64
[2019-04-09] MEDS: THIAMINE HCL 100 MG TABLET PO SCH (13:15)
--- NOTE | 2019-04-09 13:33 | NUR ---
CARLOS ENRIQUE RN NOTE PATIENT FEELS ANXIOUS AND RESTLESS BP116/67 SAT 93%, ATIVAN 0.5MG IV PUSH GIVEN ORDERED. WILL CONTINUE TO MONITOR, ALL NEEDS ATTENDED, CALL LIGHT IS IN REACH, REPOSITION DONE
--- NOTE | 2019-04-09 14:15 | NUR ---
CARLOS ENRIQUE RN NOTE ABLE TO AMBULATE WITH PT WITH WALKER AND 2 ASSIST
[2019-04-09 15:47] LABS: HEMATOCRIT 26 % (39-51); HEMOGLOBIN 8.6 g/dL (13.5-17.5); MEAN CORPUSCULAR HGB CONC 33 g/dl (31.0-36.0); MEAN CORPUSCULAR VOLUME 92 fL (80-96); PLATELET COUNT (AUTO) 52 /CMM (150-450); RED BLOOD CELL COUNT(AUTO) 2.84 MIL/uL (4.5-6.0); WHITE BLOOD COUNT (AUTO) 3.7 K/uL (4.3-11.0)
[2019-04-09 16:00] VITALS: BP 123/65
--- NOTE | 2019-04-09 17:10 | NUR ---
kathy rn note dr ethan salinas notified that hg 8.6 ,no bloody stool at this time, no new order given, will f\u Addendum: 04/09/19 at 1745 by WILL FULLER RN Tylenol for genera pain in body given
[2019-04-09] MEDS: ACETAMINOPHEN 325 MG TABLET PO PRN (17:42)
--- NOTE | 2019-04-09 17:59 | NUR ---
CARLOS ENRIQUE MOORE NOTE PER [facility] REPORT EDEL CONDON PLACED ON ISOLATION PER HOSPITAL PROTOCOL Addendum: 04/09/19 at 1816 by WILL FULLER RN FLU VACCINE GIVEN ORDERED
[2019-04-09] MEDS ORDERED: INFLUENZA VACCINE 2019-20 0.5 ML DISP.SYRIN IM ONE (18:00)
[2019-04-09 20:00] VITALS: BP 126/54
--- NOTE | 2019-04-09 20:00 | NUR ---
CARLOS ENRIQUE RN NOTES PTS IN BED AWAKE A/OX3 ABLE TO MAKE NEEDS KNOWN , ON TELE SR-78 ON THE MONITOR ON R/A SATING 96% no sob no distress noted . v/s stable afebrile .Pts with right bka dressing intact with no bleeding noted.pts on right upper arm g#20 ang rhand g24 intact and patent ,with sandostain 10/hr 50mcg infusing well .all needs attended too ,all due meds given as ordered , kept pts clean dry and comfortable.will continue to monitor pts.morphine 4mg iv given as ordered.c/o generalized pain with effect .call light within reach , bed alarm on ,bed on low site and locked for safety .
[2019-04-09] MEDS: PANTOPRAZOLE 40 MG TABLET.DR PO SCH (21:04)
[2019-04-09] MEDS: MORPHINE SULFATE INJ 2 MG/ML DISP.SYRIN IV PRN (21:05)
[2019-04-09] MEDS: MUPIROCIN OINT 2% 22 GM TUBE SCH (21:08)
--- NOTE | 2019-04-09 22:00 | NUR ---
kathy rn notes blood sugar for 10pm is 119mg/dl no coverage given per sliding scale, pts on po diet.
[2019-04-10] VITALS (7 sets, daily range): BP systolic 112–144; BP diastolic 51–76
[2019-04-10] MEDS: LORAZEPAM INJ 2 MG/ML VIAL IV PRN ×3 (02:16→15:32)
--- NOTE | 2019-04-10 07:20 | NUR ---
CARLOS ENRIQUE/RN OPENING NOTES PATIENT RECEIVED IN BED AWAKE, ALERT AND ABLE TO MAKE NEEDS KNOWN. NO PAIN OR ACUTE DISTRESS AT THIS TIME. RESPIRATION EVEN AND UNLABORED. SKIN IS DRY WARM TO TOUCH. PATIENT NOTED WITH IV ACCESS L HAND AND R HAND. CONTINUES ON TELE MONITORING, SR AROUND 80'S. ALL NEEDS ANTICIPATED. CALL LIGHT WITHIN REACHED. BED LOCKED AND IN LOWEST POSITION. PLAN OR CARE DISCUSSED. WILL CONTINUE TO MONITOR CLOSELY.
[2019-04-10] MEDS: BLOOD SUGAR DIAGNOSTIC 1 EACH STRIP IN SCH ×4 (07:58→21:09)
[2019-04-10] MEDS: INSULIN REGULAR, HUMAN 100 UNIT/ML 3 ML VIAL SQ PRN ×2 (07:59→17:09)
[2019-04-10] MEDS: PANTOPRAZOLE 40 MG TABLET.DR PO SCH ×2 (08:29→21:09)
[2019-04-10] MEDS: THIAMINE HCL 100 MG TABLET PO SCH (08:29)
[2019-04-10] MEDS: DAKINS QUARTER STRENGTH (0.125%) 480 ML BOTTLE TOP SCH (08:30)
[2019-04-10] MEDS: MUPIROCIN OINT 2% 22 GM TUBE SCH ×2 (08:31→21:10)
--- NOTE | 2019-04-10 11:16 | NUR ---
CARLOS ENRIQUE/RN NOTES PATIENT WAS SEEN AND EVALUATED BY DR. WEIR. WITH ORDERS OF LACTULOSE, ROCEPHIN AND CBC TO CHECK HGB. PATIENT CONTINUES TO REMAIN IN STABLE CONDITION. WILL CONTINUE TO MONITOR CLOSELY.
[2019-04-10] MEDS ORDERED: LACTULOSE 10 G/15 ML UDC (PYXIS) PO PRN (11:30)
[2019-04-10 11:53] LABS: BASOPHILS % (AUTO) 0.3 % (0.0-2.0); EOSINOPHILS % (AUTO) 0.2 % (0.0-6.0); HEMATOCRIT 24 % (39-51); LYMPHOCYTES # (AUTO) 0.4 /CMM (0.8-4.8); LYMPHOCYTES % (AUTO) 11.8 % (20.0-44.0); MEAN CORPUSCULAR HGB CONC 33 g/dl (31.0-36.0); MEAN CORPUSCULAR VOLUME 92 fL (80-96); MONOCYTES # (AUTO) 0.4 /CMM (0.1-1.30); MONOCYTES % (AUTO) 12.8 % (2.0-12.0); NEUTROPHILS # (AUTO) 2.3 /CMM (1.8-8.9); NEUTROPHILS % (AUTO) 74.9 % (43.0-81.0); PLATELET COUNT (AUTO) 59 /CMM (150-450); RED BLOOD CELL COUNT(AUTO) 2.64 MIL/uL (4.5-6.0)
[2019-04-10] MEDS: OCTREOTIDE 1,250 MCG in IV NS 0.9% 247.5 ML IV PRN (12:06)
[2019-04-10 13:27] LABS: BAND % (MANUAL) 1 % (0.0-5.0); LYMPHOCYTES % (MANUAL) 14 % (16-48); MONOCYTES % (MANUAL) 8 % (0-11.0); NEUTROPHILS % (MANUAL) 77 (42-76)
[2019-04-10] MEDS: CEFTRIAXONE 1 G in IV D5W 50 ML IV SCH (13:31)
[2019-04-10] MEDS: LACTULOSE 10 G/15 ML UDC (PYXIS) PO SCH ×2 (14:03→21:09)
--- NOTE | 2019-04-10 15:27 | NUR ---
CARLOS ENRIQUE/RN NOTES PATIENT WAS SEEN AND EVALUATED BY CHAYITO VOGEL WITH ORDERS TO CHANGE THE CT HEAD FROM ROUTINE TO STAT. PATIENT CONTINUES TO REMAIN IN STABLE CONDITION. WILL CONTINUE CLOSELY.
[2019-04-10 15:52] LABS: ALBUMIN 3.1 g/dL (3.4-5.0); BILIRUBIN,TOTAL 0.9 mg/dL (0.2-1.0); CALCIUM, SERUM 8.2 mg/dL (8.5-10.1); CREATININE 1.5 mg/dL (0.6-1.3); POTASSIUM 3.7 mmol/L (3.5-5.1); TOTAL PROTEIN, SERUM 6.8 g/dL (6.4-8.2)
--- NOTE | 2019-04-10 16:56 | NUR ---
CARLOS ENRIQUE/RN NOTES SPOKE TO DR. WEIR AND REPORTED CURRENT HBG LEVELS AND THE APPEARANCE OF THE STOOL. PER DR. WEIR CONTINUE SANDOSTATIN, LACTULOSE, AND ROCEPHINE ORDERED. PATIENT CONTINUES TO REMAIN IN STABLE CONDITION. PATIENT NOTED TO BE RESTLESS AT THIS TIME. WILL CONTINUE TO MONITOR CLOSELY.
[2019-04-10 18:44] LABS: CREATININE, URINE 89.8 MG/DL (30.0-125.0); URINE TOTAL PROTEIN 18.7 mg/dL (0-11.9)
--- NOTE | 2019-04-10 19:12 | NUR ---
TD RN NOTES RECEIVED PT ON BED. A/O X 1.SON AT BEDSIDE. ON TELE MONITOR SR 90. ON NASAL CANNULA 2LPM, NO RESPIRATORY DISTRESS NOTED. IV ACCESS ON LEFT HAND G 22 WITH SANDOSTATIN RUNNING @ 50MCG/HR, PATENT AND INTACT. HEAD OF BED ELEVATED. SIDE RAILS UP. CALL LIGHT WITHIN REACH. BED ALARM ON. BED IN LOW AND LOCKED POSITION. WILL MONITOR PT CLOSELY.
[2019-04-10 20:05] LABS: APPEARANCE,URINE CLEAR (CLEAR); BILIRUBIN,URINE NEGATIVE (NEGATIVE); BLOOD, URINE NEGATIVE Ery/uL (NEGATIVE); COLOR,URINE YELLOW (YELLOW); KETONES,URINE NEGATIVE (NEGATIVE); LEUKOCYTE ESTERASE ,URINE NEGATIVE (NEGATIVE); NITRITE, URINE NEGATIVE (NEGATIVE); PROTEIN,URINE NEGATIVE (NEGATIVE); UGLUCOSE NEGATIVE (NEGATIVE); UROBILINOGEN,URINE 0.2 EU/dL (0.2)
--- NOTE | 2019-04-10 21:20 | NUR ---
TD RN NOTES BS OF 66, GIVEN ORANGE JUICE AND PUDDING.
[2019-04-10 21:28] LABS: EOSINOPHIL,URINE None Seen
--- NOTE | 2019-04-10 23:25 | NUR ---
TD RN NOTES PT AGITATED AND CONFUSED. UNABLE TO DO CT SCAN WO CONTRAST WILL FOLLOW UP IN AM.
[2019-04-11] VITALS: BP 151/81
--- NOTE | 2019-04-11 00:44 | NUR ---
TD RN NOTES PT VERY AGITATED AND RESTLESS. ATIVAN GIVEN.
[2019-04-11] MEDS: LORAZEPAM INJ 2 MG/ML VIAL IV PRN ×2 (00:45→09:02)
[2019-04-11 04:00] VITALS: BP 143/72
[2019-04-11] MEDS: LACTULOSE 10 G/15 ML UDC (PYXIS) PO SCH ×3 (04:15→21:01)
--- NOTE | 2019-04-11 07:00 | NUR ---
RN INITIAL NOTE PATIENT IN BED, AWAKE AND ALERT X2. WAS GETTING AGITATED WHEN TOLD HE IS IN THE HOSPITAL. CONFUSED AT TIMES, WAS ASKING [employer] TO WALK THE DOG OUTSIDE. ON ROOM AIR, NOT COMPLAINING OF SOB NOR PAIN AT THIS TIME. ON TELE MONITOR, SR. S/P DEBRIDEMENT OF RIGHT KNEE BKA. HAS RIGHT WRIST 320 WITH OCTREOTIDE AT 10ML/HR. CT OF THE HEAD WITHOUT CONTRAST STILL PENDING. BED LOCKED AND IN LOWEST POSITION. CALL LIGHT WITHIN REACH. SITTER AT BEDSIDE. WILL CONTINUE TO MONITOR
[2019-04-11 07:10] LABS: BASOPHILS % (AUTO) 0.7 % (0.0-2.0); EOSINOPHILS % (AUTO) 0.1 % (0.0-6.0); HEMATOCRIT 26 % (39-51); HEMOGLOBIN 8.5 g/dL (13.5-17.5); LYMPHOCYTES # (AUTO) 0.5 /CMM (0.8-4.8); LYMPHOCYTES % (AUTO) 15.9 % (20.0-44.0); MEAN CORPUSCULAR HGB CONC 33 g/dl (31.0-36.0); MEAN CORPUSCULAR VOLUME 92 fL (80-96); MONOCYTES # (AUTO) 0.6 /CMM (0.1-1.30); MONOCYTES % (AUTO) 19.4 % (2.0-12.0); NEUTROPHILS # (AUTO) 2.1 /CMM (1.8-8.9); NEUTROPHILS % (AUTO) 63.9 % (43.0-81.0); PLATELET COUNT (AUTO) 71 /CMM (150-450); WHITE BLOOD COUNT (AUTO) 3.3 K/uL (4.3-11.0)
--- NOTE | 2019-04-11 07:17 | NUR ---
TD RN NOTES NO ACUTE CHANGES NOTED DURING THE SHIFT. PT STILL CONFUSED AND RESTLESS. NO RESPIRATORY DISTRESS. WILL ENDORSE TO THE AM NURSE FOR CONTINUITY OF CARE.
[2019-04-11 07:23] LABS: ALBUMIN 3.2 g/dL (3.4-5.0); BILIRUBIN,TOTAL 1.4 mg/dL (0.2-1.0); CALCIUM, SERUM 8.2 mg/dL (8.5-10.1); CREATININE 1.5 mg/dL (0.6-1.3); MAGNESIUM 1.7 mg/dL (1.8-2.4); PHOSPHORUS 2.3 mg/dL (2.5-4.9); POTASSIUM 3.4 mmol/L (3.5-5.1); TOTAL PROTEIN, SERUM 7.1 g/dL (6.4-8.2)
[2019-04-11 08:00] VITALS: BP 143/80
[2019-04-11] MEDS: BLOOD SUGAR DIAGNOSTIC 1 EACH STRIP IN SCH ×4 (08:08→21:10)
[2019-04-11] MEDS: PANTOPRAZOLE 40 MG TABLET.DR PO SCH ×2 (08:09→21:01)
[2019-04-11] MEDS: THIAMINE HCL 100 MG TABLET PO SCH (08:09)
[2019-04-11] MEDS: DAKINS QUARTER STRENGTH (0.125%) 480 ML BOTTLE TOP SCH (09:04)
[2019-04-11] MEDS: MUPIROCIN OINT 2% 22 GM TUBE SCH ×2 (09:04→21:02)
--- NOTE | 2019-04-11 09:07 | NUR ---
RN NOTE DR MENDOZA AT BEDSIDE. AWARE THAT PATIENT'S HR WAS UP TO 130s, PATIENT BEING VERY AGITATED. PATIENT WAS GIVEN ATIVAN PRN, HR AT 111 AT THIS TIME. PATIENT WAS AGITATED AND TRYING TO GET OUT OF THE BED LOOKING FOR HIS CAR KEYS. RADIOLOGY CALLED, THEY WILL ATTEMPT TO DO THE CT OF THE HEAD WITHOUT CONTRAST TODAY. IT WAS HELD YESTERDAY DUE TO PATIENT'S AGITATION
[2019-04-11] MEDS ORDERED: Magnesium 1GM/D5W 100ML PREMIX 100 ML IV SCH ×2 (09:30→10:30)
[2019-04-11] MEDS ORDERED: K PHOS NEUTRAL 250 MG TABLET PO ONE (09:30)
[2019-04-11] MEDS ORDERED: POTASSIUM CHLORIDE 20 MEQ TAB.PRT.SR PO SCH (10:00)
[2019-04-11] MEDS ORDERED: LORAZEPAM INJ 2 MG/ML VIAL IV PRN (10:30)
[2019-04-11] MEDS ORDERED: POTASSIUM PHOSPHATE MM 15 MMOL in IV D5W 250 ML IV SCH ×4 (10:30)
[2019-04-11] MEDS: CEFTRIAXONE 1 G in IV D5W 50 ML IV SCH (11:45)
[2019-04-11 12:00] VITALS: BP 141/89
[2019-04-11] MEDS: INSULIN REGULAR, HUMAN 100 UNIT/ML 3 ML VIAL SQ PRN ×2 (12:01→21:15)
--- NOTE | 2019-04-11 12:30 | NUR ---
RN NOTE PATIENT WAS PICKED UP BY RADIOLOGY DEPT VIA HOSPITAL BED FOR CT OF THE HEAD WITHOUT CONTRAST. VSS, PATIENT AWARE. ON BILATERAL WRIST RESTRAINTS
--- NOTE | 2019-04-11 14:09 | NUR ---
RN NOTE DR WEIR AT BEDSIDE. PER , CONTINUE SANDOSTATIN, ROCEPHIN AND LACTULOSE. LIMIT SEDATING MEDS, AVOID GIVING PATIENT ATIVAN. THIS WILL CAUSE MORE CONFUSION DUE TO ENCEPHALOPATHY. PATIENT WAS GIVEN 1 DOSE OF ATIVAN PRN THIS MORNING TO DO THE CT SCAN OF THE HEAD. CT DONE, PENDING RESULTS.
[2019-04-11 16:00] VITALS: BP 156/83
--- NOTE | 2019-04-11 16:16 | NUR ---
RN NOTE SON AT BEDSIDE, PATIENT IS CALM BUT STILL CONFUSED. AWARE THAT CT SCAN DONE AND WILL CONTINUE SANDOSTATIN IV
[2019-04-11] MEDS: OCTREOTIDE 1,250 MCG in IV NS 0.9% 247.5 ML IV PRN (18:04)
--- NOTE | 2019-04-11 18:34 | NUR ---
RN NOTE DR MCGHEE AT BEDSIDE
--- NOTE | 2019-04-11 18:53 | NUR ---
RN CLOSING NOTE PATIENT IN BED, AWAKE AND ALERTX2. DR MCGHEE AT BEDSIDE, PATIENT WAS NOW AWARE WHERE HE IS - [facility]. ON 2L NC, SATURATING WELL AT 100%. NO COMPLAINS OF ANY SOB NOR PAIN. HAD 1X BM, BLACK STOOL. SITTER AT BEDSIDE. HAS A LEFT FA #22, SL. AND RIGHT WRIST #20 WITH OCTREOTIDE AT 10ML/HR. K, PHOS AND MG REPLACED. PER DR WEIR LIMIT SEDATING MEDS, IT WILL CAUSE MORE CONFUSION. CT OF THE HEAD DONE TODAY. PER MD, CONTINUE OF CARE. WILL ENDORSE TO NOC SHIFT FOR JUAN
[2019-04-11 20:00] VITALS: BP 153/71
[2019-04-12] VITALS: BP 144/73
[2019-04-12 04:00] VITALS: BP 141/80
[2019-04-12] MEDS: LACTULOSE 10 G/15 ML UDC (PYXIS) PO SCH ×3 (05:22→21:00)
--- NOTE | 2019-04-12 07:30 | NUR ---
TD/RN ROUNDS - DR. MENDOZA PT SEEN & EXAMINED BY DR. MENDOZA. NO NEW ORDER RECEIVED. MONITORING CONTINUED.
[2019-04-12 07:51] LABS: BASOPHILS % (AUTO) 0.4 % (0.0-2.0); EOSINOPHILS % (AUTO) 1.9 % (0.0-6.0); HEMATOCRIT 27 % (39-51); HEMOGLOBIN 8.8 g/dL (13.5-17.5); LYMPHOCYTES # (AUTO) 0.5 /CMM (0.8-4.8); LYMPHOCYTES % (AUTO) 17.9 % (20.0-44.0); MEAN CORPUSCULAR HGB CONC 33 g/dl (31.0-36.0); MEAN CORPUSCULAR VOLUME 93 fL (80-96); MONOCYTES # (AUTO) 0.6 /CMM (0.1-1.30); MONOCYTES % (AUTO) 21.1 % (2.0-12.0); NEUTROPHILS # (AUTO) 1.7 /CMM (1.8-8.9); NEUTROPHILS % (AUTO) 58.7 % (43.0-81.0); PLATELET COUNT (AUTO) 75 /CMM (150-450); RED BLOOD CELL COUNT(AUTO) 2.87 MIL/uL (4.5-6.0); WHITE BLOOD COUNT (AUTO) 2.9 K/uL (4.3-11.0)
[2019-04-12 08:00] VITALS: BP 138/76
--- NOTE | 2019-04-12 08:00 | NUR ---
TD/RN AM SHIFT INITIAL NOTES RECEIVED PT AWAKE IN BED, PT ALERT X 2 NOTED TO MORE ALERT THEN REPORTED WAS SEEN BY DR. MENDOZA EARLIER THIS MORNING SAID ALSO TO BE MORE ALER, FOLLOWS COMMAND, PELASANT. ON 2L O2 VIA N/C SATURATING @ 95%, LUNG SOUNDS DIMINISHED, RESPIRATIONS EVEN & UNLABORED. PT DENIES PAIN OR ANY OTHER SYMPTOMS, NO NOTED ACTIVE BLEEDING OR ACUTE CHANGE OF CONDITION. ON TELE WITH SINUS RHYTHM, HR 71. PT WITH ON GOING IV INFUSION OF SANDOSTATIN @ 50MCG/HR, IV SITE PATENT WITH NO S/S OF INFECTION. BS CHECKED, 151, NO S/S OF HYPERGLYCEMIA WILL COVER WITH REGULAR INSULIN PER ORDERED SLIDING SCALE. RECEIVED WITH BILATERAL SOFT RESTRAINTS, RELEASED TO CHECKED FOR CIRCULATION AND COMFORT, THEN PLACED BACK. SITTER AT BEDSIDE. PT IS COMFORTABLE, SCHEDULED AM MEDS TO BE GIVEN. CL WITHIN REACHED, SAFETY MAINTAINED AND ISOLATION OBSERVED.
[2019-04-12] MEDS: BLOOD SUGAR DIAGNOSTIC 1 EACH STRIP IN SCH ×4 (08:01→22:08)
[2019-04-12 08:11] LABS: ALBUMIN 2.9 g/dL (3.4-5.0); BILIRUBIN,DIRECT 0.8 mg/dL (0.0-0.2); BILIRUBIN,TOTAL 1.4 mg/dL (0.2-1.0); CALCIUM, SERUM 8.2 mg/dL (8.5-10.1); CREATININE 1.4 mg/dL (0.6-1.3); MAGNESIUM 1.9 mg/dL (1.8-2.4); POTASSIUM 3.3 mmol/L (3.5-5.1); TOTAL PROTEIN, SERUM 6.9 g/dL (6.4-8.2)
[2019-04-12 08:29] LABS: BAND % (MANUAL) 2 % (0.0-5.0); EOSINOPHILS % (MANUAL) 2 % (0-4); LYMPHOCYTES % (MANUAL) 17 % (16-48); MONOCYTES % (MANUAL) 20 % (0-11.0); NEUTROPHILS % (MANUAL) 59 (42-76)
[2019-04-12] MEDS: DAKINS QUARTER STRENGTH (0.125%) 480 ML BOTTLE TOP SCH (08:40)
[2019-04-12] MEDS: MUPIROCIN OINT 2% 22 GM TUBE SCH ×2 (08:40→22:02)
[2019-04-12] MEDS: INSULIN REGULAR, HUMAN 100 UNIT/ML 3 ML VIAL SQ PRN ×4 (08:41→22:32)
[2019-04-12] MEDS: THIAMINE HCL 100 MG TABLET PO SCH (08:42)
[2019-04-12] MEDS: PANTOPRAZOLE 40 MG TABLET.DR PO SCH ×2 (08:42→22:07)
[2019-04-12] MEDS: POTASSIUM CL. PREMIX PERIPHER. 50 ML IV SCH ×4 (08:54→12:53)
[2019-04-12 12:00] VITALS: BP 114/68
[2019-04-12] MEDS: CEFTRIAXONE 1 G in IV D5W 50 ML IV SCH (12:43)
[2019-04-12] MEDS ORDERED: Z GUARD REMEDY 2 OZ OINT TP PRN (14:30)
[2019-04-12 16:00] VITALS: BP 129/69
[2019-04-12] MEDS: OCTREOTIDE 1,250 MCG in IV NS 0.9% 247.5 ML IV PRN (17:21)
--- NOTE | 2019-04-12 17:30 | NUR ---
TD/RN AFTERNOON ROUNDS PM CARE PROVIDED, NO CHANGE OF CONDITION. ON GOING MONITORING.
--- NOTE | 2019-04-12 19:40 | NUR ---
TD RN NOTES, RECEIVED PATIENT IN BED AWAKE A/OX 2, ABLE TO VERBALIZED NEEDS AND CONCERNS, BREATHING EVEN AND UNLABORED, NO SOB/ACUTE DISTRESS NOTED, ON 2L O2 VIA N/C SATURATING @ 100%, NO C/O PAIN OR DISCOMFORT, NO NOTED ACTIVE BLEEDING NOTED, NSR ON ON TELE MONITOR WITH HR IN TH 70S, IV INFUSION OF SANDOSTATIN @ 50MCG/HR, IV SITE PATENT WITH NO S/S OF INFILTRATION, SITTER AT BEDSIDE, CALL LIGHT WITHIN REACHED, ALL SAFETY MEASURES IN PLACED WELL ISOLATION PRECAUTIONS, WILL CONTINUE TO MONITOR CLOSELY.
--- NOTE | 2019-04-12 19:41 | NUR ---
TD/RN AM SHIFT END NOTES ALL NEEDS MET. NO ACUTE CHANGE OF CONDITION NOTED DURING THE SHIFT. PT ENDORSED TO PM NURSE TO CONTINUE CARE. CL WITHIN REACHED, SAFETY MAINTAINED (SITTER AT BEDSIDE) AND ISOLATION OBSERVED.
[2019-04-12 20:00] VITALS: BP 117/65
--- NOTE | 2019-04-12 20:00 | NUR ---
CARLOS ENRIQUE RN NOTE PT IN BED AWAKE. A/O X 2, NO SOB, NO DISTRESS OR DISCOMFORT NOTED. DENIES PAIN. PT IN ISOLATION FOR MRSA NARES, ISOLATION PRECAUTIONS TAKEN. ON TELE SR HR 71. SITTER AT BED SIDE. SANDOSTATIN INFUSING AT 50 MCG/HR EQUAL TO 10 ML/HR. NO S/S OF INFILTRATION NOTED. SIDE RAILS UP X 2 AND CALL LIGHT WITHIN REACH. VSS. CONTINUE TO MONITOR HIM.
--- NOTE | 2019-04-12 20:15 | NUR ---
TD RN NOTES, ENDORSED PATIENT TO OSCAR LIND FOR CONTINUATION OF CARE.
--- NOTE | 2019-04-12 21:00 | NUR ---
CARLOS ENRIQUE RN NOTE HELD LACTULOSE PER PT HE HAD 5 TIMES BM IN A DAY.
[2019-04-13 04:00] VITALS: BP 121/65
[2019-04-13] MEDS: LACTULOSE 10 G/15 ML UDC (PYXIS) PO SCH ×2 (05:00→09:03)
--- NOTE | 2019-04-13 06:48 | NUR ---
CARLOS ENRIQUE RN NOTE PT IN BED AWAKE. NO DISTRESS OR DISCOMFORT NOTED. DENIES PAIN. ON TELE SR 81. SITTER AT BED SIDE. NO BEHAVIOR EPISODE NOTED. SIDE RAILS UP X 3 AND CALL LIGHT WITHIN REACH. WILL ENDORSE TO DAY SHIFT NURSE FOR CONTINUE TO CARE.
[2019-04-13 07:02] LABS: BASOPHILS % (AUTO) 0.5 % (0.0-2.0); EOSINOPHILS % (AUTO) 1.7 % (0.0-6.0); HEMATOCRIT 26 % (39-51); HEMOGLOBIN 8.4 g/dL (13.5-17.5); LYMPHOCYTES # (AUTO) 0.7 /CMM (0.8-4.8); LYMPHOCYTES % (AUTO) 20.3 % (20.0-44.0); MEAN CORPUSCULAR HGB CONC 33 g/dl (31.0-36.0); MEAN CORPUSCULAR VOLUME 92 fL (80-96); MONOCYTES # (AUTO) 0.9 /CMM (0.1-1.30); MONOCYTES % (AUTO) 26.2 % (2.0-12.0); NEUTROPHILS # (AUTO) 1.8 /CMM (1.8-8.9); NEUTROPHILS % (AUTO) 51.3 % (43.0-81.0); PLATELET COUNT (AUTO) 100 /CMM (150-450); RED BLOOD CELL COUNT(AUTO) 2.78 MIL/uL (4.5-6.0); WHITE BLOOD COUNT (AUTO) 3.6 K/uL (4.3-11.0)
[2019-04-13 07:26] LABS: ALBUMIN 2.6 g/dL (3.4-5.0); BILIRUBIN,DIRECT 0.7 mg/dL (0.0-0.2); BILIRUBIN,TOTAL 1.2 mg/dL (0.2-1.0); CALCIUM, SERUM 7.4 mg/dL (8.5-10.1); CREATININE 1.3 mg/dL (0.6-1.3); MAGNESIUM 1.6 mg/dL (1.8-2.4); PHOSPHORUS 2.6 mg/dL (2.5-4.9); POTASSIUM 3.4 mmol/L (3.5-5.1); TOTAL PROTEIN, SERUM 6.2 g/dL (6.4-8.2)
[2019-04-13] MEDS: BLOOD SUGAR DIAGNOSTIC 1 EACH STRIP IN SCH ×4 (07:53→22:00)
[2019-04-13 08:00] VITALS: BP 130/78
--- NOTE | 2019-04-13 08:00 | NUR ---
TD/RN AM SHIFT INITIAL NOTES RECEIVED PT AWAKE IN BED WITH SITTER AT BEDSIDE. PT ALERT X 2 WITH NOTED CONFUSION. PT DENIES ANY SYMPTOMS, NO ACTIVE BLEEDING NOTED. ON 2L O2 VIA N/C SATURATING @ 97%, RESPIRATIONS EVEN & UNLABORED, LUNG SOUNDS CLEAR. ON TELE WITH SINUS RHYTHM, HR 77. IV SITES PATENT WITH NO S/S OF INFECTION. BLOOD GLUCOSE CHECKED, 153, WILL BE GIVEN 2 UNITS REGULAR INSULIN PER ORDERED SLIDING SCALE, NO S/S OF HYPERGLYCEMIA. PT IS COMFORTABLE, SCHEDULED AM MEDS TO BE GIVEN. CL WITHIN REACHED, SAFETY MAINTAINED AND ISOLATIONS OBSERVED. ON GOING MONITORING. Addendum: 04/13/19 at 1104 by CARLENE BERTRAND RN ADDENDUM: RECEIVED PT WITH ON GOING IV INFUSION OF SANDOSTATIN 50MCG @ 10CC/HR.
[2019-04-13] MEDS: MUPIROCIN OINT 2% 22 GM TUBE SCH ×2 (08:19→21:00)
[2019-04-13] MEDS: DAKINS QUARTER STRENGTH (0.125%) 480 ML BOTTLE TOP SCH (08:20)
[2019-04-13] MEDS: PANTOPRAZOLE 40 MG TABLET.DR PO SCH ×2 (08:20→22:45)
[2019-04-13] MEDS: THIAMINE HCL 100 MG TABLET PO SCH (08:20)
[2019-04-13] MEDS: INSULIN REGULAR, HUMAN 100 UNIT/ML 3 ML VIAL SQ PRN ×3 (08:23→17:46)
--- NOTE | 2019-04-13 08:25 | NUR ---
TD/RN ROUNDS - DR. MENDOZA PT SEEN & EXAMINED BY DR. MENDOZA. WITH VERBAL ORDERS RECEIVED FOR PHYSICAL THERAPY EVALUATION AND TO CHANGE LACTULOSE MEDICATION TO ONCE DAILY 15GM. ORDER NOTED AND CARRIED OUT.
--- NOTE | 2019-04-13 08:31 | NUR ---
TD/RN ROUNDS - YORDAN ORO PT SEEN & EXAMINED BY SHORTY FARR. NO NEW ORDER RECEIVED.
[2019-04-13] MEDS ORDERED: LACTULOSE 10 G/15 ML UDC (PYXIS) PO SCH (09:00)
--- NOTE | 2019-04-13 10:21 | NUR ---
MSSophie/RN PHYSICAL THERAPY PT BEING SEEN BY PHYSICAL THERAPISTS. Addendum: 04/13/19 at 1034 by CARLENE BERTRAND RN ADDENDUM: PT WALKED WITH PROSTHESIS ASSISTED BY PHYSICAL THERAPISTS, WALKED 80 FEET, TOLERATED THERAPY.
--- NOTE | 2019-04-13 11:04 | NUR ---
MS1/QUILL BUNCHER AND SORTER OF CARE REPORT GIVEN TO NURSE TELLES PT ENDORSED TO CONTINUE CARE.
[2019-04-13] MEDS ORDERED: Magnesium 1GM/D5W 100ML PREMIX 100 ML IV SCH (11:30)
[2019-04-13] MEDS ORDERED: POTASSIUM CHLORIDE 20 MEQ TAB.PRT.SR PO ONE (11:30)
[2019-04-13 16:00] VITALS: BP 124/63
--- NOTE | 2019-04-13 19:30 | NUR ---
Received patient in the bed.Sitter at bedside.No unusual signs or symptoms observed or reported,no signs of discomfort or distress.Vital signs taken all are in the normal range.
[2019-04-13 20:00] VITALS: BP 140/65
--- NOTE | 2019-04-13 20:11 | NUR ---
M/S CLOSING NOTES PATIENT RECIVED BY PM NURSE- PATIENT IS BED WITH SITTER AT BEDSIDE. PATIENT IS A/O X4. PATIENT CURRENTLY HAS 1L OXYGEN, LUNGS SOUNDS CLEAR . S1 AND S2 REGULAR RHYTHM PATIENT IS AMBULATORY , PATIENT WAS ALSO WITH PT DURING AM SHIFT. PATIENT WAS ALSO WALKING AROUND WITH ASSISTANCE WITH [employer] REPAIR TEACHER. PATIENT HAS NORMAL SINUS RHYTHM. PATIENT WAS COOPERATIVE WITH CARE AND MEDICATIONS DURING SHIFT. PATIENT HGAS TWO IV SITES BOTH PATENT AND FLUSH BEFORE TRANSFER OF CARE. FAMILY ( PASCUAL- SON ) CAME BY TO GET UPDATE OF FATHERS CONDITION. PASCUAL STATED HE TALKED TO FOOD QUALITY TESTER ABOUT DADS DISCHARGE . PATIENT BED LOW AND SAFETY MAINTAINED
[2019-04-13] MEDS: LORAZEPAM 1 MG TABLET PO PRN (21:12)
[2019-04-14] MEDS: INSULIN REGULAR, HUMAN 100 UNIT/ML 3 ML VIAL SQ PRN ×5 (00:25→23:17)
--- NOTE | 2019-04-14 00:30 | NUR ---
MS RN NOTE RECEIVED PATIENT TO JUAN. PATIENT IN BED WITH NO SIGNS OF ANY DISTRESS. ALL SAFETY PRECAUTIONS APPLIED. WILL CONTINUE TO MONITOR PATIENT
--- NOTE | 2019-04-14 01:16 | NUR ---
Turned patient care over to OSCAR Bolton,no problems
[2019-04-14 04:00] VITALS: BP 137/63
[2019-04-14] MEDS: OCTREOTIDE 1,250 MCG in IV NS 0.9% 247.5 ML IV PRN (04:16)
[2019-04-14] MEDS: BLOOD SUGAR DIAGNOSTIC 1 EACH STRIP IN SCH ×4 (06:50→22:54)
[2019-04-14 06:54] LABS: BASOPHILS % (AUTO) 0.5 % (0.0-2.0); EOSINOPHILS % (AUTO) 1.7 % (0.0-6.0); HEMATOCRIT 26 % (39-51); HEMOGLOBIN 8.4 g/dL (13.5-17.5); LYMPHOCYTES # (AUTO) 0.8 /CMM (0.8-4.8); LYMPHOCYTES % (AUTO) 20.9 % (20.0-44.0); MEAN CORPUSCULAR HGB CONC 33 g/dl (31.0-36.0); MEAN CORPUSCULAR VOLUME 91 fL (80-96); MONOCYTES % (AUTO) 25.4 % (2.0-12.0); NEUTROPHILS % (AUTO) 51.5 % (43.0-81.0); PLATELET COUNT (AUTO) 138 /CMM (150-450)
[2019-04-14 07:13] LABS: CALCIUM, SERUM 7.6 mg/dL (8.5-10.1); CREATININE 1.2 mg/dL (0.6-1.3); MAGNESIUM 1.9 mg/dL (1.8-2.4); PHOSPHORUS 2.4 mg/dL (2.5-4.9); POTASSIUM 3.7 mmol/L (3.5-5.1)
--- NOTE | 2019-04-14 07:20 | NUR ---
MS/RN OPENING NOTES RECEIVED PATIENT IN BED AWAKE AND ABLE TO MAKE NEEDS KNOWN. NO PAIN OR ACUTE DISTRESS AT THIS TIME. RESPIRATION EVEN AND UNLABORED. SKIN IS DRY WARM TO TOUCH. SITTER AT BEDSIDE AT ALL TIMES. PATIENT ON O2 AND ABLE TO TOLERATE WELL. IV SITES INTACT AND PATENT WITH NO S/S OF INFECTION. FLUSHING WELL. NO S/S OF HYPERGLYCEMIA. NO ACTIVE BLEEDING NOTED. ALL NEEDS ANTICIPATED. CALL LIGHT WITHIN REACHED. BED LOCKED AND IN LOWEST POSITION. SAFETY MAINTAINED. WILL CONTINUE TO MONITOR CLOSELY.
--- NOTE | 2019-04-14 07:30 | NUR ---
MS RN CLOSING NOTE PATIENT IN BED WITH NO SIGNS OF ANY DISTRESS. ALL SAFETY PRECAUTIONS HAVE BEEN APPLIED. ENDORSED PATIENT TO MORNING SHIFT NURSE FOR JUAN.
[2019-04-14 07:37] LABS: EOSINOPHILS % (MANUAL) 2 % (0-4); LYMPHOCYTES % (MANUAL) 28 % (16-48); MONOCYTES % (MANUAL) 13 % (0-11.0); NEUTROPHILS % (MANUAL) 57 (42-76)
[2019-04-14 08:00] VITALS: BP_SYST 110; BP_SYST 142; BP_DIAS 75; BP_DIAS 76
[2019-04-14] MEDS: LACTULOSE 10 G/15 ML UDC (PYXIS) PO SCH (08:26)
[2019-04-14] MEDS: DAKINS QUARTER STRENGTH (0.125%) 480 ML BOTTLE TOP SCH (08:26)
[2019-04-14] MEDS: PANTOPRAZOLE 40 MG TABLET.DR PO SCH ×2 (08:26→21:26)
[2019-04-14] MEDS: THIAMINE HCL 100 MG TABLET PO SCH (08:26)
[2019-04-14] MEDS: MUPIROCIN OINT 2% 22 GM TUBE SCH ×2 (08:27→21:26)
[2019-04-14] MEDS: LORAZEPAM 1 MG TABLET PO PRN (13:22)
[2019-04-14] MEDS ORDERED: K PHOS NEUTRAL 250 MG TABLET PO ONE (13:30)
[2019-04-14 16:00] VITALS: BP_SYST 115; BP_SYST 144; BP_DIAS 75; BP_DIAS 81
[2019-04-14] MEDS: SUCRALFATE 1 G TABLET PO SCH ×2 (17:48→21:26)
--- NOTE | 2019-04-14 19:28 | NUR ---
MS/RN CLOSING NOTES PATIENT CONTINUES TO REMAIN IN STABLE CONDITION THROUGHOUT THE SHIFT. PROVIDED COMFORT AND SAFETY. PATIENT CONTINUES ON O2 AND ABLE TO TOLERATE WELL. IV SITES INTACT AND PATENT WITH NO S/S OF INFECTION. FLUSHING WELL. NO S/S OF HYPERGLYCEMIA. NO ACTIVE BLEEDING NOTED. ALL NEEDS ANTICIPATED. CALL LIGHT WITHIN REACHED. BED LOCKED AND IN LOWEST POSITION. SAFETY MAINTAINED. WILL CONTINUE TO MONITOR CLOSELY. ENDORSED TO PM NURSE FOR JUAN.
--- NOTE | 2019-04-14 19:30 | NUR ---
MS RN OPENING NOTE RECEIVED PATIENT A/O X 3. NO SIGNS OF ANY DISTRESS OR DISCOMFORT. PATIENT IS ON ROOM AIR WITH NO SIGNS OF ANY SOB. PATIENT HAS A RT BKA WITH NO SIGNS OF INFECTIONS OR IRRITATION. PATIENT IS ABLE TO AMBULATE WITH ASSISTANCE. IV ACCESS ON THE AHMET #20 WITH SANDOSTATIN RUNNING AT 10ML/HR (50MCG/HR) AND A LT FA #22 S/L. SKIN IS INTACT. ALL SAFETY PRECAUTIONS APPLIED. WILL CONTINUE TO MONITOR
[2019-04-14 20:00] VITALS: BP 129/69
[2019-04-15] MEDS: LORAZEPAM 1 MG TABLET PO PRN ×4 (01:15→22:12)
[2019-04-15 04:00] VITALS: BP 142/78
[2019-04-15 06:25] LABS: BASOPHILS % (AUTO) 0.6 % (0.0-2.0); EOSINOPHILS % (AUTO) 1.7 % (0.0-6.0); HEMATOCRIT 26 % (39-51); HEMOGLOBIN 8.4 g/dL (13.5-17.5); LYMPHOCYTES % (AUTO) 25.7 % (20.0-44.0); MEAN CORPUSCULAR HGB CONC 33 g/dl (31.0-36.0); MEAN CORPUSCULAR VOLUME 91 fL (80-96); MONOCYTES # (AUTO) 1.1 /CMM (0.1-1.30); MONOCYTES % (AUTO) 28.9 % (2.0-12.0); NEUTROPHILS # (AUTO) 1.7 /CMM (1.8-8.9); NEUTROPHILS % (AUTO) 43.1 % (43.0-81.0); PLATELET COUNT (AUTO) 148 /CMM (150-450); RED BLOOD CELL COUNT(AUTO) 2.82 MIL/uL (4.5-6.0)
[2019-04-15] MEDS: OCTREOTIDE 1,250 MCG in IV NS 0.9% 247.5 ML IV PRN (06:27)
[2019-04-15] MEDS: INSULIN REGULAR, HUMAN 100 UNIT/ML 3 ML VIAL SQ PRN ×4 (06:39→22:14)
[2019-04-15] MEDS: BLOOD SUGAR DIAGNOSTIC 1 EACH STRIP IN SCH ×4 (06:43→22:12)
[2019-04-15] MEDS: SUCRALFATE 1 G TABLET PO SCH ×4 (06:45→22:04)
[2019-04-15 07:14] LABS: CALCIUM, SERUM 7.5 mg/dL (8.5-10.1); CREATININE 1.3 mg/dL (0.6-1.3); MAGNESIUM 1.7 mg/dL (1.8-2.4); POTASSIUM 3.6 mmol/L (3.5-5.1)
--- NOTE | 2019-04-15 07:21 | NUR ---
MS RN CLOSING NOTE PATIENT IN BED SITTING WITH SITTER OBSERVING. PATIENT SHOWS NO SIGNS OF ANY DISTRESS OR SOB. ALL SAFETY PRECAUTIONS HAVE BEEN APPLIED. ENDOSRED PATIENT TO MORNING SHIFT NURSE TO [facility].
[2019-04-15 07:30] LABS: EOSINOPHILS % (MANUAL) 1 % (0-4); LYMPHOCYTES % (MANUAL) 27 % (16-48); MONOCYTES % (MANUAL) 34 % (0-11.0); NEUTROPHILS % (MANUAL) 38 (42-76)
--- NOTE | 2019-04-15 07:34 | NUR ---
recieved with sandostatin at 10 ml/hour to the left ac iv site, sitting at the edge of the bed. janet rivera at bedside,
[2019-04-15] MEDS: THIAMINE HCL 100 MG TABLET PO SCH (08:15)
[2019-04-15] MEDS: PANTOPRAZOLE 40 MG TABLET.DR PO SCH ×2 (08:15→22:05)
[2019-04-15] MEDS: LACTULOSE 10 G/15 ML UDC (PYXIS) PO SCH (08:16)
[2019-04-15] MEDS: DAKINS QUARTER STRENGTH (0.125%) 480 ML BOTTLE TOP SCH (08:18)
[2019-04-15] MEDS: MUPIROCIN OINT 2% 22 GM TUBE SCH ×2 (08:20→22:04)
--- NOTE | 2019-04-15 10:04 | NUR ---
PATIENT IS FOR PHYSICAl therapy and needs the sandostatin discontinued but i will need an orders to have it discontinued, will call Dr Braun if the sandostatin still to continue ,sandostatin discontinued by the charge nurse for the physical therapy.iv cannula kept on [facility].
[2019-04-15] MEDS: Magnesium 1GM/D5W 100ML PREMIX 100 ML IV SCH ×2 (11:37→12:57)
[2019-04-15 12:00] VITALS: BP 135/76
--- NOTE | 2019-04-15 13:31 | NUR ---
SPREAD CUTTER IN AND INFOIRMED THAT THE PATIENT HAS FORMS THAT THE PHYSICIAN NEEDS TO COMPLETE, MAGNESIUM SECONG BAG IS INFUSING AT 100 ML/HOUR.
--- NOTE | 2019-04-15 13:50 | NUR ---
DR ALICEA INFORMED AB OUT THE SANDOSTATIN KAVIN WILL MBE ORDERED DISCONTINUED
--- NOTE | 2019-04-15 14:16 | NUR ---
MARIO RAMSAY DISCONTINUED ORDERED Addendum: 04/15/19 at 1417 by ANDREW MSOS RN MAGNESIUM RIDER COM=NSUMED AND NO SIGNS OF UNTOWARD REACTION NOTED, Addendum: 04/15/19 at 1550 by ANDREW MOSS RN WITH ORDERS MFOR DISCHAEGE AND PATIENT REFUSED TO BE DISCHARGE .CHARGE NURSE IS AWARE.
[2019-04-15] MEDS ORDERED: SUCR1TAB PO (14:46)
[2019-04-15] MEDS ORDERED: NADO20TA12 PO (14:46)
[2019-04-15] MEDS ORDERED: PANT40TA2 PO (14:46)
[2019-04-15 16:00] VITALS: BP 128/61
--- NOTE | 2019-04-15 19:45 | NUR ---
MS RN NOTE: RECEIVED PT ON BED ASLEEP BUT AROUSES EASILY TO VERBAL AND TACTILE STIMULI. SITTER AT BEDSIDE. NO ACUTE DISTRESS NOTED. NO COMPLAINTS OF PAIN OR DISCOMFORT. ON ROOM AIR, SATURATING WELL. IV ON LEFT FORERARM #22 INTACT AND PATENT, FLUSHING WELL. KEPT CLEAN, DRY AND COMFORTABLE. SAFETY AND FALL PRECAUTIONS OBSERVED AND MAINTAINED. WILL CONTINUE TO MONITOR PT
[2019-04-15 20:00] VITALS: BP 102/57
[2019-04-16 04:00] VITALS: BP 133/82
--- NOTE | 2019-04-16 06:46 | NUR ---
MS RN NOTE: NO CHANGES NOTED THROUGHOUT THE SHIFT. NO APPARENT DISTRESS NOTED. NO COMPLAINTS OF PAIN OR DISCOMFORT AT THIS TIME. KEPT CLEAN, DRY AND COMFORTABLE. SAFETY AND FALL PRECAUTIONS OBSERVED AND MAINTAINED. WILL ENDORSE TO DAY SHIFT RN FOR CONTINUITY OF CARE
--- NOTE | 2019-04-16 07:10 | NUR ---
RN NOTE: RECEIVED PT SITTING ON THE EDGE OF THE BED, A/Ox4, ON RA, NO SOB NOTED, RESPIRATION EVEN AND UNLABORED, NO DISTRESS NOTED, BUCKY ANY DISCOMFORT, IV ON LEFT FOREARM #22 INTACT AND PATENT, FLUSHING WELL. CALL LIGHT WITHIN EASY REACH, BED LOCKED AND IN LOWEST POSITION, KEPT CLEAN, DRY AND COMFORTABLE. SAFETY AND FALL PRECAUTIONS OBSERVED AND MAINTAINED. WILL CONTINUE TO MONITOR PT
[2019-04-16 08:00] VITALS: BP 131/75
[2019-04-16] MEDS: SUCRALFATE 1 G TABLET PO SCH ×2 (08:36→12:06)
[2019-04-16] MEDS: PANTOPRAZOLE 40 MG TABLET.DR PO SCH (08:36)
[2019-04-16] MEDS: THIAMINE HCL 100 MG TABLET PO SCH (08:36)
[2019-04-16] MEDS: LACTULOSE 10 G/15 ML UDC (PYXIS) PO SCH (08:37)
[2019-04-16] MEDS: DAKINS QUARTER STRENGTH (0.125%) 480 ML BOTTLE TOP SCH (08:38)
[2019-04-16] MEDS: MUPIROCIN OINT 2% 22 GM TUBE SCH (08:39)
[2019-04-16] MEDS: BLOOD SUGAR DIAGNOSTIC 1 EACH STRIP IN SCH ×2 (08:41→12:06)
[2019-04-16] MEDS: INSULIN REGULAR, HUMAN 100 UNIT/ML 3 ML VIAL SQ PRN ×2 (08:41→12:06)
[2019-04-16] MEDS: LORAZEPAM 1 MG TABLET PO PRN (08:46)
--- NOTE | 2019-04-16 10:00 | NUR ---
RN NOTES PT REFUSED DISCHARGE SKIN PHOTO TO BE TAKEN , STATED HOSPITAL HAS TAKEN ENOUGH WOUND PICTURES FROM HIM, EXPLAINED TO PT HOW IMPORTANT IS TO TAKE PICTURES OF HIS WOUND UPON DISCHARGE , PT STILL REFUSED .
--- NOTE | 2019-04-16 11:59 | NUR ---
RN NOTES PT STATED " I REFUSED DISCHARGE PHOTO".
[2019-04-16 12:00] VITALS: BP 130/79
--- NOTE | 2019-04-16 12:30 | NUR ---
RN NOTES DISCHARGE INSTRUCTION GIVEN TO PT. PT VERBALIZES UNDERSTANDING, H/L DISCONTINUED. PT LEFT THE FLOOR TO MAIN ENTRANCE BY W/C ACCOMPANIED BY STAFF MEMBER IN STABLE CONDITION. PT WENT HOME BY [employer] VIA PRIVATE CAR.
== END 2019-04-16 12:30 | disposition home or self-care (01) | DRG 981 ==
LOC: ER 00:20 → TELE1 02:57 → TELE-TD 03:33 → MEDSG1 04-13 10:58
PROVIDERS: ATTEND Hospitalist
PROC: 0DJ08ZZ Inspection of Upper Intestinal Tract, Via Natural or Artificial Opening Endoscopic (ICD-10-PCS; principal; 2019-04-08)
PROC: 0KBS0ZZ Excision of Right Lower Leg Muscle, Open Approach (ICD-10-PCS; principal; 2019-04-08)
DX: K29.70 Gastritis, unspecified, without bleeding (principal); N17.0 Acute kidney failure with tubular necrosis; I85.11 Secondary esophageal varices with bleeding; G92 Toxic encephalopathy; K25.4 Chronic or unspecified gastric ulcer with hemorrhage; K76.6 Portal hypertension; E44.0 Moderate protein-calorie malnutrition; D62 Acute posthemorrhagic anemia; I13.0 Hypertensive heart and chronic kidney disease with heart failure and stage 1 through stage 4 chronic kidney disease, or unspecified chronic kidney disease; I50.32 Chronic diastolic (congestive) heart failure; E87.1 Hypo-osmolality and hyponatremia; K70.30 Alcoholic cirrhosis of liver without ascites; K31.89 Other diseases of stomach and duodenum; D69.6 Thrombocytopenia, unspecified; S81.801A Unspecified open wound, right lower leg, initial encounter; E11.22 Type 2 diabetes mellitus with diabetic chronic kidney disease; F32.9 Major depressive disorder, single episode, unspecified; I25.10 Atherosclerotic heart disease of native coronary artery without angina pectoris; K44.9 Diaphragmatic hernia without obstruction or gangrene; K76.0 Fatty (change of) liver, not elsewhere classified; N18.9 Chronic kidney disease, unspecified; Z89.511 Acquired absence of right leg below knee; Z82.49 Family history of ischemic heart disease and other diseases of the circulatory system; Z79.4 Long term (current) use of insulin; Z87.891 Personal history of nicotine dependence; F10.20 Alcohol dependence, uncomplicated; E87.6 Hypokalemia; B18.2 Chronic viral hepatitis C; E11.65 Type 2 diabetes mellitus with hyperglycemia; E78.5 Hyperlipidemia, unspecified; E83.39 Other disorders of phosphorus metabolism; E83.42 Hypomagnesemia; E83.52 Hypercalcemia; E86.0 Dehydration; E86.9 Volume depletion, unspecified; S81.001A Unspecified open wound, right knee, initial encounter; X58.XXXA Exposure to other specified factors, initial encounter; Y92.9 Unspecified place or not applicable
CPT/HCPCS: 36415; 70450-TC; 80048-TC; 80053-TC; 80061-TC; 80074; 80076-TC; 81000-TC; 82140-TC; 82570-TC; 82962-TC; 83690-TC; 83735-TC; 84100-TC; 84155-TC; 84300-TC; 84443-TC; 84484-TC; 85025-TC; 85027-TC; 85730-TC; 86850-TC; 87081-TC; 93307-TC; 97110-TC; 97112-TC; 97116-TC; 97530-TC; A6253; A6403; A6407; C9113; G0378; J0696; J1815; J2060; J2270; J2354; J2370; J2405; J2704; J3411; J3475; J3480; J3490; J7030; J7040; J7050; J7060; Q2036

== ENCOUNTER 2020-04-20 18:06 | Emergency (ER) | payer BC ==
[~2020-04-20] VITALS: Ht 182.9 cm; Wt 85.7 kg
[~2020-04-20 18:06] MED LIST changes: -Blood Sugar Diagnostic IN; -CEFT1FRO2 IV; -ENOX40DI SQ; -FOLI1TAB16 PO; -INSU100V28 SQ; -LACT1CAP72 PO; +LOSA50TA39 PO; +NADO20TA3 PO; +PANT40TA2 PO; -Prosource GT; +SITA1TAB6 PO; +SUCR1TAB PO; -THIA100T13 PO
--- NOTE | 2020-04-20 18:33 | NUR ---
CAME IN FOR L 5th TOE LACERATION TODAY. PATIENT STATES "I DIDN'T KMOW HOW IT HAPPENED' I CAN'T FEEL ANYTHING FROM ANKLE DOWN". TO ER BED 11, HOOKED TO MONITOR, WARM BLANKET PROVIDED, AWAITING MD SOSA
--- NOTE | 2020-04-20 18:41 | NUR ---
YORDAN VILLAVICENCIO AT BEDSIDE
[2020-04-20] MEDS ORDERED: CEPHALEXIN MONOHYDRATE 500 MG CAPSULE PO ONE (18:56)
[2020-04-20] MEDS ORDERED: BACITRACIN ZINC OINT PACKET 1 EA PACKET TP ONE (18:56)
[2020-04-20] MEDS: CEPHALEXIN MONOHYDRATE 500 MG CAPSULE PO ONE (18:58)
--- NOTE | 2020-04-20 18:58 | NUR ---
SCREEDMAN/LABORER AT BEDSIDE CLEANSING L 5TH TOE LAC
--- NOTE | 2020-04-20 19:12 | NUR ---
REPORT GIVEN TO MIS MOORE FOR JUAN
[2020-04-20] MEDS: BACITRACIN ZINC OINT PACKET 1 EA PACKET TP ONE (20:08)
--- NOTE | 2020-04-20 20:10 | NUR ---
EMT AT BEDSIDE
--- NOTE | 2020-04-20 20:24 | NUR ---
Patient discharged to home in stable condition. Written and verbal after care instructions given. Patient verbalizes understanding of instruction and rx. PT left the E.D. with Son. [email or web address].
[2020-04-20 20:25] VITALS: BP 131/76
== END 2020-04-20 20:26 | disposition home or self-care (01) ==
LOC: ER 18:14
DX: S92.512B Displaced fracture of proximal phalanx of left lesser toe(s), initial encounter for open fracture (principal); E11.649 Type 2 diabetes mellitus with hypoglycemia without coma; G62.9 Polyneuropathy, unspecified; I10 Essential (primary) hypertension; Z89.511 Acquired absence of right leg below knee; Z60.2 Problems related to living alone; Z79.899 Other long term (current) drug therapy; X58.XXXA Exposure to other specified factors, initial encounter; Y93.89 Activity, other specified; Y92.89 Other specified places as the place of occurrence of the external cause; Y99.8 Other external cause status
CPT/HCPCS: 73660; 99283; A6403

== ENCOUNTER 2020-11-29 11:09 | Emergency (ER) | payer BC ==
[~2020-11-29] VITALS: Ht 170.2 cm; Wt 76.2 kg
--- NOTE | 2020-11-29 12:03 | NUR ---
70 years old male alert, oriented x4 presents to er with sob, dry cough, sat 88% room air place on 3 liters NC.
[2020-11-29 12:34] LABS: BASOPHILS % (AUTO) 0.2 % (0.0-2.0); EOSINOPHILS % (AUTO) 0.7 % (0.0-6.0); HEMATOCRIT 41 % (39-51); HEMOGLOBIN 13.6 g/dL (13.5-17.5); LYMPHOCYTES # (AUTO) 0.5 /CMM (0.8-4.8); LYMPHOCYTES % (AUTO) 2.7 % (20.0-44.0); MEAN CORPUSCULAR HGB CONC 33 g/dl (31.0-36.0); MEAN CORPUSCULAR VOLUME 89 fL (80-96); MONOCYTES # (AUTO) 1.8 /CMM (0.1-1.30); MONOCYTES % (AUTO) 10.1 % (2.0-12.0); NEUTROPHILS # (AUTO) 15.6 /CMM (1.8-8.9); NEUTROPHILS % (AUTO) 86.3 % (43.0-81.0); PLATELET COUNT (AUTO) 290 /CMM (150-450); RED BLOOD CELL COUNT(AUTO) 4.64 MIL/uL (4.5-6.0); WHITE BLOOD COUNT (AUTO) 18.1 K/uL (4.3-11.0)
[2020-11-29] MEDS ORDERED: OMEP20CA15 PO (12:43)
[2020-11-29] MEDS ORDERED: FERR325T24 PO (12:43)
[2020-11-29] MEDS ORDERED: METF-442 PO (12:43)
[2020-11-29] MEDS ORDERED: GABA-532 PO ×2 (12:43)
[2020-11-29] MEDS ORDERED: PROP20TA19 PO (12:43)
[2020-11-29 12:44] LABS: CALCIUM, SERUM 8.9 mg/dL (8.5-10.1); CARBON DIOXIDE 23 mmol/L (21-32); CHLORIDE 99 mmol/L (98-107); CREATININE 1.1 mg/dL (0.6-1.3); GLUCOSE 178 mg/dL (74-106); POTASSIUM 3.9 mmol/L (3.5-5.1); SODIUM SERUM 135 mmol/L (136-145); UREA NITROGEN, BLOOD 17 mg/dL (7-18)
[2020-11-29] MEDS ORDERED: DAPT500V2 IV (12:44)
[2020-11-29 12:56] LABS: ALANINE AMINOTRANSFERASE 17 U/L (12-78); ALBUMIN 2.4 g/dL (3.4-5.0); ALKALINE PHOSPHATASE 103 U/L (46-116); ASPARTATE AMINOTRANSFERASE 26 U/L (15-37); BILIRUBIN,DIRECT 1.7 mg/dL (0.0-0.2); BILIRUBIN,TOTAL 2.4 mg/dL (0.2-1.0); TOTAL PROTEIN, SERUM 7.3 g/dL (6.4-8.2)
[2020-11-29 14:49] VITALS: BP 118/50
--- NOTE | 2020-11-29 14:56 | NUR ---
PAGED EPIC CARDIO PER DR. TAI REQUEST, DR. BYRD ON-CALL. AWATING FOR CALL BACK.
== END 2020-11-29 15:09 | disposition left against medical advice (07) ==
LOC: ER 11:09
DX: J96.91 Respiratory failure, unspecified with hypoxia (principal); J18.9 Pneumonia, unspecified organism; Z20.822 Contact with and (suspected) exposure to COVID-19; D72.829 Elevated white blood cell count, unspecified; R00.0 Tachycardia, unspecified; Z89.511 Acquired absence of right leg below knee; E11.40 Type 2 diabetes mellitus with diabetic neuropathy, unspecified; Z79.84 Long term (current) use of oral hypoglycemic drugs; Z79.899 Other long term (current) drug therapy; I10 Essential (primary) hypertension
CPT/HCPCS: 36415; 71045; 80048; 80076; 83880; 84484; 85025; 85730; 87426; 93005; 99285; C9803